=== PATIENT | female | born 1980 | race African-American/Black ===

== ENCOUNTER 2016-11-11 00:04 | Emergency (ER) | payer OTHER ==
[~2016-11-11] VITALS: Ht 162.6 cm; Wt 89.0 kg
[~2016-11-11 00:04] MED LIST: BACTRIM DS1 TAB PO; CIPRO500 MG OR; CIPROFLOXACN500 MG PO; DOXYCYCL HYC100 MG PO; ERYTHROCIN500 MG OR; FLEXERIL OR; FLEXERIL PO; FOLIC ACID400 MC1 OR; IBUPROFEN600 MG PO; IRON325 MG PO; LORTAB 10 OR; LORTAB 5 OR; LORTAB 7.57.5 MG PO; MEDDOSEPAK PO; MIRALAX3350 N1 PO; MOTRIN800 MG OR; NAPROSYN500 MG OR; NAPROSYN500 MG PO; NAPROXEN500 MG OR; NO HOME MEDS; NO MEDS; NORCO1 TA1 PO; NORCO1 TA2 PO; ONDANSETRON4 MG PO; PERCOCET 10/31 COMBO PO; PERCOCET 5/325M1 TAB PO; PERCOCET1 TA4 PO; PRENATA3 OR; PRENATA3 PO; PREVACID30 M2 PO; PROAIR HFA IN; PROCARDIA10 MG PO; ROBITUSSI2 OR; ROBITUSSIN200 MG/10 PO; Robitussin DM OR; TESSALON PER100 MG PO; TYLENOL325 MG PO; ULTRAM50 M1 OR; ULTRAM50 M1 PO; ULTRAM50 MG OR; VICODIN1 TA1 PO; VISTARIL25 MG PO; ZITHROMAX250 MG OR; ZITHROMAX250 MG PO; ZOFRAN ODT4 MG OR; ZOFRAN ODT4 MG PO; ZOFRAN4 MG/TAB PO; ZPAK OR; ZPAK PO
[2016-11-11] MEDS ORDERED: TORADOL PO (01:09)
[2016-11-11] MEDS ORDERED: CLINDAMYCIN300 M1 PO (01:09)
[2016-11-11 01:29] VITALS: BP 118/70
== END 2016-11-11 01:30 | disposition home or self-care (01) | DRG 159 ==
LOC: ED 00:04
DX: K08.89 Other specified disorders of teeth and supporting structures (principal)

== ENCOUNTER 2017-01-15 09:47 | Emergency (ER) | payer SELFPAY ==
[~2017-01-15] VITALS: Ht 162.6 cm; Wt 100.0 kg
[~2017-01-15 09:47] MED LIST changes: +CLINDAMYCIN300 M1 PO; +TORADOL PO
[2017-01-15 10:41] LABS: HEMATOCRIT 37.5 % (37.0-47.0); HEMOGLOBIN 11.9 g/dl (12.0-16.0); IMMATURE GRANULOCYTES 0.2 % (0.0-1.0); MEAN CELL VOLUME 70.9 fL CALC (80.0-100.0); MEAN CORPUSCULAR HGB 22.5 pG CALC (26.0-32.0); MEAN CORPUSCULAR HGB CONC 31.7 g/L CALC (32.0-36.0); NEUT# 4.4 thou/uL (2.00-7.15); RED BLOOD COUNT 5.29 mill/uL (4.20-5.60); RED CELL DISTRI WIDTH 14.9 % (11.5-15.5)
[2017-01-15 10:42] LABS: URINE BILIRUBIN - DIPSTICK NEGATIVE (NEGATIVE); URINE BLOOD DIPSTICK NEGATIVE (NEGATIVE); URINE CLARITY CLEAR; URINE COLOR YELLOW; URINE GLUCOSE - DIPSTICK NEGATIVE (NEGATIVE); URINE KETONE NEGATIVE (NEGATIVE); URINE LEUK ESTERASE TRACE (Negative); URINE NITRITE - DIPSTICK NEGATIVE (Negative); URINE PROTEIN - DIPSTICK NEGATIVE (NEG-TRACE); URINE UROBILINOGEN - DIPSTICK 0.2 E.U./dL (0.2)
[2017-01-15 11:04] LABS: ALBUMIN 4.2 g/dL (3.2-5.0); ALKALINE PHOSPHATASE 76 u/l (38-126); ANION GAP 14 (6-22 (CALC)); BILIRUBIN, TOTAL 0.3 mg/dL (0.0-1.4); BUN 12 mg/dL (7-17); BUN/CREATININE RATIO 15 (12-20 (CALC)); CALCIUM 9.4 mg/dL (8.4-10.2); CARBON DIOXIDE 27 mmol/l (22-30); CHLORIDE 106 mmol/l (95-108); CREATININE 0.8 mg/dL (0.5-1.0); GFR > 60 ML/MIN (>=60 (CALC)); GFR FOR AFR.AMER. > 60 ML/MIN (>=60 (CALC)); GLUCOSE 92 mg/dL (65-105); LIPASE 58 u/l (23-300); POTASSIUM 4.4 mmol/l (3.5-5.1); SGOT/AST 31 u/l (14-36); SGPT/ALT 42 u/l (9-52); SODIUM 142 mmol/l (137-146); TOTAL PROTEIN 6.8 g/dL (6.3-8.2)
[2017-01-15 12:06] VITALS: BP 111/61
[2017-01-15] MEDS ORDERED: IBUPROFEN600 MG PO (12:41)
[2017-01-15] MEDS ORDERED: FLEXERIL PO (12:41)
== END 2017-01-15 12:56 | disposition home or self-care (01) | DRG 951 ==
LOC: ED 09:47
PROVIDERS: Emergency Medicine
DX: F17.210 Nicotine dependence, cigarettes, uncomplicated (principal); F41.9 Anxiety disorder, unspecified; M54.5 Low back pain; J45.909 Unspecified asthma, uncomplicated; G89.29 Other chronic pain; R10.32 Left lower quadrant pain

== ENCOUNTER 2017-02-03 20:45 | Emergency (ER) | payer MEDICAID ==
[~2017-02-03] VITALS: Ht 162.6 cm; Wt 90.0 kg
[2017-02-03] MEDS ORDERED: MOTRIN800 MG PO (21:54)
[2017-02-03] MEDS ORDERED: FLEXERIL PO (21:54)
[2017-02-03 22:00] VITALS: BP 117/66
== END 2017-02-03 22:09 | disposition home or self-care (01) | DRG 563 ==
LOC: ED 20:45
DX: S83.92XA Sprain of unspecified site of left knee, initial encounter (principal); S09.90XA Unspecified injury of head, initial encounter; Y04.2XXA Assault by strike against or bumped into by another person, initial encounter; X50.1XXA Overexertion from prolonged static or awkward postures, initial encounter; Y93.F9 Activity, other caregiving; Y92.126 Garden or yard of nursing home as the place of occurrence of the external cause

== ENCOUNTER 2017-05-01 01:17 | Emergency (ER) | payer SELFPAY ==
[~2017-05-01] VITALS: Ht 162.6 cm; Wt 90.9 kg
[~2017-05-01 01:17] MED LIST changes: +MOTRIN800 MG PO
[2017-05-01] MEDS ORDERED: LORTAB 10-325 M1 TAB PO (01:44)
[2017-05-01 02:35] VITALS: BP 120/65
== END 2017-05-01 02:35 | disposition home or self-care (01) | DRG 563 ==
LOC: ED 01:17
DX: S83.92XA Sprain of unspecified site of left knee, initial encounter (principal); F41.9 Anxiety disorder, unspecified; J45.909 Unspecified asthma, uncomplicated; G89.29 Other chronic pain; M54.5 Low back pain; F17.210 Nicotine dependence, cigarettes, uncomplicated; X50.1XXA Overexertion from prolonged static or awkward postures, initial encounter

== ENCOUNTER 2017-07-05 21:58 | Emergency (ER) | payer OTHER ==
[~2017-07-05] VITALS: Ht 162.6 cm; Wt 88.6 kg
[~2017-07-05 21:58] MED LIST changes: +LORTAB 10-325 M1 TAB PO
[2017-07-05 23:45] LABS: INFLUENZA A NONE DETECTED (NONE DETECT); INFLUENZA B NONE DETECTED (NONE DETECT)
[2017-07-06] MEDS ORDERED: ROBITUSSIN200 MG/10 PO (00:05)
[2017-07-06] MEDS ORDERED: CIPROFLOXACN500 MG PO (00:06)
[2017-07-06 00:11] VITALS: BP 101/62
== END 2017-07-06 00:18 | disposition home or self-care (01) | DRG 153 ==
LOC: ED 21:58
PROVIDERS: Emergency Medicine
DX: J06.9 Acute upper respiratory infection, unspecified (principal); F17.210 Nicotine dependence, cigarettes, uncomplicated; J45.909 Unspecified asthma, uncomplicated; G89.29 Other chronic pain; M54.5 Low back pain

== ENCOUNTER 2017-11-06 02:45 | Emergency (ER) | payer BC ==
[~2017-11-06] VITALS: Ht 162.6 cm; Wt 86.4 kg
[~2017-11-06 02:45] MED LIST changes: +GENTAMICIN15 ML/BTL OU; +TAM75CAP PO
[2017-11-06 03:26] LABS: INFLUENZA A NONE DETECTED (NONE DETECT); INFLUENZA B NONE DETECTED (NONE DETECT)
[2017-11-06] MEDS ORDERED: PROVENTIL HFA IN (03:40)
[2017-11-06] MEDS ORDERED: CODEINE/GUAIFEN1 SOL PO (03:40)
[2017-11-06] MEDS ORDERED: ZITHROMAX250 MG PO (03:40)
[2017-11-06 03:52] VITALS: BP 92/64
== END 2017-11-06 03:52 | disposition home or self-care (01) | DRG 203 ==
LOC: ED 02:45
PROVIDERS: Emergency Medicine
DX: J40 Bronchitis, not specified as acute or chronic (principal); J02.9 Acute pharyngitis, unspecified

== ENCOUNTER 2018-09-14 13:32 | Emergency (ER) | payer OTHER ==
[~2018-09-14] VITALS: Ht 162.6 cm; Wt 70.0 kg
[~2018-09-14 13:32] MED LIST changes: +CODEINE/GUAIFEN1 SOL PO; +DOXYCYC MONO100 M2 PO; +IPRATROPIU0.5 MG/3 M IN; +PREDNISONE10 MG PO; +PROTONIX40 M2 PO; +PROVENTIL HFA IN
[2018-09-14] MEDS ORDERED: PANTOPRAZOLE SO40 MG PO (13:50)
[2018-09-14 14:05] LABS: HEMOGLOBIN 13.6 g/dl (12.0-16.0); IMMATURE GRANULOCYTES 0.6 % (0.0-5.0); MEAN CELL VOLUME 71.8 fL CALC (80.0-100.0); MEAN CORPUSCULAR HGB 22.7 pG CALC (26.0-32.0); MEAN CORPUSCULAR HGB CONC 31.6 g/L CALC (32.0-36.0); NEUT# 4.87 thou/uL (2.00-7.15); RED BLOOD COUNT 5.99 mill/uL (4.20-5.60); RED CELL DISTRI WIDTH 16.2 % (11.5-15.5)
[2018-09-14 14:14] LABS: ALBUMIN 4.4 g/dL (3.2-5.0); ALKALINE PHOSPHATASE 79 u/l (38-126); BILIRUBIN, TOTAL 0.2 mg/dL (0.0-1.4); BUN 8 mg/dL (7-17); BUN/CREATININE RATIO 10 (12-20 (CALC)); CARBON DIOXIDE 21 mmol/l (22-30); CHLORIDE 106 mmol/l (95-108); CREATININE 0.8 mg/dL (0.5-1.0); GFR > 60 ML/MIN (>=60 (CALC)); GFR FOR AFR.AMER. > 60 ML/MIN (>=60 (CALC)); SGOT/AST 21 u/l (14-36); SODIUM 139 mmol/l (137-146); TOTAL PROTEIN 7.4 g/dL (6.3-8.2)
[2018-09-14 14:28] LABS: ANION GAP 16 (6-22 (CALC)); POTASSIUM 3.5 mmol/l (3.5-5.1)
[2018-09-14] MEDS ORDERED: MEDDOSEPAK PO (16:34)
[2018-09-14 16:37] VITALS: BP 130/86
== END 2018-09-14 16:42 | disposition home or self-care (01) ==
LOC: ED 13:32
PROVIDERS: Emergency Medicine
DX: J45.909 Unspecified asthma, uncomplicated (principal); R00.0 Tachycardia, unspecified; F17.200 Nicotine dependence, unspecified, uncomplicated; R07.9 Chest pain, unspecified; R06.02 Shortness of breath
CPT/HCPCS: Q9967

== ENCOUNTER 2018-10-30 16:14 | Emergency (ER) | payer OTHER ==
[~2018-10-30] VITALS: Ht 162.6 cm; Wt 86.0 kg
[~2018-10-30 16:14] MED LIST changes: +PANTOPRAZOLE SO40 MG PO
[2018-10-30] MEDS ORDERED: ZPAK PO (19:14)
[2018-10-30] MEDS ORDERED: TESSALON PERLE100 MG PO (19:14)
[2018-10-30 19:25] VITALS: BP 117/80
== END 2018-10-30 19:25 | disposition home or self-care (01) ==
LOC: ED 16:14
DX: R05 Cough (principal)

== ENCOUNTER 2018-11-08 12:55 | Emergency (ER) | payer OTHER ==
[~2018-11-08] VITALS: Ht 162.6 cm; Wt 86.4 kg
[~2018-11-08 12:55] MED LIST changes: +TESSALON PERLE100 MG PO
[2018-11-08 14:14] LABS: HEMATOCRIT 39.8 % (37.0-47.0); HEMOGLOBIN 12.4 g/dl (12.0-16.0); IMMATURE GRANULOCYTES 0.3 % (0.0-5.0); MEAN CELL VOLUME 72.2 fL CALC (80.0-100.0); MEAN CORPUSCULAR HGB 22.5 pG CALC (26.0-32.0); MEAN CORPUSCULAR HGB CONC 31.2 g/L CALC (32.0-36.0); NEUT# 4.16 thou/uL (2.00-7.15); RED BLOOD COUNT 5.51 mill/uL (4.20-5.60); RED CELL DISTRI WIDTH 15.5 % (11.5-15.5)
[2018-11-08 14:24] LABS: ALBUMIN 4.3 g/dL (3.2-5.0); ALKALINE PHOSPHATASE 73 u/l (38-126); BILIRUBIN, TOTAL 0.6 mg/dL (0.0-1.4); BUN 14 mg/dL (7-17); BUN/CREATININE RATIO 17 (12-20 (CALC)); CARBON DIOXIDE 24 mmol/l (22-30); CHLORIDE 102 mmol/l (95-108); CREATININE 0.8 mg/dL (0.5-1.0); GFR > 60 ML/MIN (>=60 (CALC)); GFR FOR AFR.AMER. > 60 ML/MIN (>=60 (CALC)); SGOT/AST 29 u/l (14-36); SODIUM 137 mmol/l (137-146); TOTAL PROTEIN 7.2 g/dL (6.3-8.2)
[2018-11-08 14:37] LABS: ANION GAP 16 (6-22 (CALC)); POTASSIUM 4.5 mmol/l (3.5-5.1)
[2018-11-08 15:32] LABS: BARBITURATES NEGATIVE (NEGATIVE); COCAINE POSITIVE (NEGATIVE); METHADONE NEGATIVE (NEGATIVE); OXCYCODONE NEGATIVE (NEGATIVE); TETRAHYDROCANNABIONOL POSITIVE (NEGATIVE); TRICYLIC ANTIDEPRESSANTS NEGATIVE (NEGATIVE)
[2018-11-08] MEDS ORDERED: LEVAQUIN500 MG PO (17:19)
[2018-11-08 17:24] VITALS: BP 114/69
== END 2018-11-08 17:25 | disposition home or self-care (01) ==
LOC: ED 12:55
PROVIDERS: Emergency Medicine
DX: R06.00 Dyspnea, unspecified (principal); J06.9 Acute upper respiratory infection, unspecified; F14.10 Cocaine abuse, uncomplicated; F12.10 Cannabis abuse, uncomplicated; R07.9 Chest pain, unspecified; R05 Cough
CPT/HCPCS: Q9967

== ENCOUNTER 2018-11-29 13:21 | Emergency (ER) | payer OTHER ==
[~2018-11-29] VITALS: Ht 162.6 cm; Wt 86.0 kg
[~2018-11-29 13:21] MED LIST changes: +LEVAQUIN500 MG PO
[2018-11-29 14:42] LABS: HEMATOCRIT 39.7 % (37.0-47.0); HEMOGLOBIN 12.6 g/dl (12.0-16.0); IMMATURE GRANULOCYTES 0.3 % (0.0-5.0); MEAN CELL VOLUME 72.2 fL CALC (80.0-100.0); MEAN CORPUSCULAR HGB 22.9 pG CALC (26.0-32.0); MEAN CORPUSCULAR HGB CONC 31.7 g/L CALC (32.0-36.0); NEUT# 5.33 thou/uL (2.00-7.15); RED BLOOD COUNT 5.5 mill/uL (4.20-5.60)
[2018-11-29 14:49] LABS: URINE BILIRUBIN - DIPSTICK NEGATIVE (NEGATIVE); URINE BLOOD DIPSTICK NEGATIVE (NEGATIVE); URINE COLOR YELLOW; URINE GLUCOSE - DIPSTICK NEGATIVE (NEGATIVE); URINE KETONE NEGATIVE (NEGATIVE); URINE LEUK ESTERASE NEGATIVE (NEGATIVE); URINE NITRITE - DIPSTICK NEGATIVE (Negative); URINE PROTEIN - DIPSTICK NEGATIVE (NEG-TRACE); URINE SPECIFIC GRAVITY >=1.030; URINE UROBILINOGEN - DIPSTICK 0.2 E.U./dL (0.2)
[2018-11-29 14:51] LABS: ALBUMIN 4.6 g/dL (3.2-5.0); ALKALINE PHOSPHATASE 90 u/l (38-126); ANION GAP 15 (6-22 (CALC)); BILIRUBIN, TOTAL 0.4 mg/dL (0.0-1.4); BUN 14 mg/dL (7-17); BUN/CREATININE RATIO 16 (12-20 (CALC)); CARBON DIOXIDE 23 mmol/l (22-30); CHLORIDE 105 mmol/l (95-108); CREATININE 0.9 mg/dL (0.5-1.0); GFR > 60 ML/MIN (>=60 (CALC)); GFR FOR AFR.AMER. > 60 ML/MIN (>=60 (CALC)); POTASSIUM 4.3 mmol/l (3.5-5.1); SGOT/AST 20 u/l (14-36); SODIUM 138 mmol/l (137-146); TOTAL PROTEIN 7.1 g/dL (6.3-8.2)
[2018-11-29 14:53] LABS: BARBITURATES NEGATIVE (NEGATIVE); COCAINE POSITIVE (NEGATIVE); METHADONE NEGATIVE (NEGATIVE); OXCYCODONE NEGATIVE (NEGATIVE); TETRAHYDROCANNABIONOL POSITIVE (NEGATIVE); TRICYLIC ANTIDEPRESSANTS NEGATIVE (NEGATIVE)
[2018-11-29 15:55] VITALS: BP 125/76
== END 2018-11-29 16:02 | disposition home or self-care (01) ==
LOC: ED 13:21
PROVIDERS: Emergency Medicine
DX: M79.10 Myalgia, unspecified site (principal); F14.90 Cocaine use, unspecified, uncomplicated; F15.90 Other stimulant use, unspecified, uncomplicated; F12.90 Cannabis use, unspecified, uncomplicated; F11.90 Opioid use, unspecified, uncomplicated; R05 Cough

== ENCOUNTER 2018-12-08 13:52 | Emergency (ER) | payer OTHER ==
[~2018-12-08] VITALS: Ht 162.6 cm; Wt 84.1 kg
[2018-12-08] MEDS ORDERED: ONDANSETRON4 MG PO (16:07)
[2018-12-08] MEDS ORDERED: CYCLOBENZAPR5 MG PO (16:07)
[2018-12-08] MEDS ORDERED: MOTRIN400 MG PO (16:07)
[2018-12-08 16:14] VITALS: BP 132/67
== END 2018-12-08 16:15 | disposition home or self-care (01) ==
LOC: ED 13:52
DX: S46.911A Strain of unspecified muscle, fascia and tendon at shoulder and upper arm level, right arm, initial encounter (principal); M25.511 Pain in right shoulder; Y04.0XXA Assault by unarmed brawl or fight, initial encounter; Y92.009 Unspecified place in unspecified non-institutional (private) residence as the place of occurrence of the external cause

== ENCOUNTER 2018-12-12 13:45 | Emergency (ER) | payer OTHER ==
[~2018-12-12] VITALS: Ht 162.6 cm; Wt 60.0 kg
[~2018-12-12 13:45] MED LIST changes: +CYCLOBENZAPR5 MG PO; +MOTRIN400 MG PO
[2018-12-12] MEDS ORDERED: TORADOL PO (14:50)
[2018-12-12 15:00] VITALS: BP 121/78
== END 2018-12-12 15:00 | disposition home or self-care (01) ==
LOC: ED 13:45
DX: M25.511 Pain in right shoulder (principal); Y04.0XXD Assault by unarmed brawl or fight, subsequent encounter; Y92.009 Unspecified place in unspecified non-institutional (private) residence as the place of occurrence of the external cause

== ENCOUNTER 2019-03-23 15:30 | Emergency (ER) | payer BC, OTHER ==
[~2019-03-23] VITALS: Ht 162.6 cm; Wt 80.0 kg
[2019-03-23 16:21] LABS: URINE BILIRUBIN - DIPSTICK NEGATIVE (NEGATIVE); URINE BLOOD DIPSTICK NEGATIVE (NEGATIVE); URINE COLOR YELLOW; URINE GLUCOSE - DIPSTICK NEGATIVE (NEGATIVE); URINE KETONE NEGATIVE (NEGATIVE); URINE LEUK ESTERASE NEGATIVE (NEGATIVE); URINE NITRITE - DIPSTICK NEGATIVE (Negative); URINE PH 6.5 (4.5-8.0); URINE PROTEIN - DIPSTICK NEGATIVE (NEG-TRACE); URINE SPECIFIC GRAVITY 1.015; URINE UROBILINOGEN - DIPSTICK 0.2 E.U./dL (0.2)
[2019-03-23 16:25] LABS: HEMATOCRIT 35.3 % (37.0-47.0); HEMOGLOBIN 11.1 g/dl (12.0-16.0); IMMATURE GRANULOCYTES 0.3 % (0.0-5.0); MEAN CORPUSCULAR HGB 22.7 pG CALC (26.0-32.0); MEAN CORPUSCULAR HGB CONC 31.4 g/L CALC (32.0-36.0); NEUT# 4.84 thou/uL (2.00-7.15); RED BLOOD COUNT 4.9 mill/uL (4.20-5.60); RED CELL DISTRI WIDTH 15.3 % (11.5-15.5)
[2019-03-23 16:36] LABS: ALBUMIN 4.4 g/dL (3.2-5.0); ALKALINE PHOSPHATASE 78 u/l (38-126); BILIRUBIN, TOTAL 0.3 mg/dL (0.0-1.4); BUN 11 mg/dL (7-17); BUN/CREATININE RATIO 15 (12-20 (CALC)); CHLORIDE 104 mmol/l (95-108); CREATININE 0.7 mg/dL (0.5-1.0); GFR > 60 ML/MIN (>=60 (CALC)); GFR FOR AFR.AMER. > 60 ML/MIN (>=60 (CALC)); POTASSIUM 4.4 mmol/l (3.5-5.1); SGOT/AST 20 u/l (14-36); SODIUM 138 mmol/l (137-146); TOTAL PROTEIN 6.9 g/dL (6.3-8.2)
[2019-03-23 16:37] LABS: ANION GAP 10 (6-22 (CALC)); CARBON DIOXIDE 28 mmol/l (22-30)
[2019-03-23] MEDS ORDERED: DICYCLOMINE 10 MG/ML IM (17:20)
[2019-03-23] MEDS ORDERED: TORADOL PO (17:21)
[2019-03-23 17:34] VITALS: BP 106/71
[2019-03-23] MEDS ORDERED: DICYCLOMINE10 MG PO (17:44)
== END 2019-03-23 17:51 | disposition home or self-care (01) | DRG 392 ==
LOC: ED 15:30
PROVIDERS: Emergency Medicine
DX: R10.9 Unspecified abdominal pain (principal); F17.210 Nicotine dependence, cigarettes, uncomplicated; Z87.442 Personal history of urinary calculi

== ENCOUNTER 2019-05-04 19:05 | Emergency (ER) | payer BC, OTHER ==
[~2019-05-04] VITALS: Ht 162.6 cm; Wt 87.7 kg
[~2019-05-04 19:05] MED LIST changes: +DICYCLOMINE 10 MG/ML IM; +DICYCLOMINE10 MG PO
[2019-05-04] MEDS ORDERED: ZITHROMAX250 MG PO (20:52)
[2019-05-04 21:00] VITALS: BP 118/70
== END 2019-05-04 21:00 | disposition home or self-care (01) | DRG 153 ==
LOC: ED 19:05
DX: J06.9 Acute upper respiratory infection, unspecified (principal); J45.909 Unspecified asthma, uncomplicated; Z87.01 Personal history of pneumonia (recurrent)

== ENCOUNTER 2019-05-11 01:08 | Emergency (ER) | payer BC, OTHER ==
[~2019-05-11] VITALS: Ht 162.6 cm; Wt 87.7 kg
[2019-05-11 01:42] LABS: HEMOGLOBIN 11.1 g/dl (12.0-16.0); IMMATURE GRANULOCYTES 0.4 % (0.0-5.0); MEAN CORPUSCULAR HGB 22.2 pG CALC (26.0-32.0); MEAN CORPUSCULAR HGB CONC 30.8 g/L CALC (32.0-36.0); NEUT# 2.95 thou/uL (2.00-7.15); RED CELL DISTRI WIDTH 15.1 % (11.5-15.5)
[2019-05-11 03:38] VITALS: BP 110/72
== END 2019-05-11 03:53 | disposition home or self-care (01) | DRG 866 ==
LOC: ED 01:08
PROVIDERS: Family Medicine
DX: B34.9 Viral infection, unspecified (principal); F17.210 Nicotine dependence, cigarettes, uncomplicated

== ENCOUNTER 2019-06-12 10:44 | Observation (INO) | payer BC, OTHER ==
[~2019-06-12] VITALS: Ht 162.6 cm; Wt 81.8 kg
[2019-06-12] MEDS ORDERED: MONTELUKAST SOD10 MG PO (10:52)
[2019-06-12] MEDS ORDERED: DOXYCYC MONO100 M2 PO (10:52)
[2019-06-12] MEDS ORDERED: PROTONIX20 M1 PO (10:52)
[2019-06-12] MEDS ORDERED: ALBUTEROL SUL0.083 % IN (10:53)
[2019-06-12] MEDS ORDERED: SYMBICORT 80-4.5MCG IN (10:53)
[2019-06-12 11:24] LABS: HEMATOCRIT 36.4 % (37.0-47.0); HEMOGLOBIN 11.7 g/dl (12.0-16.0); IMMATURE GRANULOCYTES 0.4 % (0.0-5.0); MEAN CELL VOLUME 70.7 fL CALC (80.0-100.0); MEAN CORPUSCULAR HGB 22.7 pG CALC (26.0-32.0); MEAN CORPUSCULAR HGB CONC 32.1 g/L CALC (32.0-36.0); NEUT# 5.37 thou/uL (2.00-7.15); RED BLOOD COUNT 5.15 mill/uL (4.20-5.60)
[2019-06-12 11:32] LABS: ANION GAP 14 (6-22 (CALC)); BUN 11 mg/dL (7-17); BUN/CREATININE RATIO 15 (12-20 (CALC)); CHLORIDE 103 mmol/l (95-108); CREATININE 0.7 mg/dL (0.5-1.0); GFR > 60 ML/MIN (>=60 (CALC)); GFR FOR AFR.AMER. > 60 ML/MIN (>=60 (CALC)); POTASSIUM 4.1 mmol/l (3.5-5.1); SODIUM 135 mmol/l (137-146)
[2019-06-12 11:38] LABS: CARBON DIOXIDE 22 mmol/l (22-30)
[2019-06-12 14:25] VITALS: BP 111/70
[2019-06-12 16:22] VITALS: BP 117/64
[2019-06-12 19:10] VITALS: BP 117/66
[2019-06-13 04:42] VITALS: BP 100/67
[2019-06-13 05:00] LABS: HEMATOCRIT 36.2 % (37.0-47.0); HEMOGLOBIN 11.2 g/dl (12.0-16.0); MEAN CORPUSCULAR HGB 22.3 pG CALC (26.0-32.0); MEAN CORPUSCULAR HGB CONC 30.9 g/L CALC (32.0-36.0); RED BLOOD COUNT 5.03 mill/uL (4.20-5.60); RED CELL DISTRI WIDTH 15.3 % (11.5-15.5)
[2019-06-13 05:24] LABS: ANION GAP 13 (6-22 (CALC)); BUN 15 mg/dL (7-17); BUN/CREATININE RATIO 19 (12-20 (CALC)); CARBON DIOXIDE 22 mmol/l (22-30); CHLORIDE 106 mmol/l (95-108); CREATININE 0.8 mg/dL (0.5-1.0); GFR > 60 ML/MIN (>=60 (CALC)); GFR FOR AFR.AMER. > 60 ML/MIN (>=60 (CALC)); POTASSIUM 4.9 mmol/l (3.5-5.1); SODIUM 136 mmol/l (137-146)
[2019-06-13 07:40] VITALS: BP 114/57
[2019-06-13 15:20] VITALS: BP 96/59
[2019-06-13 18:48] VITALS: BP 93/53
[2019-06-14 03:43] VITALS: BP 110/66
[2019-06-14 07:44] VITALS: BP 101/52
[2019-06-14 15:20] VITALS: BP 126/89
[2019-06-14 18:52] VITALS: BP 104/66
[2019-06-15 03:37] VITALS: BP 102/58
[2019-06-15 04:48] LABS: HEMATOCRIT 35.1 % (37.0-47.0); HEMOGLOBIN 11.1 g/dl (12.0-16.0); IMMATURE GRANULOCYTES 1.2 % (0.0-5.0); MEAN CELL VOLUME 71.5 fL CALC (80.0-100.0); MEAN CORPUSCULAR HGB 22.6 pG CALC (26.0-32.0); MEAN CORPUSCULAR HGB CONC 31.6 g/L CALC (32.0-36.0); NEUT# 16.28 thou/uL (2.00-7.15); RED BLOOD COUNT 4.91 mill/uL (4.20-5.60); RED CELL DISTRI WIDTH 15.4 % (11.5-15.5)
[2019-06-15 05:09] LABS: ANION GAP 11 (6-22 (CALC)); BUN 17 mg/dL (7-17); BUN/CREATININE RATIO 23 (12-20 (CALC)); CARBON DIOXIDE 25 mmol/l (22-30); CHLORIDE 104 mmol/l (95-108); CREATININE 0.7 mg/dL (0.5-1.0); GFR > 60 ML/MIN (>=60 (CALC)); GFR FOR AFR.AMER. > 60 ML/MIN (>=60 (CALC)); SODIUM 135 mmol/l (137-146)
[2019-06-15 07:35] VITALS: BP 100/57
[2019-06-15 16:00] VITALS: BP 98/55
[2019-06-15 19:50] VITALS: BP 118/70
[2019-06-16 04:10] VITALS: BP 107/62
[2019-06-16] MEDS ORDERED: LEVAQUIN750 MG PO (11:39)
[2019-06-16] MEDS ORDERED: PREDNISONE10 MG PO (11:39)
== END 2019-06-16 12:24 | disposition home or self-care (01) | DRG 194 ==
LOC: ED 10:44 → ED-I 11:58 → ED 12:15 → MS2 12:16
PROVIDERS: Family Medicine; Nurse Practitioner Family; ADMIT Internal Medicine; ATTEND Internal Medicine
PROC: 3E0234Z Introduction of Serum, Toxoid and Vaccine into Muscle, Percutaneous Approach (ICD-10-PCS; principal; 2019-06-14)
DX: J18.9 Pneumonia, unspecified organism (principal); J45.901 Unspecified asthma with (acute) exacerbation; B37.0 Candidal stomatitis; D50.9 Iron deficiency anemia, unspecified; K21.9 Gastro-esophageal reflux disease without esophagitis; F41.9 Anxiety disorder, unspecified; F17.200 Nicotine dependence, unspecified, uncomplicated; Z87.01 Personal history of pneumonia (recurrent); Z23 Encounter for immunization
CPT/HCPCS: G0378

== ENCOUNTER 2019-09-02 | Emergency (ER) | payer BC ==
[~2019-09-02] MED LIST changes: +ALBUTEROL SUL0.083 % IN; +LEVAQUIN750 MG PO; +MONTELUKAST SOD10 MG PO; +PROTONIX20 M1 PO; +SYMBICORT 80-4.5MCG IN
[2019-09-02] MEDS ORDERED: PROAIR HFA108 MCG/AC PO (22:08)
[2019-09-02] MEDS ORDERED: VOLTAREN - GENE75 MG PO (23:17)
[2019-09-02] MEDS ORDERED: FLEXERIL5 MG PO (23:17)
== END 2019-09-02 23:50 | disposition home or self-care (01) | DRG 74 ==
DX: M54.12 Radiculopathy, cervical region (principal); F17.210 Nicotine dependence, cigarettes, uncomplicated

== ENCOUNTER 2019-09-14 08:24 | Observation (INO) | payer BC ==
[~2019-09-14] VITALS: Ht 162.6 cm; Wt 87.5 kg
[~2019-09-14 08:24] MED LIST changes: +FLEXERIL5 MG PO; +PROAIR HFA108 MCG/AC PO; +VOLTAREN - GENE75 MG PO
--- NOTE | 2019-09-14 08:24 | NUR ---
PT IMMEDIATELY TO ROOM VIA WC WITH TACHYPNEA AND CONSTANT COUGHING
[2019-09-14] MEDS ORDERED: PREDNISONE10 MG PO (08:47)
--- NOTE | 2019-09-14 09:15 | NUR ---
PATIENT REPORTS HISTORY OF ASTHMA, STARTED TO HAVE SOB AND WHEEZING LAST PM. CURRENTLY ON BREATHING TREATMENT. SECOND IV SITE STARTED TO LAC, IM EPI GIVEN PER MD ORDER. PATIENT VERBAL ALERT AND ORIENTED X3. PATIENT HAS WHEEZING TO BILATERAL LUNGS. IV MEDS INFUSING WELL. WILL CONTINUE TO MONITOR.
[2019-09-14 09:26] LABS: HEMATOCRIT 39.6 % (37.0-47.0); HEMOGLOBIN 12.3 g/dl (12.0-16.0); IMMATURE GRANULOCYTES 0.3 % (0.0-5.0); MEAN CELL VOLUME 71.9 fL CALC (80.0-100.0); MEAN CORPUSCULAR HGB 22.3 pG CALC (26.0-32.0); MEAN CORPUSCULAR HGB CONC 31.1 g/L CALC (32.0-36.0); NEUT# 4.45 thou/uL (2.00-7.15); RED BLOOD COUNT 5.51 mill/uL (4.20-5.60); RED CELL DISTRI WIDTH 14.5 % (11.5-15.5)
[2019-09-14 09:37] LABS: ALBUMIN 4.5 g/dL (3.2-5.0); ALKALINE PHOSPHATASE 88 u/l (38-126); ANION GAP 15 (6-22 (CALC)); BILIRUBIN, TOTAL 0.2 mg/dL (0.0-1.4); BUN 9 mg/dL (7-17); BUN/CREATININE RATIO 11 (12-20 (CALC)); CARBON DIOXIDE 23 mmol/l (22-30); CHLORIDE 104 mmol/l (95-108); CREATININE 0.8 mg/dL (0.5-1.0); GFR > 60 ML/MIN (>=60 (CALC)); GFR FOR AFR.AMER. > 60 ML/MIN (>=60 (CALC)); POTASSIUM 4.2 mmol/l (3.5-5.1); SGOT/AST 24 u/l (14-36); SODIUM 138 mmol/l (137-146); TOTAL PROTEIN 7.4 g/dL (6.3-8.2)
--- NOTE | 2019-09-14 09:45 | NUR ---
REPORT GIVEN TO MARGARET COX.
[2019-09-14 09:53] LABS: HCG SERUM/URINE (NEG/POS) NEGATIVE (NEGATIVE)
--- NOTE | 2019-09-14 10:20 | NUR ---
AMBULATED PT TO BATHROOM ,GAIT STEADY , NO RESP DISTRESS. URINE CLOUDY YELLOW WITH FOUL ODOR. EDP UPDATED
[2019-09-14 10:41] LABS: URINE BILIRUBIN - DIPSTICK NEGATIVE (NEGATIVE); URINE BLOOD DIPSTICK NEGATIVE (NEGATIVE); URINE COLOR YELLOW; URINE GLUCOSE - DIPSTICK NEGATIVE (NEGATIVE); URINE KETONE NEGATIVE (NEGATIVE); URINE LEUK ESTERASE NEGATIVE (NEGATIVE); URINE NITRITE - DIPSTICK NEGATIVE (Negative); URINE PH 6.5 (4.5-8.0); URINE PROTEIN - DIPSTICK NEGATIVE (NEG-TRACE); URINE UROBILINOGEN - DIPSTICK 0.2 E.U./dL (0.2)
--- NOTE | 2019-09-14 10:45 | NUR ---
IV ABT INFUSING/FLUIDS INFUSING. PT AWARE OF PENDING ADMIT. IV SITES HEALTHY. RESPIRATIONS EVEN AND UNLABORED. VSS. SATS 100% ON RA. SLIGHT EXPIRATORY WHEEZE IN RLL. PRODUCTIVE COUGH
--- NOTE | 2019-09-14 11:14 | NUR ---
PT/DAUGHTER ADVISED THAT ANGELA WILL ARRIVE AT [facility] 1300 HOURS TO PROVIDED PORTABLE O2 FOR PT AND THEN SET UP APPROPRIATE HOME O2. BOTH VOICED UNDERSTANDING.
--- NOTE | 2019-09-14 11:30 | NUR ---
ATTEMPT TO CALL REPORT NURSE UNAVAILABLE AT THIS TIME.
--- NOTE | 2019-09-14 12:08 | NUR ---
REPORT CALLED TO MARGARET CLEARY, ON MEDSURG. IV SITES HEALTHY. SATS 100% RA RESP EVEN UNLABORED VSS.
[2019-09-14 12:25] VITALS: BP 117/80
--- NOTE | 2019-09-14 12:25 | NUR ---
PT TO MEDSURG VIA WC IN STABLE CONDITION. IV SITE HEALTHY. RESP EVEN UNLABORED CAP REFILL BRISK.
[2019-09-14 15:15] VITALS: BP 115/58
[2019-09-14 19:28] VITALS: BP 128/78
--- NOTE | 2019-09-14 19:30 | NUR ---
RECEIVED REPORT FROM MARGARET BEE.
--- NOTE | 2019-09-14 20:00 | NUR ---
ASSESSMENT COMPLETED. UPDATED ON POC. DENIES NEEDS/PAIN. IV SITE REMOVED FROM LAC PER PT'S REQUEST THIS IS A SECOND IV SITE AND CATHETER TIP INTACT. IV SITE TO RAC IS PATENT. PO FLUIDS AND SNACK PROVIDED. NO DISTRESS NOTED; PT. IS ON RA. ENCOURAGED TO CALL FOR ANY NEEDS. CALL LIGHT IS IN REACH. WILL CONTINUE TO MONITOR.
--- NOTE | 2019-09-14 21:42 | NUR ---
PT. C/O RIVAS AND MEDICATED WITH ORDERED PRN TYLENOL, WILL REASSESS.
--- NOTE | 2019-09-14 23:59 | NUR ---
RESTING IN BED WITH NO DISTRESS NOTED;DENIES NEEDS/PAIN. PLACED MEASURING DEVICE IN TOILET FOR OUTPUT. ENCOURAGED TO CALL FOR ANY NEEDS. CALL LIGHT IS IN REACH.
--- NOTE | 2019-09-15 02:17 | NUR ---
RESTINGIN BED WITH EYES CLOSED; RESP. EVEN AND UNLABORED. CALL LIGHT IS IN REACH.
[2019-09-15 03:45] VITALS: BP 112/69
--- NOTE | 2019-09-15 03:48 | NUR ---
PT. DENIES NEEDS/PAIN. VSS. ENCOURAGED TO CALL FOR ANY NEEDS.
[2019-09-15 07:29] VITALS: BP 115/76
--- NOTE | 2019-09-15 08:22 | NUR ---
ASSESSMENT DONE. PT IS A&O X3. PT STATED PAIN AND SHE HAS A COUGH. MEDICATED PT WITH TYLENOL. PT LUNGS SOUND/WHEEZES. IVF INFUSING WELL. CALL LIGHT IN REACH.
--- NOTE | 2019-09-15 11:10 | NUR ---
PT IS RESTING IN BED WITH NO S/S OF DISTRESS NOTED. PT DENIES NEEDS AT THIS TIME. CALL LIGHT IN REACH.
[2019-09-15] MEDS ORDERED: SINGULAIR10 MG PO (15:03)
[2019-09-15] MEDS ORDERED: ALBUTEROL SUL0.083 % NEB (15:04)
[2019-09-15 15:15] VITALS: BP 105/56
--- NOTE | 2019-09-15 15:26 | NUR ---
PT STATED SHE HAS A HEADACHE . MEDICATED PT WITH TYLENOL . PT DENIES ANY OTHER NEEDS AT THIS TIME. ICE CHIPS PROVIDED PER PT REQUEST. CALL LIGHT IN REACH.
[2019-09-15 19:15] VITALS: BP 106/56
--- NOTE | 2019-09-15 19:41 | NUR ---
PT SITTING IN BED WITH FAMILY MEMBERS AT BEDSIDE. A&O X3. NO DISTRESS NOTED. BREATH SOUNDS CLEAR UPON AUSCULTATION. NO PAIN REPORTED AT THIS TIME. ASSESSMENT COMPLETED. DISCUSSED POC. CALL LIGHT IN REACH. CONTINUE TO MONITOR.
--- NOTE | 2019-09-15 22:28 | NUR ---
PT C/O OF THROBBING RIVAS 04/25. TYLENOL GIVEN. GRACIA REASSESS
--- NOTE | 2019-09-16 00:03 | NUR ---
PT SLEEPING IN BED. NO DISTRESS NOTED. RESP EVEN AND UNALABORED. CONTINUE TO MONITOR.
--- NOTE | 2019-09-16 03:04 | NUR ---
PT LAYING IN BED. STATES "KADE WHITMORE THANK YOU" . CONTINUE TO MONITOR.
[2019-09-16 03:50] VITALS: BP 104/60
[2019-09-16 08:15] VITALS: BP 90/56
--- NOTE | 2019-09-16 08:15 | NUR ---
ASSESSMENT IS COMPLETED: IV SITE IS FREE FROM REDNESS OR EDEMA. HR IS REG,PULSES ARE STRONG X4, ABD IS SOFT WITH ACTIVE BS. BREATH SOUNDS ARE CLEAR AND DIMINISHED. TELE MONTIOR IN PLACE.
--- NOTE | 2019-09-16 08:20 | NUR ---
PT C/O CHEST PAIN (PRESSURE). EKG AND LABS ORDERED
--- NOTE | 2019-09-16 12:15 | NUR ---
PT IS RELAXING IN BED FAMILY IN THE ROOM. IV SITE IS FREE FROM REDNESS OR EDEMA.
[2019-09-16 15:20] VITALS: BP 111/72
--- NOTE | 2019-09-16 16:15 | NUR ---
PT REMAINS VISITING WITH FAMILY ON THE PHONE NO DISTRESS NOTED. IV SITE IS FREE FROM REDNESS OR EDEMA.
[2019-09-16 18:56] VITALS: BP 125/60
--- NOTE | 2019-09-16 19:48 | NUR ---
PT SITTING IN BED WITH SIGNIFICANT OTHER AND FAMILY MEMBER AT BEDSIDE. A&O X3. NO DISTRESS NOTED. POSTERIOR EXPIRATORY WHEEZES HEARD UPON AUSCULTATION. NO OTHER NEEDS AT THIS TIME. DISCUSSED POC. ASSESSMENT COMPLTED. CALL LIGHT IN REACH. CONTINUE TO MONITOR.
--- NOTE | 2019-09-16 22:30 | NUR ---
PT SLEEPING IN BED. NO DISTRESS NOTED. RESP EVEN AND UNLABORED. CONTINUE TO MONITOR.
--- NOTE | 2019-09-17 02:08 | NUR ---
PT SLEEPING IN BED. NO DISTRESS NOTED. RESP EVEN AND UNLABORED. CONTINUE TO MONITOR
[2019-09-17 04:33] VITALS: BP 105/66
[2019-09-17 08:10] VITALS: BP 123/63
--- NOTE | 2019-09-17 08:10 | NUR ---
ASSESSMENT IS COMPLTED: IV SITE IS FREE FROM REDNESS OR EDEMA HR IS REG, PULSES ARE STRONG X4, ABD IS SOFT WITH ACTIVE BS. BREATH SOUNDS ARE CLEAR AND DIMINISHED. CONTINUE TO OBSERVE AND MONITOR.
--- NOTE | 2019-09-17 12:45 | NUR ---
PT HAS BEEN RESTING IN BED WITH NO DISTRESS NOTED. IV SITE IS FREE FROM REDNESS OR EDEMA.
[2019-09-17] MEDS ORDERED: MEDDOSEPAK PO (14:44)
[2019-09-17] MEDS ORDERED: CIPROFLOXACN500 MG PO (14:44)
--- NOTE | 2019-09-17 17:55 | NUR ---
IV SITE DISCONTINUED CATHETER INTACT. NO REDNESS / STARTED TO SWELL WHEN ABT COMPELTED. DISCHARGE INSTRUCTIONS GIVEN AND VERBALIZED UNDERSTANDING. Discharge instructions given. Patient verbalizes understanding of same. Discharged in stable condition via Wheelchair to Home with family. All belongings sent with pt.
== END 2019-09-17 17:50 | disposition home or self-care (01) | DRG 203 ==
LOC: ED 08:24 → ED-I 10:29 → ED 10:42 → MS2 10:43
PROVIDERS: Family Medicine; ADMIT Internal Medicine; ATTEND Internal Medicine
DX: J45.41 Moderate persistent asthma with (acute) exacerbation (principal); J20.9 Acute bronchitis, unspecified; D64.9 Anemia, unspecified; K21.9 Gastro-esophageal reflux disease without esophagitis; F17.200 Nicotine dependence, unspecified, uncomplicated; Z87.01 Personal history of pneumonia (recurrent); Z88.0 Allergy status to penicillin
CPT/HCPCS: G0378; J1650; J3475

== ENCOUNTER 2019-11-29 | Emergency (ER) | payer SELFPAY ==
[~2019-11-29] MED LIST changes: +ALBUTEROL SUL0.083 % NEB; +SINGULAIR10 MG PO
[2019-11-29] MEDS ORDERED: TRAMADOL HYDROC50 M1 PO ×2 (18:12)
[2019-11-29] MEDS ORDERED: CYCLOBENZAPR5 MG PO ×2 (18:16)
== END 2019-11-29 17:50 | disposition home or self-care (01) | DRG 556 ==
DX: M25.562 Pain in left knee (principal)
CPT/HCPCS: L1830

== ENCOUNTER 2020-05-24 12:37 | Emergency (ER) | payer OTHER ==
[~2020-05-24] VITALS: Ht 162.6 cm; Wt 95.0 kg
[~2020-05-24 12:37] MED LIST changes: +TRAMADOL HYDROC50 M1 PO
[2020-05-24 13:22] VITALS: BP 119/76
[2020-05-24] MEDS ORDERED: HYDROCO/APAP1 TA9 PO (13:40)
== END 2020-05-24 13:37 | disposition home or self-care (01) ==
LOC: ED 12:37
DX: T22.311A Burn of third degree of right forearm, initial encounter (principal); T23.371A Burn of third degree of right wrist, initial encounter; T22.331A Burn of third degree of right upper arm, initial encounter; X16.XXXA Contact with hot heating appliances, radiators and pipes, initial encounter; Y93.89 Activity, other specified

== ENCOUNTER 2020-07-04 21:06 | Emergency (ER) | payer OTHER ==
[~2020-07-04] VITALS: Ht 162.6 cm; Wt 91.0 kg
[~2020-07-04 21:06] MED LIST changes: +HYDROCO/APAP1 TA9 PO
--- NOTE | 2020-07-04 21:18 | NUR ---
BREATHING TREATMENT GIVEN.
[2020-07-04] MEDS ORDERED: ALBUTERO1 IN (21:39)
[2020-07-04] MEDS ORDERED: PROAIR HFA108 MCG/AC IN (21:43)
[2020-07-04] MEDS ORDERED: PREDNISONE10 MG PO (21:44)
[2020-07-04 22:03] LABS: HEMATOCRIT 39.4 % (37.0-47.0); HEMOGLOBIN 12.1 g/dl (12.0-16.0); IMMATURE GRANULOCYTES 0.5 % (0.0-5.0); MEAN CELL VOLUME 71.5 fL CALC (80.0-100.0); MEAN CORPUSCULAR HGB CONC 30.7 g/dL CAL (32.0-36.0); NEUT# 5.14 thou/uL (2.00-7.15); RED BLOOD COUNT 5.51 mill/uL (4.20-5.60); RED CELL DISTRI WIDTH 15.3 % (11.5-15.5)
[2020-07-04 22:12] VITALS: BP 118/74
[2020-07-04 22:19] LABS: ALBUMIN 4.4 g/dL (3.2-5.0); ALKALINE PHOSPHATASE 104 u/l (38-126); ANION GAP 12 (6-22 (CALC)); BILIRUBIN, TOTAL 0.2 mg/dL (0.0-1.4); BUN 13 mg/dL (7-17); BUN/CREATININE RATIO 16 (12-20 (CALC)); CARBON DIOXIDE 24 mmol/l (22-30); CHLORIDE 106 mmol/l (95-108); CREATININE 0.8 mg/dL (0.5-1.0); GFR > 60 ML/MIN (>=60 (CALC)); GFR FOR AFR.AMER. > 60 ML/MIN (>=60 (CALC)); SGOT/AST 34 u/l (14-36); SODIUM 138 mmol/l (137-146); TOTAL PROTEIN 7.4 g/dL (6.3-8.2)
[2020-07-04 22:31] LABS: MYOGLOBIN 21 ng/mL (0 - 62)
[2020-07-04] MEDS ORDERED: PREDNISONE50 MG PO (22:59)
== END 2020-07-04 23:10 | disposition home or self-care (01) ==
LOC: ED 21:06
PROVIDERS: Family Medicine
DX: J45.901 Unspecified asthma with (acute) exacerbation (principal); F17.210 Nicotine dependence, cigarettes, uncomplicated; Z20.828 Contact with and (suspected) exposure to other viral communicable diseases
CPT/HCPCS: J0171

== ENCOUNTER 2020-07-07 16:14 | Emergency (ER) | payer OTHER ==
[~2020-07-07] VITALS: Ht 162.6 cm; Wt 91.0 kg
[~2020-07-07 16:14] MED LIST changes: +ALBUTERO1 IN; +PREDNISONE50 MG PO; +PROAIR HFA108 MCG/AC IN
[2020-07-07] MEDS ORDERED: SYMBICORT 80-4.5MCG (16:46)
[2020-07-07 16:59] LABS: ALBUMIN 4.6 g/dL (3.2-5.0); ALKALINE PHOSPHATASE 82 u/l (38-126); AMYLASE 88 u/l (30-110); ANION GAP 12 (6-22 (CALC)); BILIRUBIN, TOTAL 0.4 mg/dL (0.0-1.4); BUN 13 mg/dL (7-17); BUN/CREATININE RATIO 16 (12-20 (CALC)); CARBON DIOXIDE 27 mmol/l (22-30); CHLORIDE 103 mmol/l (95-108); CREATININE 0.8 mg/dL (0.5-1.0); GFR > 60 ML/MIN (>=60 (CALC)); GFR FOR AFR.AMER. > 60 ML/MIN (>=60 (CALC)); LIPASE 77 u/l (23-300); POTASSIUM 4.7 mmol/l (3.5-5.1); SGOT/AST 29 u/l (14-36); SODIUM 136 mmol/l (137-146)
[2020-07-07 17:03] LABS: HEMATOCRIT 42.4 % (37.0-47.0); IMMATURE GRANULOCYTES 0.7 % (0.0-5.0); MEAN CELL VOLUME 72.2 fL CALC (80.0-100.0); MEAN CORPUSCULAR HGB 22.1 pG CALC (26.0-32.0); MEAN CORPUSCULAR HGB CONC 30.7 g/dL CAL (32.0-36.0); NEUT# 9.57 thou/uL (2.00-7.15); RED BLOOD COUNT 5.87 mill/uL (4.20-5.60); RED CELL DISTRI WIDTH 16.7 % (11.5-15.5)
[2020-07-07 17:38] LABS: URINE BILIRUBIN - DIPSTICK NEGATIVE (NEGATIVE); URINE BLOOD DIPSTICK NEGATIVE (NEGATIVE); URINE COLOR YELLOW; URINE GLUCOSE - DIPSTICK NEGATIVE (NEGATIVE); URINE KETONE NEGATIVE (NEGATIVE); URINE LEUK ESTERASE NEGATIVE (NEGATIVE); URINE NITRITE - DIPSTICK NEGATIVE (Negative); URINE PROTEIN - DIPSTICK NEGATIVE (NEG-TRACE); URINE SPECIFIC GRAVITY 1.025; URINE UROBILINOGEN - DIPSTICK 0.2 E.U./dL (0.2)
[2020-07-07 20:15] VITALS: BP 108/70
== END 2020-07-07 20:15 | disposition home or self-care (01) ==
LOC: ED 16:14
DX: R07.9 Chest pain, unspecified (principal); J45.909 Unspecified asthma, uncomplicated; F17.200 Nicotine dependence, unspecified, uncomplicated; Z88.6 Allergy status to analgesic agent
CPT/HCPCS: S0164

== ENCOUNTER 2020-07-14 13:09 | Observation (INO) | payer OTHER ==
[~2020-07-14] VITALS: Ht 162.6 cm; Wt 86.8 kg
[~2020-07-14 13:09] MED LIST changes: +SYMBICORT 80-4.5MCG
--- NOTE | 2020-07-14 13:09 | NUR ---
PT ASSISTED OUT OF PERSONAL VEHICLE TO WHEELCHAIR TO ROOM FOR BEDSIDE TRIAGE.
[2020-07-14 13:29] LABS: HEMATOCRIT 43.7 % (37.0-47.0); HEMOGLOBIN 13.4 g/dl (12.0-16.0); IMMATURE GRANULOCYTES 1.1 % (0.0-5.0); MEAN CELL VOLUME 71.8 fL CALC (80.0-100.0); MEAN CORPUSCULAR HGB CONC 30.7 g/dL CAL (32.0-36.0); NEUT# 9.09 thou/uL (2.00-7.15); RED BLOOD COUNT 6.09 mill/uL (4.20-5.60); RED CELL DISTRI WIDTH 15.9 % (11.5-15.5)
[2020-07-14] MEDS ORDERED: ATIVAN1 MG PO (13:31)
[2020-07-14 13:36] LABS: URINE BILIRUBIN - DIPSTICK NEGATIVE (NEGATIVE); URINE BLOOD DIPSTICK TRACE-LYSED (NEGATIVE); URINE COLOR YELLOW; URINE GLUCOSE - DIPSTICK NEGATIVE (NEGATIVE); URINE KETONE NEGATIVE (NEGATIVE); URINE LEUK ESTERASE NEGATIVE (NEGATIVE); URINE NITRITE - DIPSTICK NEGATIVE (Negative); URINE PROTEIN - DIPSTICK NEGATIVE (NEG-TRACE); URINE SPECIFIC GRAVITY 1.025; URINE UROBILINOGEN - DIPSTICK 0.2 E.U./dL (0.2)
--- NOTE | 2020-07-14 13:36 | NUR ---
PT REFUSING TO HAVE HER NOSE SWABBED FOR COVID AT THIS TIME. PT STATES "YOU'RE NOT STICKING THAT DAMN THING UP MY NOSE. I JUST HAD ONE 2 DAYS AGO." PROVIDER AWARE AND STATES WE WILL RUN THE TEST VIA BLOOD.
--- NOTE | 2020-07-14 13:41 | NUR ---
PATIENT REFUSED SWAB SHE HAD JUST RECENTLY HAD IT DONE AT OTHER FACILITY AND WAS NEGATIVE. MOTHER AT BEDSIDE.
[2020-07-14 13:47] LABS: ALBUMIN 4.5 g/dL (3.2-5.0); ALKALINE PHOSPHATASE 80 u/l (38-126); ANION GAP 12 (6-22 (CALC)); BILIRUBIN, TOTAL 0.3 mg/dL (0.0-1.4); BUN 13 mg/dL (7-17); BUN/CREATININE RATIO 15 (12-20 (CALC)); CARBON DIOXIDE 26 mmol/l (22-30); CHLORIDE 104 mmol/l (95-108); CREATININE 0.9 mg/dL (0.5-1.0); GFR > 60 ML/MIN (>=60 (CALC)); GFR FOR AFR.AMER. > 60 ML/MIN (>=60 (CALC)); LIPASE 74 u/l (23-300); POTASSIUM 4.7 mmol/l (3.5-5.1); SGOT/AST 22 u/l (14-36); SODIUM 137 mmol/l (137-146); TOTAL PROTEIN 7.6 g/dL (6.3-8.2)
--- NOTE | 2020-07-14 13:50 | NUR ---
Provider at bedside to review plan of care. Patient calm. Resp easy.
--- NOTE | 2020-07-14 14:22 | NUR ---
Patient resting quietly,call leon in reach.
--- NOTE | 2020-07-14 15:48 | NUR ---
Reassessment of patient completed. No distress noted.
[2020-07-14 16:20] VITALS: BP 94/54
--- NOTE | 2020-07-14 16:20 | NUR ---
REPORT RECIEVED FROM MARGARET DEAN. PT ARRIVED TO [facility] ROOM 261 VIA PORTABLE. PT AMBULATED FROM WHEELCHAIR TO BED WITH NO DIFFICULTY. INTRODUCED SELF TO PT AND DSICUSSED POC. PT IS A/O X3. ASSESSMENT AND VITALS OBTAINED. BP 94/54, HR 89, O2 100% ON ROOM AIR. RESPIRATIONS ARE EVEN AND UNLABORED ON ROOM AIR. HEART RHYTHM NORMAL WITH TELE IN PLACE RUNNING SR PER ER MONITORING. BOWEL SOUNDS ARE ACTIVE IN ALL QUADRANTS, LAST REPORTED BM 07/14/2020. RADIAL AND PEDAL PULSES ARE STRONG WITH NORMAL CAPILLARY REFILL. #20G IN LAC FLUSHED, SITE APPEARS HEALTHY AND PATENT WITH NO SIGNS OF DISTRESS NOTED. PT REQUEST FOR NEW IV TO BE STARTED IN HAND DUE TO LAC IRRITATING. NEW IV TO BE STARTED. PT COMPLAINS OF 7/10 PAIN. PT STATES " IT COMES AND GOES." PT REPORTS PAIN UPON PALPATING. SKIN IS WARM DRY AND INTACT WITH NO BREAKDOWN NOTED. TRACE EDEMA NOTED TO BLE. PT ASK WHEN DINNER IS SERVED. WEB SERVICES MANAGER INFORMED PT THAT DINNER WOULD BE UP SOON.PT ASK IF VISITOR ARE ALLOW. WEB SERVICES MANAGER INFORMED PT THAT NO VISITORS ARE ALLOWED. PT VERBALIZED UNDERSTANDING. PT DENIES ANY NEEDS AT THIS TIME. ALL SAFETY PRECAUTIONS AR EIN PLACE WITH CALL LIGHT IN REACH. WILL CONTINUE TO MONITOR
--- NOTE | 2020-07-14 16:35 | NUR ---
REASSESSMENT OF BP RESUTLING IN 98/70, HR 80. PT TALKING IN PHONE WITH . NO SIGNS OF DISTRESS NOTED AT THIS TIME.ALL SAFTEY PRECAUTIONS ARE IN PLACE. WILL CONTINUE TO MONITOR
[2020-07-14 16:55] VITALS: BP 98/70
--- NOTE | 2020-07-14 18:07 | NUR ---
NEW #22G STARTED IN RFA FLUSHED, SITE APPEARS HELTHY AND PATENT. #20G IN RAC REMOVED WITH CATHATER STILL INTACT. PT TOELRATED WELL.
--- NOTE | 2020-07-14 19:02 | NUR ---
REPORT FROM LAURA NARANJO. ASSUME PT CARE AT THIS TIME.
--- NOTE | 2020-07-14 19:40 | NUR ---
PT NOTED SITTING UP AT SIDE OF BED, MOVING BODY IN ROCKING MOTION. ALERT AND ORIENTED X3. PT C/O SHARP MIDSTERNAL CP AND EPIGASTRIC PAIN 10/10. PT DENIES PAIN RADIATING, SOB, OR NAUSEA AT THIS TIME. PT STATES PAIN SAME WHEN SEEN IN ED. DISCUSSED POC. PT VERBALIZED UNDERSTANDING. THERAPY TECHNICIAN IN PLACE. IV SITE APPEARS HEALTHY, FLUSHED WELL. WILL NOTIFY HAT BLOCKING OPERATOR PHYSICIAN OF PT SYMPTOMS NOT IMPROVING SINCE ADMITTED TO FLOOR. NO CURRENT PRN PAIN MEDICATION ORDERED. ENCOURAGED REPOSITIONING AT THIS TIME. WILL CONTINUE TO MONITOR.
--- NOTE | 2020-07-14 19:44 | NUR ---
ORDERS RECEIVED FROM RETAIL BEAUTY SPECIALIST PHYSICIAN. WILL MEDICATE ONE MEDICATIONS PROFILED BY PHARMACY AND CONTINUE TO MONITOR.
[2020-07-14 20:00] VITALS: BP 106/64
--- NOTE | 2020-07-14 20:14 | NUR ---
PT MEDICATED FOR CP 04/25 AT THIS TIME. WILL CONTINUE TO MONITOR.
--- NOTE | 2020-07-14 21:00 | NUR ---
PT RESTING IN BED WITH EYES CLOSED. RESPIRATIONS EVEN AND UNLABORED. PT DROWSY BUT WAKES EASILY. PT STATES CP HAS IMPROVED. NO APPARENT DISTRESS NOTED. AWNING FRAME MAKER REMAINS IN PLACE. CALL LIGHT WITHIN REACH. WILL CONTINUE TO MONITOR.
[2020-07-15] VITALS: BP 139/88; BP 95/63
--- NOTE | 2020-07-15 00:02 | NUR ---
PT RESTING IN BED WITH EYES CLOSED. NO APPARENT DISTRESS NOTED. RESPIRATIONS EVEN AND UNLABORED. STOVE INSTALLER REMAINS IN PLACE. IV SITE APPEARS HEALTHY. VSS. CALL LIGHT WITHIN REACH. WILL CONTINUE TO MONITOR.
[2020-07-15 04:00] VITALS: BP 95/69
--- NOTE | 2020-07-15 04:06 | NUR ---
PT MEDICATED FOR CP PAIN 10/ WITH PRN APAP. NO APPARENT DISTRESS NOTED. RESPIRATIONS EVEN AND UNLABORED. CALL LIGHT WITHIN REACH. WILL CONTINUE TO MONITOR.
[2020-07-15 06:33] LABS: ALBUMIN 3.7 g/dL (3.2-5.0); ALKALINE PHOSPHATASE 73 u/l (38-126); ANION GAP 8 (6-22 (CALC)); BILIRUBIN, TOTAL 0.2 mg/dL (0.0-1.4); BUN 14 mg/dL (7-17); BUN/CREATININE RATIO 18 (12-20 (CALC)); CARBON DIOXIDE 25 mmol/l (22-30); CHLORIDE 104 mmol/l (95-108); CREATININE 0.8 mg/dL (0.5-1.0); GFR > 60 ML/MIN (>=60 (CALC)); GFR FOR AFR.AMER. > 60 ML/MIN (>=60 (CALC)); HEMATOCRIT 41.2 % (37.0-47.0); HEMOGLOBIN 12.8 g/dl (12.0-16.0); IMMATURE GRANULOCYTES 1.7 % (0.0-5.0); MEAN CELL VOLUME 71.2 fL CALC (80.0-100.0); MEAN CORPUSCULAR HGB 22.1 pG CALC (26.0-32.0); MEAN CORPUSCULAR HGB CONC 31.1 g/dL CAL (32.0-36.0); NEUT# 5.09 thou/uL (2.00-7.15); POTASSIUM 4.6 mmol/l (3.5-5.1); RED BLOOD COUNT 5.79 mill/uL (4.20-5.60); RED CELL DISTRI WIDTH 15.3 % (11.5-15.5); SGOT/AST 18 u/l (14-36); SODIUM 132 mmol/l (137-146); TOTAL PROTEIN 6.2 g/dL (6.3-8.2)
--- NOTE | 2020-07-15 07:00 | NUR ---
REPORT RECEIVED FROM MARCELLA WOOD.
--- NOTE | 2020-07-15 07:30 | NUR ---
PT RESTING IN SEMI FOWLERS POSITION,A&O X3;VS OBTAINED AND ASSESSMENT COMPLETED;PT REPORTS MIDSTERNAL CP RATING 10/10 ON THE PAIN SCALE AND REQUESTS PAIN MEDICATION, PT EDUCATED ON PAIN MEDICATION ADMINISTRATION SCHEDULE AND VERBALIZES UNDERSTANDING;RESPIRATIONS EVEN AND UNLABORED ON RA,CLEAR LUNG SOUNDS;ABDOMEN SOFT ON PALPATION AND ACTIVE IN ALL 4 QUADRANTS;STRONG PEDAL PULSES;SKIN INTACT;TELE MONITORING IN PLACE;#22G TO RFA FLUSHED AND PATENT,SITE APPEARS HEALTHY;PT DENIES ANY ADDITIONAL NEEDS AND IS ENCOURAGED TO CALL FOR ASSISTANCE IF NEEDED;FALL PRECAUTIONS IN PLACE WITH BED IN THE LOWEST POSITION AND CALL LIGHT IN REACH;WILL CONTINUE TO MONITOR
[2020-07-15 07:33] VITALS: BP 112/73
--- NOTE | 2020-07-15 08:21 | NUR ---
AT BEDSIDE DISCUSSING POC.
[2020-07-15] MEDS ORDERED: MEDDOSEPAK PO (10:46)
--- NOTE | 2020-07-15 11:39 | NUR ---
ALL DISCHARGE INSTRUCTIONS PROVIDED AT THIS TIME;PT ENCOURAGED TO F/U WITH PCP WITHIN THE NEXT WEEK, ABSTAIN FROM DRUG ABUSE AND TAKE MEDROL ADRIENNE PRESCRIBED. RX FOR MEDROL ADRIENNE PROVIDED AND PT VERBALIZES UNDERSTANDING AND DENIES ANY ADDITIONAL QUESTIONS OR NEEDS;IV SITE REMOVED WITH CATHETER INTACT AND TELE MONITORING D/C;WHEELCHAIR TO BE PROVIDED FOR D/C HOME;FAMILY TO TRANSPORT PT HOME;WILL CONTINUE TO MONITOR
--- NOTE | 2020-07-15 11:55 | NUR ---
Discharge instructions given. Patient verbalizes understanding of same. Discharged in stable condition via Wheelchair to Home with family. All belongings sent with pt. PT TRANSPORTED TO [facility] IN STABLE CONDITION VIA WHEELCHAIR FOR D/C HOME ACCOMPANIED BY MARIE RDZ;ALL BELONGINGS LEFT WITH PT. FAMILY TO TRANSPORT PT HOME.
== END 2020-07-15 11:55 | disposition home or self-care (01) ==
LOC: ED 13:09 → ED-I 15:14 → ED 15:29 → MS2 15:30
PROVIDERS: ADMIT Internal Medicine; ATTEND Internal Medicine
DX: R07.1 Chest pain on breathing (principal); F14.10 Cocaine abuse, uncomplicated; F13.10 Sedative, hypnotic or anxiolytic abuse, uncomplicated; F12.10 Cannabis abuse, uncomplicated; J44.9 Chronic obstructive pulmonary disease, unspecified; F41.9 Anxiety disorder, unspecified; F17.200 Nicotine dependence, unspecified, uncomplicated; Z88.6 Allergy status to analgesic agent; Z20.828 Contact with and (suspected) exposure to other viral communicable diseases
CPT/HCPCS: G0378; J2060; Q9967

== ENCOUNTER 2020-08-27 13:43 | Emergency (ER) | payer OTHER ==
[~2020-08-27] VITALS: Ht 162.6 cm; Wt 89.5 kg
[~2020-08-27 13:43] MED LIST changes: +ATIVAN1 MG PO; -SYMBICORT 80-4.5MCG
[2020-08-27] MEDS ORDERED: ZPAK PO (17:09)
[2020-08-27 17:53] VITALS: BP 106/70
== END 2020-08-27 18:13 | disposition home or self-care (01) ==
LOC: ED 13:43
DX: J02.0 Streptococcal pharyngitis (principal); J45.909 Unspecified asthma, uncomplicated; Z20.822 Contact with and (suspected) exposure to COVID-19; R06.02 Shortness of breath; J45.40 Moderate persistent asthma, uncomplicated; I10 Essential (primary) hypertension

== ENCOUNTER 2020-09-16 18:09 | Emergency (ER) | payer OTHER ==
[~2020-09-16] VITALS: Ht 162.6 cm; Wt 81.8 kg
[2020-09-16] MEDS ORDERED: FLEXERIL5 M1 PO (18:35)
[2020-09-16] MEDS ORDERED: MEDDOSEPAK PO (18:35)
[2020-09-16] MEDS ORDERED: ADVAIR DISK2 IN (18:39)
[2020-09-16] MEDS ORDERED: LORAZEPAM0.5 MG PO (18:39)
[2020-09-16] MEDS ORDERED: MONTELUKAST SOD10 MG PO (18:39)
[2020-09-16 18:55] VITALS: BP 124/83
== END 2020-09-16 18:55 | disposition home or self-care (01) ==
LOC: ED 18:09
DX: G89.29 Other chronic pain (principal); M54.5 Low back pain; J45.909 Unspecified asthma, uncomplicated; T14.90XS Injury, unspecified, sequela; V89.2XXS Person injured in unspecified motor-vehicle accident, traffic, sequela; Z88.6 Allergy status to analgesic agent

== ENCOUNTER 2021-01-06 10:03 | Emergency (ER) | payer OTHER ==
[~2021-01-06] VITALS: Ht 162.6 cm; Wt 90.0 kg
[~2021-01-06 10:03] MED LIST changes: +ADVAIR DISK2 IN; +FLEXERIL5 M1 PO; +LORAZEPAM0.5 MG PO
[2021-01-06 11:02] LABS: HEMATOCRIT 37.1 % (37.0-47.0); HEMOGLOBIN 11.3 g/dl (12.0-16.0); IMMATURE GRANULOCYTES 0.2 % (0.0-5.0); MEAN CELL VOLUME 72.7 fL CALC (80.0-100.0); MEAN CORPUSCULAR HGB 22.2 pG CALC (26.0-32.0); MEAN CORPUSCULAR HGB CONC 30.5 g/dL CAL (32.0-36.0); NEUT# 2.9 thou/uL (2.00-7.15); RED BLOOD COUNT 5.1 mill/uL (4.20-5.60); RED CELL DISTRI WIDTH 14.5 % (11.5-15.5)
[2021-01-06 11:18] LABS: ALKALINE PHOSPHATASE 71 u/l (38-126); ANION GAP 9 (6-22 (CALC)); BUN 11 mg/dL (7-17); BUN/CREATININE RATIO 15 (12-20 (CALC)); CARBON DIOXIDE 29 mmol/l (22-30); CHLORIDE 103 mmol/l (95-108); CREATININE 0.7 mg/dL (0.5-1.0); GFR > 60 ML/MIN (>=60 (CALC)); GFR FOR AFR.AMER. > 60 ML/MIN (>=60 (CALC)); POTASSIUM 4.1 mmol/l (3.5-5.1); SGOT/AST 28 u/l (14-36); SODIUM 137 mmol/l (137-146); TOTAL PROTEIN 7.3 g/dL (6.3-8.2)
[2021-01-06 11:24] LABS: BILIRUBIN, TOTAL 0.1 mg/dL (0.0-1.4)
[2021-01-06] MEDS ORDERED: DOXYCYC MONO100 M2 PO (12:30)
[2021-01-06] MEDS ORDERED: ALL DAY10 MG PO (12:30)
[2021-01-06] MEDS ORDERED: PREDNISONE50 MG PO (12:30)
[2021-01-06] MEDS ORDERED: PULSE OXIMETER1 MI1 TOP (12:30)
[2021-01-06 13:21] VITALS: BP 116/79
== END 2021-01-06 13:21 | disposition home or self-care (01) ==
LOC: ED 10:03
PROVIDERS: Family Medicine
DX: J45.901 Unspecified asthma with (acute) exacerbation (principal); F17.210 Nicotine dependence, cigarettes, uncomplicated; Z20.822 Contact with and (suspected) exposure to COVID-19

== ENCOUNTER 2021-02-20 20:44 | Emergency (ER) | payer OTHER ==
[~2021-02-20] VITALS: Ht 162.6 cm; Wt 90.0 kg
[~2021-02-20 20:44] MED LIST changes: +ALL DAY10 MG PO; +PULSE OXIMETER1 MI1 TOP
[2021-02-20 21:42] LABS: HEMOGLOBIN 11.7 g/dl (12.0-16.0); IMMATURE GRANULOCYTES 0.2 % (0.0-5.0); MEAN CORPUSCULAR HGB 22.5 pG CALC (26.0-32.0); MEAN CORPUSCULAR HGB CONC 31.6 g/dL CAL (32.0-36.0); NEUT# 2.99 thou/uL (2.00-7.15); RED BLOOD COUNT 5.21 mill/uL (4.20-5.60); RED CELL DISTRI WIDTH 14.8 % (11.5-15.5)
[2021-02-20 21:57] LABS: ALBUMIN 3.9 g/dL (3.2-5.0); ALKALINE PHOSPHATASE 74 u/l (38-126); ANION GAP 9 (6-22 (CALC)); BUN 12 mg/dL (7-17); BUN/CREATININE RATIO 17 (12-20 (CALC)); CARBON DIOXIDE 28 mmol/l (22-30); CHLORIDE 103 mmol/l (95-108); CREATININE 0.7 mg/dL (0.5-1.0); GFR > 60 ML/MIN (>=60 (CALC)); GFR FOR AFR.AMER. > 60 ML/MIN (>=60 (CALC)); SGOT/AST 25 u/l (14-36); SODIUM 136 mmol/l (137-146)
[2021-02-20 21:59] LABS: BILIRUBIN, TOTAL 0.2 mg/dL (0.0-1.4)
[2021-02-21 01:32] LABS: URINE BILIRUBIN - DIPSTICK NEGATIVE (NEGATIVE); URINE BLOOD DIPSTICK NEGATIVE (NEGATIVE); URINE COLOR YELLOW; URINE GLUCOSE - DIPSTICK NEGATIVE (NEGATIVE); URINE KETONE NEGATIVE (NEGATIVE); URINE PH 6.5 (4.5-8.0); URINE PROTEIN - DIPSTICK NEGATIVE (NEG-TRACE); URINE UROBILINOGEN - DIPSTICK 0.2 E.U./dL (0.2)
[2021-02-21 01:33] LABS: URINE LEUK ESTERASE NEGATIVE (NEGATIVE); URINE NITRITE - DIPSTICK POSITIVE (Negative)
[2021-02-21 01:35] LABS: URINE BACTERIA MANY hpf; URINE EPITHELIAL CELLS MODERATE EPI/hpf (0-FEW)
[2021-02-21 06:14] VITALS: BP 98/56
== END 2021-02-21 06:20 | disposition home or self-care (01) ==
LOC: ED 20:44
PROVIDERS: Emergency Medicine
DX: R07.9 Chest pain, unspecified (principal); R82.71 Bacteriuria; J45.909 Unspecified asthma, uncomplicated; F17.200 Nicotine dependence, unspecified, uncomplicated; Z99.81 Dependence on supplemental oxygen

== ENCOUNTER 2021-04-11 16:51 | Emergency (ER) | payer OTHER ==
[~2021-04-11] VITALS: Ht 162.6 cm; Wt 88.0 kg
[2021-04-11] MEDS ORDERED: DECADRON6 MG PO (19:53)
[2021-04-11] MEDS ORDERED: ZITHROMAX500 MG PO (19:53)
[2021-04-11 20:00] VITALS: BP 116/62
--- NOTE | 2021-04-13 10:17 | NUR ---
REVIEWED PTS CHART AND MAB REFERRAL, PT IS NOT A CANDIDATE.
== END 2021-04-11 20:05 | disposition home or self-care (01) ==
LOC: ED 16:51
DX: U07.1 COVID-19 (principal); J45.909 Unspecified asthma, uncomplicated; F17.200 Nicotine dependence, unspecified, uncomplicated; Z99.81 Dependence on supplemental oxygen
CPT/HCPCS: J7626

== ENCOUNTER 2021-04-15 09:45 | Emergency (ER) | payer OTHER ==
[~2021-04-15 09:45] MED LIST changes: +DECADRON6 MG PO; +ZITHROMAX500 MG PO
== END 2021-04-15 10:45 | disposition left against medical advice (07) | DRG 951 ==
LOC: ED 09:45 → LWOBS 10:44
DX: Z53.21 Procedure and treatment not carried out due to patient leaving prior to being seen by health care provider (principal)

== ENCOUNTER 2021-04-18 17:53 | Emergency (ER) | payer OTHER ==
[~2021-04-18] VITALS: Ht 162.6 cm; Wt 84.0 kg
[2021-04-18] MEDS ORDERED: NEBULIZER KIT/TUBING IN (20:07)
[2021-04-18] MEDS ORDERED: DECADRON6 MG PO (20:07)
[2021-04-18 20:30] VITALS: BP 120/76
== END 2021-04-18 20:30 | disposition home or self-care (01) ==
LOC: ED 17:53
DX: U07.1 COVID-19 (principal); J45.909 Unspecified asthma, uncomplicated; Z99.81 Dependence on supplemental oxygen

== ENCOUNTER 2021-06-18 11:32 | Observation (INO) | payer OTHER ==
[~2021-06-18] VITALS: Ht 162.6 cm; Wt 95.0 kg
[~2021-06-18 11:32] MED LIST changes: +NEBULIZER KIT/TUBING IN
--- NOTE | 2021-06-18 11:35 | NUR ---
PATIENT TO ROOM 14 BEDSIDE TRIAGE COMPLETED
[2021-06-18 12:08] LABS: HEMATOCRIT 37.8 % (37.0-47.0); HEMOGLOBIN 11.6 g/dl (12.0-16.0); IMMATURE GRANULOCYTES 0.7 % (0.0-5.0); MEAN CELL VOLUME 73.3 fL CALC (80.0-100.0); MEAN CORPUSCULAR HGB 22.5 pG CALC (26.0-32.0); MEAN CORPUSCULAR HGB CONC 30.7 g/dL CAL (32.0-36.0); NEUT# 5.15 thou/uL (2.00-7.15); RED BLOOD COUNT 5.16 mill/uL (4.20-5.60); RED CELL DISTRI WIDTH 15.6 % (11.5-15.5)
[2021-06-18 12:13] LABS: ALKALINE PHOSPHATASE 67 u/l (38-126); ANION GAP 12 (6-22 (CALC)); BUN 16 mg/dL (7-17); BUN/CREATININE RATIO 20 (12-20 (CALC)); CARBON DIOXIDE 23 mmol/l (22-30); CHLORIDE 107 mmol/l (95-108); CREATININE 0.8 mg/dL (0.5-1.0); GFR > 60 ML/MIN (>=60 (CALC)); GFR FOR AFR.AMER. > 60 ML/MIN (>=60 (CALC)); POTASSIUM 4.5 mmol/l (3.5-5.1); SGOT/AST 23 u/l (14-36); SODIUM 137 mmol/l (137-146); TOTAL PROTEIN 6.8 g/dL (6.3-8.2)
[2021-06-18 12:14] LABS: BILIRUBIN, TOTAL 0.4 mg/dL (0.0-1.4)
--- NOTE | 2021-06-18 12:20 | NUR ---
PT ARRIVED BACK FROM CT AFTER NEURO AND CTA, WITH THIS RN, HOOKED UP TO CONTINUOUS CARDIAC MONITORING AND EDUCATED ON NEED FOR UA, PT DOES NOT HAVE TO GO RIGHT NOW
--- NOTE | 2021-06-18 13:09 | NUR ---
PT RESTING NO COMP-LAINTS AT THIS TIME
[2021-06-18 13:33] LABS: PROTHROMBIN TIME 10.1 SECONDS (9.0-12.5)
[2021-06-18 14:33] LABS: URINE BILIRUBIN - DIPSTICK NEGATIVE (NEGATIVE); URINE BLOOD DIPSTICK NEGATIVE (NEGATIVE); URINE COLOR YELLOW; URINE GLUCOSE - DIPSTICK NEGATIVE (NEGATIVE); URINE KETONE NEGATIVE (NEGATIVE); URINE LEUK ESTERASE NEGATIVE (NEGATIVE); URINE PROTEIN - DIPSTICK NEGATIVE (NEG-TRACE); URINE UROBILINOGEN - DIPSTICK 0.2 E.U./dL (0.2)
[2021-06-18 14:34] LABS: URINE NITRITE - DIPSTICK NEGATIVE (Negative)
--- NOTE | 2021-06-18 14:50 | NUR ---
GAVE REPORT TO BRIAN ROBLES, PT TRANSPORTED TO FLOOR VIA WHEELCHAIR, ALL BELONGINGS WITH PT
[2021-06-18 14:59] LABS: C-REACTIVE PROTEIN < 0.5 mg/dL (0-0.9); MAGNESIUM 1.8 mg/dL (1.6-2.3)
[2021-06-18 15:15] VITALS: BP 119/69
--- NOTE | 2021-06-18 15:15 | NUR ---
RECEIVED PATIENT AT THIS TIME FROM ED VIA WHEELCHAIR. PATIENT ALERT AND ORIENTED AT THIS TIME. MRI SPECIAL PROCEDURES TECHNOLOGIST DONE NEURO CHECKS PREFORMED AT THIS TIME. NEURO CHECKS WERE NEGATIVE AN NO DEFICITS NOTED. GRASP WERE EQUAL AND STRONG PATIENT DENIES ANY NUMBNESS OR TINGLING FEELING ANYWHERE ON BODY AT THIS TIME. SPEECH IS CLEAR PATIENT DENIES ANY DIZZINESS. LUNG TERRAZAS ASSESSED AND ARE CLEAR. THERE IS NO NOTED EDEMA AT THIS TIME. PUPILS ARE EQUAL AND REACT TO LIGHT. PATIENT DENIES ANY PAIN AT THIS TIME. TELE MONITOR ON AND READING S/R AT HR OF 83. PATIENT GIVEN ROOM AND SAFETY ORIENTATION AT THIS TIME. PATIENT DENIES ANY HEADACHE AT THIS TIME WELL. SIDERAILS ARE UP X 2 CALL LIGHT WITHIN REACH AND SCD'S ARE ON AND IN PLACE. WILL CONTINUE TO MONITOR.
--- NOTE | 2021-06-18 16:34 | NUR ---
PATIENT LAYING IN BED NEURO CHECKS DONE AT THIS TIME AND REMAIN UNCHANGED. PATIENT ALERT AND ORIENTED X 3 ANSWERS QUESTIONS APPROPIATELY. PATIENT REY ANY PAIN AT THIS TIME MOVES ALL EXTERMITIES WELL. SIDERAILS ARE UP CALL LIGHT WITHIN REACH. PATIENT STATED "I HAVE CZECH FOOD COMING TO ME TONIGHT". TELE MONITOR ON AND BEING MONITORED BY ED.
[2021-06-18 19:00] VITALS: BP 109/68
--- NOTE | 2021-06-18 20:01 | NUR ---
PHYSICAL ASSESMENT COMPLETE. PT CURRENTLY DENIES PAIN OR DISCOMFORT. SCHEDULED MEDICATIONS AND PRN MEDICATION ADMINISTERED, SEE E-MAR. PT DENIES ANY NEEDS AT THIS TIME. PLAN OF CARE REVIEWED, PT DENIES QUESTIONS, VERBALIZES UNDERSTANDING. ITEMS WITHIN REACH, BED LOCKED IN LOW POSITION W/ BEDRAILS UP X2. CALL STOVER WITHIN REACH, AGREES TO CALL PRN.
--- NOTE | 2021-06-18 20:29 | NUR ---
PHYSICAL ASSESMENT COMPLETE. PT CURRENTLY DENIES PAIN OR DISCOMFORT. SCHEDULED MEDICATIONS AND PRN MEDICATION ADMINISTERED, SEE E-MAR. PT DENIES ANY NEEDS AT THIS TIME. PT CONFUSED AND ONLY ALERT TO SELF. PT STITTER IS BEDSIDE. ITEMS WITHIN REACH, BED LOCKED IN LOW POSITION W/ BEDRAILS UP X2. CALL STOVER WITHIN REACH, AGREES TO CALL PRN.
[2021-06-19] VITALS: BP 120/73
--- NOTE | 2021-06-19 00:45 | NUR ---
PT LAYING IN BED WITH EYES CLOSED, APPEARS TO BE SLEEPING, APPEARS COMFORTABLE AND IN NO DISTRESS. RESPIRATIONS REGULAR AND UNLABORED. ITEMS REMAIN WITHIN REACH, CALL STOVER REMAINS WITHIN REACH. BED REMAINS LOCKED AND IN LOW POSITION WITH BEDRAILS UP X2. WILL CONTINUE TO MONITOR.
[2021-06-19 04:00] VITALS: BP 104/54
--- NOTE | 2021-06-19 04:00 | NUR ---
PT RESTING IN BED, NO SIGNS OF DISTRESS NOTED, RESP EVEN AND UNLABORED. PT VOICES NO NEEDS OR COMPLAINTS AT THIS TIME. CALL LIGHT IN REACH, CONTINUE TO MONITOR.
[2021-06-19 05:51] LABS: HEMATOCRIT 35.2 % (37.0-47.0); HEMOGLOBIN 11.3 g/dl (12.0-16.0); MEAN CELL VOLUME 71.5 fL CALC (80.0-100.0); MEAN CORPUSCULAR HGB CONC 32.1 g/dL CAL (32.0-36.0); RED BLOOD COUNT 4.92 mill/uL (4.20-5.60); RED CELL DISTRI WIDTH 15.3 % (11.5-15.5)
[2021-06-19 06:03] LABS: ANION GAP 12 (6-22 (CALC)); BUN 15 mg/dL (7-17); BUN/CREATININE RATIO 18 (12-20 (CALC)); CALCULATED LDLCHOLESTEROL 77 mg/dL (62-129 (CALC)); CARBON DIOXIDE 23 mmol/l (22-30); CHLORIDE 106 mmol/l (95-108); CHOLESTEROL HDL RATIO 3.4 (<4.4 (CALC)); CREATININE 0.8 mg/dL (0.5-1.0); GFR > 60 ML/MIN (>=60 (CALC)); GFR FOR AFR.AMER. > 60 ML/MIN (>=60 (CALC)); HDL CHOLESTEROL 42 mg/dL (>=40); MAGNESIUM 1.8 mg/dL (1.6-2.3); POTASSIUM 4.5 mmol/l (3.5-5.1); SODIUM 136 mmol/l (137-146); TOTAL CHOLESTEROL 140 mg/dl (0-199); TOTAL TRIGLYCERIDES 109 mg/dl (30-149); VLDL CHOLESTROL 22 mg/dl (1-41 (CALC))
[2021-06-19 07:15] VITALS: BP 110/62
--- NOTE | 2021-06-19 07:15 | NUR ---
PATIENT LAYING IN BED AT THIS TIME ALERT AND ORIENTED X 3. PATIENT DENIES ANY PAIN AND OR NEEDS CURRENTLY. PATIENT DID STATE SHE WOULD LIKE TO HAVE IV SITE REPOSITIONED DUE TO IT BEING IN AN UNCOMFORTABLE SPOT. THIS NURSE ADVISED PATIENT IT WILL BE MOVE LATER IN AM. HEEL SCOURER DONE AT THIS TIME. PATIENT DENIES TINGLING OR NUMBNESS AND MOVES ALL EXTREMITIES WITHOUT DIFFICULT. NEURO CHECKS REMAIN UNCHANGED AT THIS TIME. SIDERAILS ARE UP CALL LIGHT IS WITHIN REACH.
--- NOTE | 2021-06-19 09:22 | NUR ---
PATIENT TAKEN DOWN TO MRI AT THIS TIME ED CALLED ([facility]) AND INFORMED PATIENT WOULD BE OFF TELE.
[2021-06-19] MEDS ORDERED: ASPIRIN 81 LOW81 MG PO (10:05)
--- NOTE | 2021-06-19 10:52 | NUR ---
S: Patient reported feeling better on this date but still had 8/10 pain in L foot feeling like pins and needles. O: Patient performed: 2 x 10 each seated hip flexion 2 x 10 each seated knee extension 2 x 10 each seated dorsiflexion 3 x 5 standing back extension with both hands on low back Patient required rest break after second set due to being "winded". Patient reported having a decrease from 8/10 pain to 2/10 pain in L foot following this activity. Ambulation x 40 feet with CGA x 1 for safety Patient demonstrated decreased propulsion on LLE due to fear of return of pain. Patient started ambulation with 2/10 pain in L foot and finished with 0/10 pain in L foot. A: Patient requires frequent rest breaks as she becomes fatigued quickly due to decreased endurance and lung function from asthma. Patient had significant decrease in pain following standing repeated movement of low back extension in relation to discogenic pathology. P: Patient would benefit from continued interventions to improve gait pattern, balance and to decrease pain. Patient's Am Pac score on this date was 19 which would be a recommendation for outpatient PT. I agree with this recommendation as it would increase function with ADLs and decrease pain.
--- NOTE | 2021-06-19 10:58 | NUR ---
PATIENT D/C'D AT THIS TIME. PATIENT VERBALIZES D/C INSTRUCTIONS. PATIENT EDUCATED ON GOING OT OUTPATIENT MRI FOR FOLLOW UP. PATIENT VERABLIZES UNDERSTANDING OF ALL INFORMATION GIVEN AT THIS TIME. TELE MONITOR REMOVED AT THIS TIME AND ED CALLED AND NOTIFIED ([facility]). IV REMOVED AND TIP INTACT.
== END 2021-06-19 11:33 | disposition home or self-care (01) ==
LOC: ED 11:32 → ED-I 14:00 → ED 14:10 → MS2 14:11
PROVIDERS: Emergency Medicine; Nurse Practitioner; ADMIT Internal Medicine; ATTEND Internal Medicine
DX: G43.909 Migraine, unspecified, not intractable, without status migrainosus (principal); M94.0 Chondrocostal junction syndrome [Tietze]; F19.10 Other psychoactive substance abuse, uncomplicated; F12.10 Cannabis abuse, uncomplicated; J44.9 Chronic obstructive pulmonary disease, unspecified; F41.9 Anxiety disorder, unspecified; K21.9 Gastro-esophageal reflux disease without esophagitis; M54.2 Cervicalgia; M54.50 Low back pain, unspecified; G89.29 Other chronic pain; F40.240 Claustrophobia; F17.200 Nicotine dependence, unspecified, uncomplicated; Z20.822 Contact with and (suspected) exposure to COVID-19
CPT/HCPCS: G0378; J1650; Q9967

== ENCOUNTER 2021-10-10 07:29 | Emergency (ER) | payer OTHER ==
[~2021-10-10] VITALS: Ht 162.6 cm; Wt 101.4 kg
[~2021-10-10 07:29] MED LIST changes: +ASPIRIN 81 LOW81 MG PO
[2021-10-10] MEDS ORDERED: ULTRAM50 M1 PO (08:56)
[2021-10-10] MEDS ORDERED: ANUCORT-HC25 MG RE (08:56)
[2021-10-10] MEDS ORDERED: LIDOCAINE HCL VIS2 % TP (08:56)
[2021-10-10 08:58] VITALS: BP 116/63
== END 2021-10-10 09:13 | disposition home or self-care (01) ==
LOC: ED 07:29
DX: K64.9 Unspecified hemorrhoids (principal); J45.909 Unspecified asthma, uncomplicated; F17.200 Nicotine dependence, unspecified, uncomplicated; Z99.81 Dependence on supplemental oxygen

== ENCOUNTER 2021-12-13 13:22 | Observation (INO) | payer OTHER ==
[~2021-12-13] VITALS: Ht 162.6 cm; Wt 95.0 kg
[2021-12-13] VITALS (14 sets, daily range): BP systolic 102–144; BP diastolic 63–91
[~2021-12-13 13:22] MED LIST changes: +ANUCORT-HC25 MG RE; +LIDOCAINE HCL VIS2 % TP
--- NOTE | 2021-12-13 13:38 | NUR ---
PATIENT TO ROOM VIA EMS FOR SOB. EMS GAVE DUONEB AND DEXTAMETHASONE IV
[2021-12-13 14:20] LABS: HEMATOCRIT 40.6 % (37.0-47.0); HEMOGLOBIN 12.3 g/dl (12.0-16.0); IMMATURE GRANULOCYTES 0.3 % (0.0-5.0); MEAN CELL VOLUME 73.3 fL CALC (80.0-100.0); MEAN CORPUSCULAR HGB 22.2 pG CALC (26.0-32.0); MEAN CORPUSCULAR HGB CONC 30.3 g/dL CAL (32.0-36.0); NEUT# 2.56 thou/uL (2.00-7.15); RED BLOOD COUNT 5.54 mill/uL (4.20-5.60); RED CELL DISTRI WIDTH 16.3 % (11.5-15.5)
--- NOTE | 2021-12-13 14:20 | NUR ---
PATIENT CONTINUES ON BREATHING TREATMENT
[2021-12-13 14:23] LABS: ALKALINE PHOSPHATASE 98 u/l (38-126); ANION GAP 8 (6-22 (CALC)); BUN 8 mg/dL (7-17); BUN/CREATININE RATIO 10 (12-20 (CALC)); CARBON DIOXIDE 24 mmol/l (22-30); CHLORIDE 109 mmol/l (95-108); CREATININE 0.8 mg/dL (0.5-1.0); GFR > 60 ML/MIN (>=60 (CALC)); GFR FOR AFR.AMER. > 60 ML/MIN (>=60 (CALC)); POTASSIUM 3.8 mmol/l (3.5-5.1); SGOT/AST 22 u/l (14-36); SODIUM 136 mmol/l (137-146)
--- NOTE | 2021-12-13 15:00 | NUR ---
PATIENT REPORTS FEELING BETTER AT THIS TIME, LIGHTS DIMMED AND WARM BLANKET PROVIDED PER REQUEST. IV MEDS INFUSING WELL
--- NOTE | 2021-12-13 15:35 | NUR ---
PATIENT PROVIDED WITH MEAL PER REQUEST.
--- NOTE | 2021-12-13 15:39 | NUR ---
PATIENT WAITING ON ROOM ASSIGNMENT. WILL STAY IN ED UNTIL CHANGE OF SHIFT
--- NOTE | 2021-12-13 15:50 | NUR ---
DAUGHTER AT BEDSIDE TO LEAVE PATIENT BELONGINGS. [facility] NUMBER [phone]
--- NOTE | 2021-12-13 16:30 | NUR ---
PATIENT RESTING ON STRETCHER WITH EYES CLOSED, RESPIRATIONS EVEN AND UNLABORED. CALL LIGHT WITHIN REACH. WILL CONTINUE TO MONITOR.
--- NOTE | 2021-12-13 17:30 | NUR ---
LUNCH TRAY GIVEN TO PATIENT.
--- NOTE | 2021-12-13 18:29 | NUR ---
PATIENT CONTINUES TO WAIT FOR ROOM ASSIGNMENT
--- NOTE | 2021-12-13 18:58 | NUR ---
ATTEMPT MADE TO CALL REPORT, NURSE WILL CALL BACK
--- NOTE | 2021-12-13 19:01 | NUR ---
REPORT GIVEN TO BEE RN
--- NOTE | 2021-12-13 19:16 | NUR ---
REPORT CALLED TO MARCELLA LIZAMA.
--- NOTE | 2021-12-13 19:49 | NUR ---
TELEBOX 2 IN USE. PT AGREES WITH PLAN FOR ADMIT
--- NOTE | 2021-12-13 19:55 | NUR ---
Admission Note Report Given to: MARCELLA LIZAMA Transported by: Wheelchair X Stretcher Transported with: X Nurse Transporter X Patent IV X O2 X Lead Cytogenetic Technologist Location: X ICU MS2
--- NOTE | 2021-12-13 20:00 | NUR ---
PT ARRIVED TO MS2 VIA STRETCHER ACCOMPANIED BY ER NURSE, PT ALERT AND ORIENTED X3, AMBULATED WITH STEADY GAIT, ORIENTED PT TO ROOM AND CALL LIGHT, PT AMULATED TO BATHROOM NOTED SOB ON EXERTION, 02 2L NC, SATS 97%. IV RAC SL FLUSHED WELL. DISCUSSED POC, VERBALIZED UNDERSTANDING. ADMISSION ASSESSMENT COMPLETED, CALL LIGHT IN REACH,CONTINUE TO MONITOR.
[2021-12-14 00:22] VITALS: BP 110/64
--- NOTE | 2021-12-14 00:40 | NUR ---
PT C/O KYA HERMOSILLO MD NOTIFIED AND ORDER OBTAINED, PT MEDICATED PER MAR, CALL LIGHT IN REACH,CONTINUE TO MONITOR.
--- NOTE | 2021-12-14 04:00 | NUR ---
PT RESTING IN BED, NO SIGNS OF DISTRESS NOTED, RESP EVEN AND UNLABORED. CALL LIGHT IN REACH,CONTINUE TO MONITOR.
[2021-12-14 04:53] VITALS: BP 115/68
[2021-12-14 05:10] LABS: HEMATOCRIT 37.5 % (37.0-47.0); HEMOGLOBIN 11.9 g/dl (12.0-16.0); MEAN CELL VOLUME 70.6 fL CALC (80.0-100.0); MEAN CORPUSCULAR HGB 22.4 pG CALC (26.0-32.0); MEAN CORPUSCULAR HGB CONC 31.7 g/dL CAL (32.0-36.0); RED BLOOD COUNT 5.31 mill/uL (4.20-5.60); RED CELL DISTRI WIDTH 15.1 % (11.5-15.5)
[2021-12-14 05:30] LABS: ANION GAP 12 (6-22 (CALC)); BUN 10 mg/dL (7-17); BUN/CREATININE RATIO 15 (12-20 (CALC)); CARBON DIOXIDE 21 mmol/l (22-30); CHLORIDE 107 mmol/l (95-108); CREATININE 0.7 mg/dL (0.5-1.0); GFR > 60 ML/MIN (>=60 (CALC)); GFR FOR AFR.AMER. > 60 ML/MIN (>=60 (CALC)); MAGNESIUM 2.1 mg/dL (1.6-2.3); SODIUM 135 mmol/l (137-146)
[2021-12-14 05:44] LABS: POTASSIUM 4.9 mmol/l (3.5-5.1)
--- NOTE | 2021-12-14 07:06 | NUR ---
RECIEVED REPORT FROM ALDA NARANJO.
[2021-12-14 08:00] VITALS: BP 115/78
--- NOTE | 2021-12-14 08:00 | NUR ---
PT RESTING IN FOWLERS POSITION . A/OX3 ASSESSMENT AND VITAL SIGNS COMPLETED. HEART RHYTHM NORMAL TELE IN PLACE. LUNG SOUNDS UNLABORED WITH WHEEZING. BOWEL SOUNDS ACTIVE. IV PATENT/FLUSHED. PT C/O CHEST PAIN DUE TO COPD. DR WILL BE ADVISED UPON HIS ROUNDS. PT DENIES ADDITONAL NEEDS AT THE MOMENT. ALL SAFETY PRECAUTIONS IN PLACE WITH CALL LIGHT IN REACH.
[2021-12-14 08:15] VITALS: BP 115/78
[2021-12-14 10:46] VITALS: BP 120/66
[2021-12-14] MEDS ORDERED: ALBUTEROL1.25 MG/3 NEB (11:15)
[2021-12-14] MEDS ORDERED: PROAIR HFA108 MCG/AC PO (11:16)
[2021-12-14] MEDS ORDERED: ALL DAY ALLG10 MG PO (11:17)
[2021-12-14] MEDS ORDERED: FLEXERIL5 M1 PO (11:18)
[2021-12-14] MEDS ORDERED: GABAPENTIN600 MG PO (11:19)
[2021-12-14] MEDS ORDERED: FLONASE AL50 MCG/ACT NAB (11:21)
[2021-12-14] MEDS ORDERED: ANTACID (11:28)
[2021-12-14] MEDS ORDERED: MEDDOSEPAK PO (11:46)
[2021-12-14] MEDS ORDERED: TESSALON PERLE100 MG PO (11:47)
--- NOTE | 2021-12-14 12:06 | NUR ---
PT RESTING IN SEMI FOWLERS POSITION . PT TO BE DISCHARGED SOON . PT DENIES ADDITIONAL NEEDS AT THE MOMENT . ALL SAFETY PRECAUTIONS IN PLACE WITH CALLLIGHT IN REACH.
--- NOTE | 2021-12-14 13:25 | NUR ---
PT EDUCATED ON DC INSTRUCTIONS PT VERBALLY STATED UNDERSTANDING. TELE REMOVED ER INFORMED. IV REMOVED WITH CATH INTACT.
--- NOTE | 2021-12-14 13:30 | NUR ---
Discharge instructions given. Patient verbalizes understanding of same. Discharged in stable condition via Wheelchair to Home with family. All belongings sent with pt.
--- NOTE | 2021-12-17 09:21 | NUR ---
Pneumonia post discharge follow up call completed 12/18/21. Pt. states sshe is doing well. She has had no fever, chills, or SOB since discharge. Pt. states she is still coughing a lot, ribs are sore from strain. Pt. is taking meds prescribed at discharge but states the cough suppressat does not seem to be working well. Suggested to patient that se contact her PCP to see if she could get a different cough med. Pt. has follow up appt scheduled in 2 wks. No questions or concerns at this time.
== END 2021-12-14 13:30 | disposition home or self-care (01) ==
LOC: ED 13:22 → ED-I 14:30 → ED 14:54 → ED-I 14:55 → MS2 14:56
PROVIDERS: Family Medicine; ADMIT Hospitalist; ATTEND Hospitalist
DX: J45.901 Unspecified asthma with (acute) exacerbation (principal); J96.11 Chronic respiratory failure with hypoxia; J44.9 Chronic obstructive pulmonary disease, unspecified; F41.9 Anxiety disorder, unspecified; K21.9 Gastro-esophageal reflux disease without esophagitis; G62.9 Polyneuropathy, unspecified; F17.200 Nicotine dependence, unspecified, uncomplicated; Z99.81 Dependence on supplemental oxygen; Z20.822 Contact with and (suspected) exposure to COVID-19
CPT/HCPCS: G0378; J3475

== ENCOUNTER 2021-12-21 14:56 | Observation (INO) | payer OTHER ==
[2021-12-21] VITALS (20 sets, daily range): BP systolic 79–125; BP diastolic 37–77
[~2021-12-21] VITALS: Ht 162.6 cm; Wt 88.0 kg
[~2021-12-21 14:56] MED LIST changes: +ALL DAY ALLG10 MG PO; +ANTACID; +FLONASE AL50 MCG/ACT NAB; +GABAPENTIN600 MG PO
[2021-12-21 15:39] LABS: HEMATOCRIT 40.5 % (37.0-47.0); HEMOGLOBIN 12.5 g/dl (12.0-16.0); IMMATURE GRANULOCYTES 0.4 % (0.0-5.0); MEAN CELL VOLUME 70.6 fL CALC (80.0-100.0); MEAN CORPUSCULAR HGB 21.8 pG CALC (26.0-32.0); MEAN CORPUSCULAR HGB CONC 30.9 g/dL CAL (32.0-36.0); NEUT# 6.66 thou/uL (2.00-7.15); RED BLOOD COUNT 5.74 mill/uL (4.20-5.60); RED CELL DISTRI WIDTH 15.3 % (11.5-15.5)
[2021-12-21 15:50] LABS: ALBUMIN 3.8 g/dL (3.2-5.0); ALKALINE PHOSPHATASE 77 u/l (38-126); BUN 10 mg/dL (7-17); BUN/CREATININE RATIO 12 (12-20 (CALC)); CARBON DIOXIDE 25 mmol/l (22-30); CHLORIDE 105 mmol/l (95-108); CREATININE 0.8 mg/dL (0.5-1.0); GFR > 60 ML/MIN (>=60 (CALC)); GFR FOR AFR.AMER. > 60 ML/MIN (>=60 (CALC)); SGOT/AST 22 u/l (14-36); SODIUM 135 mmol/l (137-146); TOTAL PROTEIN 6.3 g/dL (6.3-8.2)
[2021-12-21 15:51] LABS: ANION GAP 9 (6-22 (CALC)); BILIRUBIN, TOTAL 0.3 mg/dL (0.0-1.4); POTASSIUM 3.9 mmol/l (3.5-5.1)
[2021-12-21 16:06] LABS: URINE BILIRUBIN - DIPSTICK NEGATIVE (NEGATIVE); URINE BLOOD DIPSTICK NEGATIVE (NEGATIVE); URINE COLOR YELLOW; URINE GLUCOSE - DIPSTICK NEGATIVE (NEGATIVE); URINE KETONE NEGATIVE (NEGATIVE); URINE LEUK ESTERASE NEGATIVE (NEGATIVE); URINE NITRITE - DIPSTICK NEGATIVE (Negative); URINE PH 6.5 (4.5-8.0); URINE PROTEIN - DIPSTICK 100 mg/dL (NEG-TRACE); URINE SPECIFIC GRAVITY >=1.030; URINE UROBILINOGEN - DIPSTICK 0.2 E.U./dL (0.2)
[2021-12-21 16:07] LABS: URINE RBC 0-2 RBC/hpf (0-5); URINE SQUAMOUS EPITHELIAL CELL FEW EPI/hpf (0-FEW)
[2021-12-22] VITALS (7 sets, daily range): BP systolic 115–128; BP diastolic 65–75
[2021-12-22 05:35] LABS: IMMATURE GRANULOCYTES 0.8 % (0.0-5.0); MEAN CELL VOLUME 70.5 fL CALC (80.0-100.0); MEAN CORPUSCULAR HGB 21.9 pG CALC (26.0-32.0); NEUT# 8.3 thou/uL (2.00-7.15); RED BLOOD COUNT 7.04 mill/uL (4.20-5.60); RED CELL DISTRI WIDTH 17.4 % (11.5-15.5)
[2021-12-22 05:38] LABS: HEMATOCRIT 49.6 % (37.0-47.0); HEMOGLOBIN 15.4 g/dl (12.0-16.0)
[2021-12-22 05:42] LABS: ANION GAP 11 (6-22 (CALC)); BUN 12 mg/dL (7-17); BUN/CREATININE RATIO 16 (12-20 (CALC)); CARBON DIOXIDE 20 mmol/l (22-30); CHLORIDE 107 mmol/l (95-108); CREATININE 0.8 mg/dL (0.5-1.0); GFR > 60 ML/MIN (>=60 (CALC)); GFR FOR AFR.AMER. > 60 ML/MIN (>=60 (CALC)); MAGNESIUM 2.1 mg/dL (1.6-2.3); SODIUM 133 mmol/l (137-146)
[2021-12-22 05:56] LABS: POTASSIUM 4.7 mmol/l (3.5-5.1)
[2021-12-22] MEDS ORDERED: LORAZEPAM0.5 MG PO (13:21)
[2021-12-23 03:55] VITALS: BP 114/72
[2021-12-23 06:18] LABS: MEAN CELL VOLUME 70.4 fL CALC (80.0-100.0); MEAN CORPUSCULAR HGB 22.5 pG CALC (26.0-32.0); MEAN CORPUSCULAR HGB CONC 31.9 g/dL CAL (32.0-36.0); RED BLOOD COUNT 5.47 mill/uL (4.20-5.60); RED CELL DISTRI WIDTH 15.7 % (11.5-15.5)
[2021-12-23 06:24] LABS: HEMATOCRIT 38.5 % (37.0-47.0); HEMOGLOBIN 12.3 g/dl (12.0-16.0)
[2021-12-23 06:36] LABS: ANION GAP 16 (6-22 (CALC)); BUN 15 mg/dL (7-17); BUN/CREATININE RATIO 20 (12-20 (CALC)); CARBON DIOXIDE 20 mmol/l (22-30); CHLORIDE 105 mmol/l (95-108); CREATININE 0.8 mg/dL (0.5-1.0); GFR > 60 ML/MIN (>=60 (CALC)); GFR FOR AFR.AMER. > 60 ML/MIN (>=60 (CALC)); MAGNESIUM 2.2 mg/dL (1.6-2.3); POTASSIUM 5.1 mmol/l (3.5-5.1); SODIUM 136 mmol/l (137-146)
[2021-12-23 07:19] VITALS: BP 123/57
[2021-12-23 10:30] VITALS: BP 123/72
[2021-12-23 10:40] VITALS: BP 123/72
[2021-12-23] MEDS ORDERED: PREDNISONE10 MG PO (12:44)
== END 2021-12-23 13:20 | disposition home or self-care (01) ==
LOC: ED 14:56 → ED-I 17:45 → ED 18:15 → MS2 18:16
PROVIDERS: Family Medicine; Hospitalist; ADMIT Internal Medicine; ATTEND Internal Medicine
DX: J45.901 Unspecified asthma with (acute) exacerbation (principal); J44.9 Chronic obstructive pulmonary disease, unspecified; J96.11 Chronic respiratory failure with hypoxia; F41.9 Anxiety disorder, unspecified; K21.9 Gastro-esophageal reflux disease without esophagitis; T78.40XA Allergy, unspecified, initial encounter; F17.200 Nicotine dependence, unspecified, uncomplicated; X58.XXXA Exposure to other specified factors, initial encounter; Z99.81 Dependence on supplemental oxygen; Z20.822 Contact with and (suspected) exposure to COVID-19
CPT/HCPCS: G0378; J1650; J3475

== ENCOUNTER 2022-01-20 10:50 | Observation (INO) | payer OTHER ==
[2022-01-20] VITALS (9 sets, daily range): BP systolic 100–127; BP diastolic 71–89
[~2022-01-20] VITALS: Ht 162.6 cm; Wt 89.0 kg
[2022-01-20 11:19] LABS: HEMATOCRIT 40.9 % (37.0-47.0); HEMOGLOBIN 12.8 g/dl (12.0-16.0); IMMATURE GRANULOCYTES 0.3 % (0.0-5.0); MEAN CELL VOLUME 71.4 fL CALC (80.0-100.0); MEAN CORPUSCULAR HGB 22.3 pG CALC (26.0-32.0); MEAN CORPUSCULAR HGB CONC 31.3 g/dL CAL (32.0-36.0); NEUT# 4.84 thou/uL (2.00-7.15); RED BLOOD COUNT 5.73 mill/uL (4.20-5.60)
[2022-01-20 11:39] LABS: ALKALINE PHOSPHATASE 87 u/l (38-126); BUN 5 mg/dL (7-17); BUN/CREATININE RATIO 7 (12-20 (CALC)); CHLORIDE 101 mmol/l (95-108); CREATININE 0.7 mg/dL (0.5-1.0); GFR FOR AFR.AMER. > 60 ML/MIN (>=60 (CALC)); GFR OTHER RACES > 60 ML/MIN (>=60 (CALC)); LIPASE 767 u/l (23-300); POTASSIUM 4.3 mmol/l (3.5-5.1); SGOT/AST 25 u/l (14-36); SODIUM 136 mmol/l (137-146); TOTAL PROTEIN 7.1 g/dL (6.3-8.2)
[2022-01-20 11:48] LABS: ANION GAP 12 (6-22 (CALC)); BILIRUBIN, TOTAL 0.5 mg/dL (0.0-1.4); CARBON DIOXIDE 27 mmol/l (22-30)
[2022-01-21 00:10] VITALS: BP 118/79
[2022-01-21 04:06] VITALS: BP 96/50
[2022-01-21 05:34] LABS: HEMATOCRIT 36.2 % (37.0-47.0); HEMOGLOBIN 11.4 g/dl (12.0-16.0); MEAN CELL VOLUME 72.4 fL CALC (80.0-100.0); MEAN CORPUSCULAR HGB 22.8 pG CALC (26.0-32.0); MEAN CORPUSCULAR HGB CONC 31.5 g/dL CAL (32.0-36.0); RED CELL DISTRI WIDTH 15.9 % (11.5-15.5)
[2022-01-21 06:05] LABS: ANION GAP 10 (6-22 (CALC)); BUN 6 mg/dL (7-17); BUN/CREATININE RATIO 8 (12-20 (CALC)); CARBON DIOXIDE 22 mmol/l (22-30); CHLORIDE 110 mmol/l (95-108); CREATININE 0.8 mg/dL (0.5-1.0); GFR FOR AFR.AMER. > 60 ML/MIN (>=60 (CALC)); GFR OTHER RACES > 60 ML/MIN (>=60 (CALC)); MAGNESIUM 1.9 mg/dL (1.6-2.3); POTASSIUM 4.4 mmol/l (3.5-5.1); SODIUM 138 mmol/l (137-146)
[2022-01-21 06:38] VITALS: BP 100/58
== END 2022-01-21 14:13 | disposition home or self-care (01) ==
LOC: ED 10:50 → ED-I 15:20 → ED 15:41 → MS2 15:42
PROVIDERS: Family Medicine; ADMIT Hospitalist; ATTEND Hospitalist
DX: R11.2 Nausea with vomiting, unspecified (principal); R10.30 Lower abdominal pain, unspecified; N83.201 Unspecified ovarian cyst, right side; I10 Essential (primary) hypertension; J44.9 Chronic obstructive pulmonary disease, unspecified; F41.9 Anxiety disorder, unspecified; K21.9 Gastro-esophageal reflux disease without esophagitis; F17.200 Nicotine dependence, unspecified, uncomplicated; Z99.81 Dependence on supplemental oxygen; Z20.822 Contact with and (suspected) exposure to COVID-19
CPT/HCPCS: G0378; J1650; Q9967

== ENCOUNTER 2022-03-18 20:00 | Emergency (ER) | payer OTHER ==
[~2022-03-18] VITALS: Ht 162.6 cm; Wt 83.1 kg
[2022-03-18 23:34] LABS: URINE BILIRUBIN - DIPSTICK NEGATIVE (NEGATIVE); URINE BLOOD DIPSTICK TRACE-INTACT (NEGATIVE); URINE COLOR YELLOW; URINE GLUCOSE - DIPSTICK NEGATIVE (NEGATIVE); URINE PROTEIN - DIPSTICK 30 mg/dL (NEG-TRACE); URINE SPECIFIC GRAVITY 1.015
[2022-03-18 23:35] LABS: URINE LEUK ESTERASE SMALL (NEGATIVE); URINE NITRITE - DIPSTICK POSITIVE (Negative)
[2022-03-18 23:36] LABS: URINE KETONE NEGATIVE (NEGATIVE)
[2022-03-18 23:46] LABS: URINE BACTERIA MANY hpf; URINE EPITHELIAL CELLS MODERATE EPI/hpf (0-FEW); URINE WBC >100 WBC/hpf (0-5)
[2022-03-19] MEDS ORDERED: CYCLOBENZAPRINE10 MG PO (00:40)
[2022-03-19] MEDS ORDERED: ULTRAM50 M1 PO (00:41)
[2022-03-19] MEDS ORDERED: CIPROFLOXACN500 MG PO (01:00)
[2022-03-19 01:08] VITALS: BP 101/60
== END 2022-03-19 01:08 | disposition home or self-care (01) | DRG 552 ==
LOC: ED 20:00
PROVIDERS: Emergency Medicine
DX: S33.5XXA Sprain of ligaments of lumbar spine, initial encounter (principal); N39.0 Urinary tract infection, site not specified; J44.9 Chronic obstructive pulmonary disease, unspecified; B96.20 Unspecified Escherichia coli [E. coli] as the cause of diseases classified elsewhere; Z99.81 Dependence on supplemental oxygen; V49.9XXA Car occupant (driver) (passenger) injured in unspecified traffic accident, initial encounter

== ENCOUNTER 2022-04-13 02:39 | Emergency (ER) | payer OTHER ==
[~2022-04-13] VITALS: Ht 162.6 cm; Wt 86.0 kg
[~2022-04-13 02:39] MED LIST changes: +CYCLOBENZAPRINE10 MG PO
[2022-04-13 02:58] LABS: HEMATOCRIT 37.3 % (37.0-47.0); HEMOGLOBIN 12.1 g/dl (12.0-16.0); IMMATURE GRANULOCYTES 0.1 % (0.0-5.0); MEAN CELL VOLUME 68.8 fL CALC (80.0-100.0); MEAN CORPUSCULAR HGB 22.3 pG CALC (26.0-32.0); MEAN CORPUSCULAR HGB CONC 32.4 g/dL CAL (32.0-36.0); NEUT# 3.97 thou/uL (2.00-7.15); RED BLOOD COUNT 5.42 mill/uL (4.20-5.60); RED CELL DISTRI WIDTH 14.8 % (11.5-15.5)
[2022-04-13 03:05] LABS: ALBUMIN 4.1 g/dL (3.2-5.0); ALKALINE PHOSPHATASE 91 u/l (38-126); BILIRUBIN, TOTAL 0.3 mg/dL (0.0-1.4); BUN 11 mg/dL (7-17); BUN/CREATININE RATIO 12 (12-20 (CALC)); CARBON DIOXIDE 23 mmol/l (22-30); CHLORIDE 107 mmol/l (95-108); CREATININE 0.9 mg/dL (0.5-1.0); GFR FOR AFR.AMER. > 60 ML/MIN (>=60 (CALC)); GFR OTHER RACES > 60 ML/MIN (>=60 (CALC)); SGOT/AST 24 u/l (14-36); SODIUM 137 mmol/l (137-146); TOTAL PROTEIN 7.2 g/dL (6.3-8.2)
[2022-04-13 03:07] LABS: ANION GAP 11 (6-22 (CALC)); POTASSIUM 3.9 mmol/l (3.5-5.1)
[2022-04-13] MEDS ORDERED: VISTARIL25 MG PO (04:24)
[2022-04-13 04:27] VITALS: BP 103/75
== END 2022-04-13 04:41 | disposition home or self-care (01) ==
LOC: ED 02:39
PROVIDERS: Family Medicine
DX: J45.901 Unspecified asthma with (acute) exacerbation (principal); J44.9 Chronic obstructive pulmonary disease, unspecified; F41.9 Anxiety disorder, unspecified; Z99.81 Dependence on supplemental oxygen

== ENCOUNTER 2022-07-20 17:03 | Emergency (ER) | payer OTHER ==
[~2022-07-20] VITALS: Ht 162.6 cm; Wt 77.0 kg
[2022-07-20] MEDS ORDERED: LEVAQUIN750 M1 PO (18:17)
[2022-07-20] MEDS ORDERED: ATIVAN0.5 MG PO (18:17)
[2022-07-20] MEDS ORDERED: PREDNISONE50 MG PO (18:17)
[2022-07-20] MEDS ORDERED: NEBULIZER KIT/TUBING PO (18:17)
[2022-07-20] MEDS ORDERED: PROVENTIL0.083 % IN (18:18)
[2022-07-20 18:51] VITALS: BP 98/66
[2022-07-21] MEDS ORDERED: PROVENTIL HFA108 MCG PO ×2 (16:01→16:03)
[2022-07-21] MEDS ORDERED: NEBULIZER KIT/TUBING PO (16:01)
== END 2022-07-20 18:38 | disposition home or self-care (01) ==
LOC: ED 17:03
DX: J45.901 Unspecified asthma with (acute) exacerbation (principal); J18.9 Pneumonia, unspecified organism; J44.0 Chronic obstructive pulmonary disease with (acute) lower respiratory infection; Z99.81 Dependence on supplemental oxygen; Z20.822 Contact with and (suspected) exposure to COVID-19

== ENCOUNTER 2022-07-21 14:20 | Emergency (ER) | payer OTHER ==
[~2022-07-21] VITALS: Ht 162.6 cm; Wt 77.0 kg
[~2022-07-21 14:20] MED LIST changes: +ATIVAN0.5 MG PO; +LEVAQUIN750 M1 PO; +NEBULIZER KIT/TUBING PO; +PROVENTIL0.083 % IN
[2022-07-21 14:30] VITALS: BP 123/79
[2022-07-21 15:00] VITALS: BP 119/74
[2022-07-21 15:00] LABS: HEMATOCRIT 36.1 % (37.0-47.0); HEMOGLOBIN 11.7 g/dl (12.0-16.0); IMMATURE GRANULOCYTES 0.3 % (0.0-5.0); MEAN CELL VOLUME 70.2 fL CALC (80.0-100.0); MEAN CORPUSCULAR HGB 22.8 pG CALC (26.0-32.0); MEAN CORPUSCULAR HGB CONC 32.4 g/dL CAL (32.0-36.0); NEUT# 13.88 thou/uL (2.00-7.15); RED BLOOD COUNT 5.14 mill/uL (4.20-5.60); RED CELL DISTRI WIDTH 15.1 % (11.5-15.5)
[2022-07-21 15:12] LABS: ALBUMIN 4.3 g/dL (3.2-5.0); ALKALINE PHOSPHATASE 91 u/l (38-126); ANION GAP 14 (6-22 (CALC)); BUN 12 mg/dL (7-17); BUN/CREATININE RATIO 16 (12-20 (CALC)); CARBON DIOXIDE 22 mmol/l (22-30); CHLORIDE 109 mmol/l (95-108); CREATININE 0.8 mg/dL (0.5-1.0); GFR FOR AFR.AMER. > 60 ML/MIN (>=60 (CALC)); GFR OTHER RACES > 60 ML/MIN (>=60 (CALC)); SGOT/AST 24 u/l (14-36); SODIUM 140 mmol/l (137-146)
[2022-07-21 15:13] LABS: BILIRUBIN, TOTAL 0.1 mg/dL (0.0-1.4)
[2022-07-21 15:30] VITALS: BP 110/69
[2022-07-21] MEDS ORDERED: NEBULIZER KIT/TUBING PO (16:01)
[2022-07-21] MEDS ORDERED: PROVENTIL HFA108 MCG PO ×2 (16:01→16:03)
[2022-07-21 16:21] VITALS: BP 110/69
== END 2022-07-21 16:34 | disposition home or self-care (01) ==
LOC: ED 14:20
PROVIDERS: Family Medicine
DX: J18.9 Pneumonia, unspecified organism (principal); J45.901 Unspecified asthma with (acute) exacerbation; J44.0 Chronic obstructive pulmonary disease with (acute) lower respiratory infection; Z99.81 Dependence on supplemental oxygen; Z20.822 Contact with and (suspected) exposure to COVID-19

== ENCOUNTER 2022-08-11 13:07 | Observation (INO) | payer OTHER ==
[2022-08-11] VITALS (12 sets, daily range): BP systolic 97–199; BP diastolic 48–178
[~2022-08-11] VITALS: Ht 162.6 cm; Wt 52.1 kg
[~2022-08-11 13:07] MED LIST changes: +PROVENTIL HFA108 MCG PO
[2022-08-11 14:29] LABS: BASO% 0.2 % (0-3); EOS% 0.9 % (0-8); HEMOGLOBIN 13.2 g/dl (12.0-16.0); IMMATURE GRANULOCYTES 0.3 % (0.0-5.0); LYMPH% 36.3 % (15-41); MEAN CELL VOLUME 69.3 fL CALC (80.0-100.0); MEAN CORPUSCULAR HGB 23.4 pG CALC (26.0-32.0); MEAN CORPUSCULAR HGB CONC 33.8 g/dL CAL (32.0-36.0); MONO% 6.2 % (2-13); NEUT# 4.81 thou/uL (2.00-7.15); NEUT% 56.1 % (42-76); RED BLOOD COUNT 5.63 mill/uL (4.20-5.60); RED CELL DISTRI WIDTH 15.7 % (11.5-15.5)
[2022-08-11 14:41] LABS: ALBUMIN 4.2 g/dL (3.2-5.0); ALKALINE PHOSPHATASE 91 u/l (38-126); ANION GAP 13 (6-22 (CALC)); BUN 8 mg/dL (7-17); BUN/CREATININE RATIO 9 (12-20 (CALC)); CARBON DIOXIDE 26 mmol/l (22-30); CHLORIDE 107 mmol/l (95-108); CREATININE 0.9 mg/dL (0.5-1.0); GFR FOR AFR.AMER. > 60 ML/MIN (>=60 (CALC)); GFR OTHER RACES > 60 ML/MIN (>=60 (CALC)); POTASSIUM 3.7 mmol/l (3.5-5.1); SGOT/AST 25 u/l (14-36); SODIUM 142 mmol/l (137-146); TOTAL PROTEIN 6.9 g/dL (6.3-8.2)
[2022-08-11 14:45] LABS: BILIRUBIN, TOTAL 0.5 mg/dL (0.0-1.4)
[2022-08-12 03:27] VITALS: BP 121/83
[2022-08-12 06:29] VITALS: BP 109/70
[2022-08-12 07:44] VITALS: BP 109/70
[2022-08-12 13:26] VITALS: BP 145/93
[2022-08-12 19:10] VITALS: BP 124/84
[2022-08-13 00:08] VITALS: BP 112/66
[2022-08-13 04:37] VITALS: BP 107/62
[2022-08-13 05:17] LABS: HEMOGLOBIN 11.9 g/dl (12.0-16.0); IMMATURE GRANULOCYTES 0.3 % (0.0-5.0); LYMPH% 3.7 % (15-41); MEAN CELL VOLUME 70.7 fL CALC (80.0-100.0); MEAN CORPUSCULAR HGB 23.4 pG CALC (26.0-32.0); MEAN CORPUSCULAR HGB CONC 33.1 g/dL CAL (32.0-36.0); MONO% 3.3 % (2-13); NEUT# 19.19 thou/uL (2.00-7.15); NEUT% 92.7 % (42-76); RED BLOOD COUNT 5.09 mill/uL (4.20-5.60); RED CELL DISTRI WIDTH 15.6 % (11.5-15.5)
[2022-08-13 05:22] LABS: ALBUMIN 3.9 g/dL (3.2-5.0); ALKALINE PHOSPHATASE 79 u/l (38-126); ANION GAP 14 (6-22 (CALC)); BUN 12 mg/dL (7-17); BUN/CREATININE RATIO 16 (12-20 (CALC)); CARBON DIOXIDE 24 mmol/l (22-30); CHLORIDE 104 mmol/l (95-108); CREATININE 0.8 mg/dL (0.5-1.0); GFR FOR AFR.AMER. > 60 ML/MIN (>=60 (CALC)); GFR OTHER RACES > 60 ML/MIN (>=60 (CALC)); POTASSIUM 4.3 mmol/l (3.5-5.1); SGOT/AST 25 u/l (14-36); SODIUM 138 mmol/l (137-146); TOTAL PROTEIN 6.1 g/dL (6.3-8.2)
[2022-08-13 11:21] VITALS: BP 99/60
[2022-08-13] MEDS ORDERED: PREDNISONE10 MG PO (12:09)
== END 2022-08-13 13:05 | disposition home or self-care (01) ==
LOC: ED 13:07 → ED-I 16:51 → ED 16:59 → MS2 17:00
PROVIDERS: Nurse Practitioner; Nurse Practitioner Family; ADMIT Internal Medicine; ATTEND Internal Medicine
DX: J45.901 Unspecified asthma with (acute) exacerbation (principal); J44.9 Chronic obstructive pulmonary disease, unspecified; R11.2 Nausea with vomiting, unspecified; R10.11 Right upper quadrant pain; F41.9 Anxiety disorder, unspecified; K21.9 Gastro-esophageal reflux disease without esophagitis; F17.200 Nicotine dependence, unspecified, uncomplicated; Z99.81 Dependence on supplemental oxygen
CPT/HCPCS: G0378; J1650

== ENCOUNTER 2022-09-14 11:42 | Emergency (ER) | payer OTHER ==
[~2022-09-14] VITALS: Ht 162.6 cm; Wt 72.5 kg
[2022-09-14 14:06] LABS: BASO% 0.2 % (0-3); EOS% 0.4 % (0-8); HEMATOCRIT 40.8 % (37.0-47.0); IMMATURE GRANULOCYTES 0.4 % (0.0-5.0); LYMPH% 24.2 % (15-41); MEAN CELL VOLUME 71.2 fL CALC (80.0-100.0); MEAN CORPUSCULAR HGB 22.7 pG CALC (26.0-32.0); MEAN CORPUSCULAR HGB CONC 31.9 g/dL CAL (32.0-36.0); MONO% 8.4 % (2-13); NEUT# 6.33 thou/uL (2.00-7.15); NEUT% 66.4 % (42-76); RED BLOOD COUNT 5.73 mill/uL (4.20-5.60)
[2022-09-14 14:16] LABS: URINE BILIRUBIN - DIPSTICK NEGATIVE (NEGATIVE); URINE BLOOD DIPSTICK NEGATIVE (NEGATIVE); URINE COLOR YELLOW; URINE GLUCOSE - DIPSTICK NEGATIVE (NEGATIVE); URINE KETONE NEGATIVE (NEGATIVE); URINE LEUK ESTERASE NEGATIVE (NEGATIVE); URINE PROTEIN - DIPSTICK NEGATIVE (NEG-TRACE)
[2022-09-14 14:17] LABS: ALBUMIN 4.6 g/dL (3.2-5.0); ALKALINE PHOSPHATASE 101 u/l (38-126); ANION GAP 8 (6-22 (CALC)); BUN 8 mg/dL (7-17); BUN/CREATININE RATIO 10 (12-20 (CALC)); CARBON DIOXIDE 28 mmol/l (22-30); CHLORIDE 104 mmol/l (95-108); CREATININE 0.8 mg/dL (0.5-1.0); GFR FOR AFR.AMER. > 60 ML/MIN (>=60 (CALC)); GFR OTHER RACES > 60 ML/MIN (>=60 (CALC)); POTASSIUM 3.8 mmol/l (3.5-5.1); SGOT/AST 27 u/l (14-36); SODIUM 136 mmol/l (137-146)
[2022-09-14 14:20] LABS: URINE NITRITE - DIPSTICK NEGATIVE (Negative)
[2022-09-14 14:23] LABS: BILIRUBIN, TOTAL 0.3 mg/dL (0.02-1.3); TOTAL PROTEIN 7.6 g/dL (6.3-8.2)
[2022-09-14] MEDS ORDERED: ZOFRAN4 MG/TAB PO (16:21)
[2022-09-14] MEDS ORDERED: PREDNISONE20 MG PO (16:21)
[2022-09-14] MEDS ORDERED: ALBUTEROL SUL1.25 MG IN (16:21)
[2022-09-14] MEDS ORDERED: PROAIR HFA IN (16:21)
[2022-09-14 16:55] VITALS: BP 115/75
== END 2022-09-14 16:56 | disposition home or self-care (01) ==
LOC: ED 11:42
PROVIDERS: Nurse Practitioner
DX: J45.901 Unspecified asthma with (acute) exacerbation (principal); R11.10 Vomiting, unspecified; J44.9 Chronic obstructive pulmonary disease, unspecified; Z99.81 Dependence on supplemental oxygen; Z20.822 Contact with and (suspected) exposure to COVID-19

== ENCOUNTER 2022-10-19 17:46 | Emergency (ER) | payer OTHER ==
[~2022-10-19] VITALS: Ht 162.6 cm; Wt 71.0 kg
[~2022-10-19 17:46] MED LIST changes: +ALBUTEROL SUL1.25 MG IN; +PREDNISONE20 MG PO
[2022-10-19 18:36] VITALS: BP 112/71
[2022-10-19 19:03] LABS: BASO% 0.4 % (0-3); EOS% 1.8 % (0-8); HEMATOCRIT 35.5 % (37.0-47.0); IMMATURE GRANULOCYTES 0.2 % (0.0-5.0); LYMPH% 41.6 % (15-41); MEAN CELL VOLUME 72.7 fL CALC (80.0-100.0); MEAN CORPUSCULAR HGB 22.3 pG CALC (26.0-32.0); MEAN CORPUSCULAR HGB CONC 30.7 g/dL CAL (32.0-36.0); MONO% 12.8 % (2-13); NEUT# 3.64 thou/uL (2.00-7.15); NEUT% 43.2 % (42-76); RED BLOOD COUNT 4.88 mill/uL (4.20-5.60); RED CELL DISTRI WIDTH 15.3 % (11.5-15.5)
[2022-10-19 19:07] LABS: HEMOGLOBIN 10.9 g/dl (12.0-16.0)
[2022-10-19 19:13] LABS: ALBUMIN 4.2 g/dL (3.2-5.0); ALKALINE PHOSPHATASE 73 u/l (38-126); ANION GAP 8 (6-22 (CALC)); BUN 12 mg/dL (7-17); BUN/CREATININE RATIO 11 (12-20 (CALC)); CARBON DIOXIDE 27 mmol/l (22-30); CHLORIDE 107 mmol/l (95-108); CREATININE 1.1 mg/dL (0.5-1.0); GFR FOR AFR.AMER. > 60 ML/MIN (>=60 (CALC)); GFR OTHER RACES 55 ML/MIN (>=60 (CALC)); POTASSIUM 3.8 mmol/l (3.5-5.1); SGOT/AST 25 u/l (14-36); SODIUM 138 mmol/l (137-146)
[2022-10-19 19:30] VITALS: BP 110/78
[2022-10-19] MEDS ORDERED: PREDNISONE50 MG PO (19:47)
[2022-10-19 20:00] VITALS: BP 129/85
[2022-10-19 20:20] VITALS: BP 129/85
== END 2022-10-19 20:33 | disposition home or self-care (01) ==
LOC: ED 17:46
PROVIDERS: Family Medicine
DX: J45.901 Unspecified asthma with (acute) exacerbation (principal); J44.9 Chronic obstructive pulmonary disease, unspecified; Z87.891 Personal history of nicotine dependence; Z20.822 Contact with and (suspected) exposure to COVID-19

== ENCOUNTER 2022-12-12 05:43 | Observation (INO) | payer OTHER ==
[2022-12-12] VITALS (24 sets, daily range): BP systolic 86–116; BP diastolic 55–89
[~2022-12-12] VITALS: Ht 162.6 cm; Wt 69.0 kg
--- NOTE | 2022-12-12 05:51 | NUR ---
PT AMBULATED TO RM 14 AND APPEARED TO BE IN PAIN. PT PUT ON MONITOR, SITTING UP IN BED WITH CALL LIGHT WITH IN REACH.
[2022-12-12 06:24] LABS: BASO% 0.3 % (0-3); EOS% 0.5 % (0-8); HEMATOCRIT 39.7 % (37.0-47.0); HEMOGLOBIN 12.5 g/dl (12.0-16.0); IMMATURE GRANULOCYTES 0.3 % (0.0-5.0); LYMPH% 32.1 % (15-41); MEAN CELL VOLUME 72.3 fL CALC (80.0-100.0); MEAN CORPUSCULAR HGB 22.8 pG CALC (26.0-32.0); MEAN CORPUSCULAR HGB CONC 31.5 g/dL CAL (32.0-36.0); MONO% 6.6 % (2-13); NEUT# 6.44 thou/uL (2.00-7.15); NEUT% 60.2 % (42-76); RED BLOOD COUNT 5.49 mill/uL (4.20-5.60); RED CELL DISTRI WIDTH 14.3 % (11.5-15.5)
[2022-12-12 06:41] LABS: ALBUMIN 4.3 g/dL (3.2-5.0); ALKALINE PHOSPHATASE 81 u/l (38-126); ANION GAP 12 (6-22 (CALC)); BUN 14 mg/dL (7-17); BUN/CREATININE RATIO 15 (12-20 (CALC)); CARBON DIOXIDE 22 mmol/l (22-30); CHLORIDE 108 mmol/l (95-108); CREATININE 0.9 mg/dL (0.5-1.0); GFR FOR AFR.AMER. > 60 ML/MIN (>=60 (CALC)); GFR OTHER RACES > 60 ML/MIN (>=60 (CALC)); POTASSIUM 4.1 mmol/l (3.5-5.1); SGOT/AST 23 u/l (14-36); SODIUM 138 mmol/l (137-146); TOTAL PROTEIN 6.9 g/dL (6.3-8.2)
[2022-12-12] MEDS ORDERED: LEVOFLOXACIN500MG PO (07:02)
[2022-12-12] MEDS ORDERED: HYDROXYCHLOR200 M1 PO (07:02)
[2022-12-12] MEDS ORDERED: PROTONIX40 M2 PO (07:03)
[2022-12-12] MEDS ORDERED: ADVAIR DISK1 INH (07:06)
--- NOTE | 2022-12-12 09:25 | NUR ---
pt resting comfortably
--- NOTE | 2022-12-12 10:08 | NUR ---
report called to [facility], all questions anwsered at this time
--- NOTE | 2022-12-12 13:50 | NUR ---
PATIENT RECIEVED TO FLOOR, COMPLAINING OF PAIN AT RIGHT WRIST IV SIGHT, IV REMOVED, STILL HAVE ACCESS TO LAC WITH NS AND VANCO INFUSINING. CALLED FOR TRAY MEDICATIONS REVIEWED, PATIENTS OWN MEDS WILL BE PICKED UP BY MOTHER AT NURSES STATION, NO COMPLAINTS OF PAIN BESIDES IV SITE.
[2022-12-12 19:37] LABS: URINE BILIRUBIN - DIPSTICK NEGATIVE (NEGATIVE); URINE BLOOD DIPSTICK NEGATIVE (NEGATIVE); URINE COLOR YELLOW; URINE GLUCOSE - DIPSTICK NEGATIVE (NEGATIVE); URINE KETONE NEGATIVE (NEGATIVE); URINE LEUK ESTERASE NEGATIVE (NEGATIVE); URINE NITRITE - DIPSTICK NEGATIVE (Negative); URINE PROTEIN - DIPSTICK NEGATIVE (NEG-TRACE); URINE SPECIFIC GRAVITY >=1.030; URINE UROBILINOGEN - DIPSTICK 0.2 E.U./dL (0.2)
--- NOTE | 2022-12-12 20:45 | NUR ---
PT RESTING IN BED WATCHING TV, NO SIGNS OF DISTRESS NOTED, RESP EVEN AND UNLABORED. PT ALERT AND ORIENTED X3, PT STATES SHE USES 02 AT HOME, 02 2L NC APPLIED. PT LUNG SOUNDS TIGHT AND WHEEZES, RT CALLED FOR NEB TX. PT REQUESTING MD CHAPINCITO NOTIFIED AND ORDER OBTAINED. ASSESSMENT COMPLETED, CALL LIGHT IN REACH,CONTINUE TO MONITOR.
--- NOTE | 2022-12-13 00:10 | NUR ---
PT RESTING IN BED, S/O AT BEDSIDE, PT MEDICATED PER MAR, VOICES NO NEEDS OR COMPLAINTS AT THIS TIME. CALL LIGHT IN REACH,CONTINUE TO MONITOR.
[2022-12-13 04:00] VITALS: BP 116/77
--- NOTE | 2022-12-13 04:00 | NUR ---
PT RESTING IN BED, NO SIGNS OF DISTRESS NOTED, RESP EVEN AND UNLABORED. VOICES NO NEED OR COMPLAINTS AT THIS TIME. CALL LIGHT IN REACH,CONTINUE TO MONITOR.
[2022-12-13 04:04] VITALS: BP 116/77
[2022-12-13 06:43] VITALS: BP 103/52
--- NOTE | 2022-12-13 07:00 | NUR ---
SHIFT CHANGE REPORT, PT SLEEPING IN LEFT SIDE-LYING POSITION WITH HEAD COVERED, NO SIGN DISCOMFORT AT THIS TIME, CALL STOVER IN REACH AND BED LOCKED IN LOWEST POSITION.
--- NOTE | 2022-12-13 09:00 | NUR ---
PT AWAKE ALERT AND ORIENTED, C/O BURNING, ACHING, SHARP PAIN TO BLE, LEGS SENSITIVE AND TENDER TO PALPATE WIT PROTRUDING VEINS, O2 @ 2L VIA NC IN PLACE, TELE MONITOR IN PLACE, IVF INFUSING @ 80 ML/HR TO SUTE IN RW, PAIN CONCERNS ADDRESSED, CALL STOVER IN REACH AND BED LOCKED IN LOWEST POSITION.
--- NOTE | 2022-12-13 12:00 | NUR ---
RESTING IN BED C/O GENERALISED PAIN MD NOTIFIED AND WROTE ORDERS. PAIN RELIEVED AFTER MED GIVEN
[2022-12-13 15:29] VITALS: BP 124/80
--- NOTE | 2022-12-13 16:54 | NUR ---
REUESTING SHOWER A THIS TIME AND ASSISTED WITH SET-UP BY CHILDREN'S ENTERTAINER WILL CONTINUE TO MONITOR.
[2022-12-13 18:47] VITALS: BP 110/61
--- NOTE | 2022-12-13 20:30 | NUR ---
PT RESTING IN BED WITH EYES CLOSED, EASILY AROUSED TO VERBAL STIMULI. PT ALERT AND ORIENTED X3, NO SIGNS OF DISTRESS NOTED, RESP EVEN AND UNLABORED. PT IS ON 2L NC, DISCUSSED POC, NO EDEMA. ASSESSMENT COMPLETED, PT DENIES ANY NEEDS OR COMPLAINTS AT THIS TIME. CALL LIGHT IN REACH,CONTINUE TO MONITOR.
[2022-12-14] VITALS (7 sets, daily range): BP systolic 103–126; BP diastolic 61–76
--- NOTE | 2022-12-14 | NUR ---
PT AMBULATING IN ROOM, NO SIGNS OF DISTRESS NOTED, RESP EVEN AND UNLABORED. PT REQUESTING NEB TX, RT CALLED TO BEDSIDE. S/O AT BEDSIDE, CALL LIGHT IN REACH, CONTINUE TO MONITOR.
--- NOTE | 2022-12-14 03:54 | NUR ---
PT RESTING IN BED WITH EYES CLOSED, NO SIGNS OF DISTRESS NOTED, RESP EVEN AND UNLABORED. CALL LIGHT IN REACH,CONTINUE TO MONITOR.
[2022-12-14 05:45] LABS: HEMOGLOBIN 11.2 g/dl (12.0-16.0); IMMATURE GRANULOCYTES 0.3 % (0.0-5.0); LYMPH% 2.8 % (15-41); MEAN CELL VOLUME 73.3 fL CALC (80.0-100.0); MEAN CORPUSCULAR HGB 22.8 pG CALC (26.0-32.0); MEAN CORPUSCULAR HGB CONC 31.1 g/dL CAL (32.0-36.0); MONO% 2.2 % (2-13); NEUT# 23.37 thou/uL (2.00-7.15); NEUT% 94.7 % (42-76); RED BLOOD COUNT 4.91 mill/uL (4.20-5.60); RED CELL DISTRI WIDTH 15.1 % (11.5-15.5)
[2022-12-14 06:15] LABS: ALKALINE PHOSPHATASE 73 u/l (38-126); ANION GAP 11 (6-22 (CALC)); BUN 12 mg/dL (7-17); BUN/CREATININE RATIO 15 (12-20 (CALC)); CARBON DIOXIDE 21 mmol/l (22-30); CHLORIDE 110 mmol/l (95-108); CREATININE 0.8 mg/dL (0.5-1.0); GFR FOR AFR.AMER. > 60 ML/MIN (>=60 (CALC)); GFR OTHER RACES > 60 ML/MIN (>=60 (CALC)); POTASSIUM 3.8 mmol/l (3.5-5.1); SGOT/AST 22 u/l (14-36); SODIUM 138 mmol/l (137-146); TOTAL PROTEIN 5.7 g/dL (6.3-8.2)
[2022-12-14 06:16] LABS: ALBUMIN 3.4 g/dL (3.2-5.0)
--- NOTE | 2022-12-14 08:00 | NUR ---
PT SITTING UP IN BED EATING BREAKFAST. ALERT AND ORIENTED X 4, PT C/O PAIN IN LOWER EXREMITIES AND LOWER BACK, MEDICATION GIVEN FOR PAIN ORDERED. O2@ 2 LITERS ON VIA NC. EXPIRATORY WHEEZING NOTED THROUGHOUT, PT USED INHALER AT THIS ALYSON. PT IV SITE TO RFA CLEAN AND INTACT WITH NS @ 80 ML/HR INFUSING. PT C/O WHITE PAINFUL PATCH ON THE ROOF OF MOUTH, WILL INFORM PROVIDER. PT HAS CALL LIGHT WITHIN REACH AND SAFETY MEASURES IN PLACE.
--- NOTE | 2022-12-14 12:00 | NUR ---
PT SITTING UP IN BED AWAKE AND ALERT, EATING LUNCH. PT C/O BILAT LEG PAIN AND LOWER BACK PAIN, AT 4/10 ON PAIN SCALE. TELE ON WITH ALL LEADS ATTACHED. PT USING BEDSIDE COMMODE FOR TOILETING NEEDS. PT HAS CALL LIGHT WITHIN REACH AND ALL SAFETY MEASURES IN PLACE.
--- NOTE | 2022-12-14 16:00 | NUR ---
PT LAYING IN BED AWAKE WITH FAMILY IN RM. PT ALERT AND OREINTED. TELE LEADS ATTACHED. PT HAS NO CHANGE IN STATUS AT THIS TIME. CALL LIGHT WITHIN REACH AND SAFETY MEASURES IN PLACE.
--- NOTE | 2022-12-14 19:25 | NUR ---
PATIENT RESTING IN BED WITH HOB ELEVATED. ASSESSMENT COMPLETE. NO SHORTNESS OF BREATH NOTED. OXYGEN VIA NC IN PLACE. NO PAIN VOICED AT THIS TIME. BED REMAINS IN LOW POSITION. CALL STOVER AND BELONGINGS IN REACH.
--- NOTE | 2022-12-14 19:37 | NUR ---
PT REQUESTS TO GO DOWN STAIRS TO SEE HER MOTHER WHO IS COMING TO [employer] PT'S DAUGHTERS THAT WERE VISITING. PT TAKEN DOWN VIA WHEEL CHAIR AND RETURNED TO ROOM 267 AFTER VISIT.
--- NOTE | 2022-12-15 01:15 | NUR ---
PATIENT RECEIVED PRN XANAX PER REQUESTED DUE TO INCREASED ANXIETY. PATIENT TOLERATED WELL. BED REMAINS IN LOW POSITION. CALL STOVER AND BELONGINGS REMAIN IN REACH.
[2022-12-15 04:06] VITALS: BP 109/65
--- NOTE | 2022-12-15 04:30 | NUR ---
PATIENT REMAINS RESTING IN BED. NO DISTRESS NOTE. NO COMPLAINTS OF PAIN. BED REMAINS IN LOW POSITION. CALL STOVER AND BELONGINGS IN REACH.
[2022-12-15 05:26] LABS: HEMATOCRIT 35.4 % (37.0-47.0); HEMOGLOBIN 11.2 g/dl (12.0-16.0); IMMATURE GRANULOCYTES 0.9 % (0.0-5.0); MEAN CELL VOLUME 72.2 fL CALC (80.0-100.0); MEAN CORPUSCULAR HGB 22.9 pG CALC (26.0-32.0); MEAN CORPUSCULAR HGB CONC 31.6 g/dL CAL (32.0-36.0); MONO% 3.1 % (2-13); NEUT# 19.82 thou/uL (2.00-7.15); RED BLOOD COUNT 4.9 mill/uL (4.20-5.60); RED CELL DISTRI WIDTH 14.9 % (11.5-15.5)
[2022-12-15 05:47] LABS: ALBUMIN 3.4 g/dL (3.2-5.0); ALKALINE PHOSPHATASE 64 u/l (38-126); BUN 13 mg/dL (7-17); BUN/CREATININE RATIO 18 (12-20 (CALC)); CHLORIDE 105 mmol/l (95-108); CREATININE 0.7 mg/dL (0.5-1.0); GFR FOR AFR.AMER. > 60 ML/MIN (>=60 (CALC)); GFR OTHER RACES > 60 ML/MIN (>=60 (CALC)); MAGNESIUM 2.1 mg/dL (1.6-2.3); POTASSIUM 3.7 mmol/l (3.5-5.1); SGOT/AST 36 u/l (14-36); SODIUM 137 mmol/l (137-146); TOTAL PROTEIN 5.6 g/dL (6.3-8.2)
[2022-12-15 05:50] LABS: ANION GAP 8 (6-22 (CALC)); CARBON DIOXIDE 28 mmol/l (22-30)
[2022-12-15 07:04] VITALS: BP 112/63
--- NOTE | 2022-12-15 08:00 | NUR ---
PT SITTING UP IN BED EATING BREAKFAST, ALERT AND OREINTED X 4 , PT HAS NO C/O PAIN AT THIS TIME. PT HAS DIMINISDHED LUNG SOUNDS THROUGHOUT. TELE ON WITH ALL LEADS ATTACHED. IV TO RFA CLEAN AND INTACT WITH NS @ 10ML/HR INFUSING. PT AMBULATES WELL TO BEDSIDE COMMODE FOR TOILETING NEEDS. K PAD REMAINS ON LOWER BACK, SOMEWHAT EFFECTIVE PER PT. PT HAS CALL LIGHT WITHIN REACH AND ALL SAFETY MEASURES IN PLACE AT THIS TIME.
[2022-12-15] MEDS ORDERED: PREDNISONE10 MG PO (10:19)
[2022-12-15 11:16] VITALS: BP 117/69
--- NOTE | 2022-12-15 12:00 | NUR ---
PT IN BED ALERT AND OREITNED. PT HAS NO C/O PAIN AT THIS ITME. NO CHANGE IN STATUS. CALL LIGHT WIHTIN REACH AND ALL SAFETY MEASURES IN PLACE. WILL CONTINUE TO MONITOR PT.
--- NOTE | 2022-12-15 13:28 | NUR ---
Discharge instructions given. Patient verbalizes understanding of same. Discharged in stable condition via Wheelchair to Home with volunteer. All belongings sent with pt.
--- NOTE | 2022-12-17 09:59 | NUR ---
Pneumonia post discharge follow up call completed today, 12/17/22. Pt states she is not doing well. She is experiencing pain and swelling. Patient was in the [facility] ED at time of call. Will follow up later.
== END 2022-12-15 13:25 | disposition home or self-care (01) ==
LOC: ED 05:43 → ED-I 08:10 → ED 08:34 → MS2 08:35
PROVIDERS: Emergency Medicine; Nurse Practitioner Family; ADMIT Internal Medicine; ATTEND Internal Medicine
DX: J18.9 Pneumonia, unspecified organism (principal); J44.0 Chronic obstructive pulmonary disease with (acute) lower respiratory infection; J44.1 Chronic obstructive pulmonary disease with (acute) exacerbation; M32.13 Lung involvement in systemic lupus erythematosus; F41.9 Anxiety disorder, unspecified; K21.9 Gastro-esophageal reflux disease without esophagitis; F17.200 Nicotine dependence, unspecified, uncomplicated; Z99.81 Dependence on supplemental oxygen; Z20.822 Contact with and (suspected) exposure to COVID-19
CPT/HCPCS: G0378; J1650

== ENCOUNTER 2022-12-17 09:58 | Emergency (ER) | payer OTHER ==
[2022-12-17] VITALS (7 sets, daily range): BP systolic 118–134; BP diastolic 81–95
[~2022-12-17] VITALS: Ht 162.6 cm; Wt 73.0 kg
[~2022-12-17 09:58] MED LIST changes: +ADVAIR DISK1 INH; +HYDROXYCHLOR200 M1 PO; +LEVOFLOXACIN500MG PO
[2022-12-17 10:40] LABS: BASO% 0.1 % (0-3); EOS% 0.7 % (0-8); HEMATOCRIT 34.2 % (37.0-47.0); HEMOGLOBIN 10.8 g/dl (12.0-16.0); IMMATURE GRANULOCYTES 0.7 % (0.0-5.0); LYMPH% 35.7 % (15-41); MEAN CELL VOLUME 70.8 fL CALC (80.0-100.0); MEAN CORPUSCULAR HGB 22.4 pG CALC (26.0-32.0); MEAN CORPUSCULAR HGB CONC 31.6 g/dL CAL (32.0-36.0); MONO% 6.9 % (2-13); NEUT# 7.69 thou/uL (2.00-7.15); NEUT% 55.9 % (42-76); RED BLOOD COUNT 4.83 mill/uL (4.20-5.60); RED CELL DISTRI WIDTH 14.5 % (11.5-15.5)
[2022-12-17 10:54] LABS: ALBUMIN 3.5 g/dL (3.2-5.0); ALKALINE PHOSPHATASE 51 u/l (38-126); ANION GAP 8 (6-22 (CALC)); BUN 17 mg/dL (7-17); BUN/CREATININE RATIO 24 (12-20 (CALC)); CARBON DIOXIDE 31 mmol/l (22-30); CHLORIDE 103 mmol/l (95-108); CREATININE 0.7 mg/dL (0.5-1.0); ETHYL ALCOHOL 0 mg/dl (0-30); GFR FOR AFR.AMER. > 60 ML/MIN (>=60 (CALC)); GFR OTHER RACES > 60 ML/MIN (>=60 (CALC)); POTASSIUM 3.9 mmol/l (3.5-5.1); SGOT/AST 44 u/l (14-36); SODIUM 138 mmol/l (137-146)
[2022-12-17 10:57] LABS: BILIRUBIN, TOTAL 0.2 mg/dL (0.02-1.3)
[2022-12-17 12:28] LABS: URINE BILIRUBIN - DIPSTICK NEGATIVE (NEGATIVE); URINE BLOOD DIPSTICK NEGATIVE (NEGATIVE); URINE COLOR YELLOW; URINE GLUCOSE - DIPSTICK NEGATIVE (NEGATIVE); URINE KETONE NEGATIVE (NEGATIVE); URINE LEUK ESTERASE NEGATIVE (NEGATIVE); URINE PH 6.5 (4.5-8.0); URINE PROTEIN - DIPSTICK NEGATIVE (NEG-TRACE); URINE SPECIFIC GRAVITY 1.025; URINE UROBILINOGEN - DIPSTICK 0.2 E.U./dL (0.2)
[2022-12-17 12:34] LABS: URINE NITRITE - DIPSTICK NEGATIVE (Negative)
== END 2022-12-17 13:00 | disposition left against medical advice (07) ==
LOC: ED 09:58
PROVIDERS: Family Medicine
DX: R52 Pain, unspecified (principal); J44.9 Chronic obstructive pulmonary disease, unspecified; F41.9 Anxiety disorder, unspecified; K21.9 Gastro-esophageal reflux disease without esophagitis; Z53.29 Procedure and treatment not carried out because of patient's decision for other reasons

== ENCOUNTER 2023-01-24 12:47 | Emergency (ER) | payer OTHER ==
[~2023-01-24] VITALS: Ht 162.6 cm; Wt 74.0 kg
[2023-01-24] VITALS (8 sets, daily range): BP systolic 96–128; BP diastolic 61–76
[2023-01-24] MEDS ORDERED: ALL DAY ALLG10 MG PO (13:58)
[2023-01-24] MEDS ORDERED: DECADRON4 MG PO (13:58)
== END 2023-01-24 15:26 | disposition home or self-care (01) ==
LOC: ED 12:47
DX: T78.40XA Allergy, unspecified, initial encounter (principal); J44.9 Chronic obstructive pulmonary disease, unspecified; F41.9 Anxiety disorder, unspecified; K21.9 Gastro-esophageal reflux disease without esophagitis; X58.XXXA Exposure to other specified factors, initial encounter; Z99.81 Dependence on supplemental oxygen

== ENCOUNTER 2023-03-17 12:54 | Emergency (ER) | payer OTHER ==
[~2023-03-17] VITALS: Ht 162.6 cm; Wt 67.8 kg
[~2023-03-17 12:54] MED LIST changes: +DECADRON4 MG PO
[2023-03-17 13:15] VITALS: BP 104/72
[2023-03-17 13:51] VITALS: BP 115/81
[2023-03-17 13:55] LABS: BASO% 0.2 % (0-3); EOS% 0.9 % (0-8); HEMATOCRIT 41.6 % (37.0-47.0); HEMOGLOBIN 12.9 g/dl (12.0-16.0); IMMATURE GRANULOCYTES 0.1 % (0.0-5.0); LYMPH% 29.8 % (15-41); MEAN CORPUSCULAR HGB 22.6 pG CALC (26.0-32.0); MONO% 11.5 % (2-13); NEUT# 4.84 thou/uL (2.00-7.15); NEUT% 57.5 % (42-76); RED BLOOD COUNT 5.7 mill/uL (4.20-5.60); RED CELL DISTRI WIDTH 15.5 % (11.5-15.5)
[2023-03-17 14:00] VITALS: BP 114/70
[2023-03-17 14:02] LABS: ANION GAP 12 (6-22 (CALC)); BILIRUBIN, TOTAL 0.2 mg/dL (0.02-1.3); BUN 10 mg/dL (7-17); BUN/CREATININE RATIO 11 (12-20 (CALC)); CARBON DIOXIDE 28 mmol/l (22-30); CHLORIDE 105 mmol/l (95-108); CREATININE 0.9 mg/dL (0.5-1.0); GFR FOR AFR.AMER. > 60 ML/MIN (>=60 (CALC)); GFR OTHER RACES > 60 ML/MIN (>=60 (CALC)); POTASSIUM 3.7 mmol/l (3.5-5.1); SGOT/AST 28 u/l (14-36); SODIUM 141 mmol/l (137-146)
[2023-03-17 14:12] LABS: ALBUMIN 4.4 g/dL (3.2-5.0); ALKALINE PHOSPHATASE 89 u/l (38-126); TOTAL PROTEIN 7.4 g/dL (6.3-8.2)
[2023-03-17 17:13] VITALS: BP 108/77
[2023-03-17] MEDS ORDERED: PREDNISONE50 MG PO (17:20)
[2023-03-17] MEDS ORDERED: DOXY-CAPS100 MG PO (17:20)
[2023-03-17 17:30] VITALS: BP 113/75
[2023-03-17 17:44] VITALS: BP 113/75
== END 2023-03-17 17:44 | disposition home or self-care (01) ==
LOC: ED 12:54
PROVIDERS: Family Medicine
DX: J45.909 Unspecified asthma, uncomplicated (principal); R07.9 Chest pain, unspecified; J44.9 Chronic obstructive pulmonary disease, unspecified; F41.9 Anxiety disorder, unspecified; K21.9 Gastro-esophageal reflux disease without esophagitis; Z99.81 Dependence on supplemental oxygen; Z20.822 Contact with and (suspected) exposure to COVID-19

== ENCOUNTER 2023-04-08 14:52 | Emergency (ER) | payer OTHER ==
[~2023-04-08] VITALS: Ht 162.6 cm; Wt 71.8 kg
[~2023-04-08 14:52] MED LIST changes: +DOXY-CAPS100 MG PO
[2023-04-08] MEDS ORDERED: TRAMADOL HYDROC50 M1 PO (16:12)
[2023-04-08 16:50] VITALS: BP 102/65
== END 2023-04-08 17:02 | disposition home or self-care (01) ==
LOC: ED 14:52
DX: S93.402A Sprain of unspecified ligament of left ankle, initial encounter (principal); J44.9 Chronic obstructive pulmonary disease, unspecified; F41.9 Anxiety disorder, unspecified; K21.9 Gastro-esophageal reflux disease without esophagitis; X50.0XXA Overexertion from strenuous movement or load, initial encounter; Y92.59 Other trade areas as the place of occurrence of the external cause; Z99.81 Dependence on supplemental oxygen

== ENCOUNTER 2023-04-27 10:16 | Emergency (ER) | payer OTHER ==
[~2023-04-27] VITALS: Ht 162.6 cm; Wt 72.5 kg
[2023-04-27 12:18] VITALS: BP 106/73
== END 2023-04-27 12:34 | disposition home or self-care (01) ==
LOC: ED 10:16
DX: S93.402A Sprain of unspecified ligament of left ankle, initial encounter (principal); J44.9 Chronic obstructive pulmonary disease, unspecified; F41.9 Anxiety disorder, unspecified; K21.9 Gastro-esophageal reflux disease without esophagitis; W19.XXXA Unspecified fall, initial encounter; Y92.009 Unspecified place in unspecified non-institutional (private) residence as the place of occurrence of the external cause; Z99.81 Dependence on supplemental oxygen

== ENCOUNTER 2023-08-17 10:50 | Emergency (ER) | payer OTHER ==
[~2023-08-17] VITALS: Ht 162.6 cm; Wt 74.0 kg
[2023-08-17] VITALS (21 sets, daily range): BP systolic 100–119; BP diastolic 64–82
[2023-08-17 11:24] LABS: BASO% 0.2 % (0-3); EOS% 1.6 % (0-8); HEMATOCRIT 36.5 % (37.0-47.0); HEMOGLOBIN 11.7 g/dl (12.0-16.0); IMMATURE GRANULOCYTES 0.3 % (0.0-5.0); LYMPH% 36.3 % (15-41); MEAN CELL VOLUME 71.9 fL CALC (80.0-100.0); MEAN CORPUSCULAR HGB CONC 32.1 g/dL CAL (32.0-36.0); MONO% 11.4 % (2-13); NEUT# 3.13 thou/uL (2.00-7.15); NEUT% 50.2 % (42-76); RED BLOOD COUNT 5.08 mill/uL (4.20-5.60); RED CELL DISTRI WIDTH 14.4 % (11.5-15.5)
[2023-08-17 11:56] LABS: ALBUMIN 3.9 g/dL (3.2-5.0); ALKALINE PHOSPHATASE 79 u/l (38-126); ANION GAP 12 (6-22 (CALC)); BUN 11 mg/dL (7-17); BUN/CREATININE RATIO 16 (12-20 (CALC)); CARBON DIOXIDE 22 mmol/l (22-30); CHLORIDE 107 mmol/l (95-108); CREATININE 0.7 mg/dL (0.5-1.0); GFR FOR AFR.AMER. > 60 ML/MIN (>=60 (CALC)); GFR OTHER RACES > 60 ML/MIN (>=60 (CALC)); POTASSIUM 4.2 mmol/l (3.5-5.1); SGOT/AST 32 u/l (14-36); SODIUM 138 mmol/l (137-146); TOTAL PROTEIN 6.5 g/dL (6.3-8.2)
[2023-08-17 11:58] LABS: BILIRUBIN, TOTAL 0.2 mg/dL (0.02-1.3)
[2023-08-17] MEDS ORDERED: ESCITALOPRAM OX10 MG PO (13:05)
[2023-08-17] MEDS ORDERED: FOLIC ACID1 M1 (13:05)
[2023-08-17] MEDS ORDERED: MIRTAZAPINE45 M2 PO (13:07)
[2023-08-17] MEDS ORDERED: ALPRAZOLAM1 MG PO (13:09)
[2023-08-17] MEDS ORDERED: PREDNISONE50 MG PO (15:12)
== END 2023-08-17 16:04 | disposition home or self-care (01) | DRG 313 ==
LOC: ED 10:50
PROVIDERS: Family Medicine
DX: R07.89 Other chest pain (principal); J44.9 Chronic obstructive pulmonary disease, unspecified; I25.10 Atherosclerotic heart disease of native coronary artery without angina pectoris; I25.2 Old myocardial infarction; Z99.81 Dependence on supplemental oxygen

== ENCOUNTER 2023-08-25 08:32 | Observation (INO) | payer OTHER ==
[~2023-08-25] VITALS: Ht 162.6 cm; Wt 74.0 kg
[2023-08-25] VITALS (20 sets, daily range): BP systolic 101–120; BP diastolic 61–89
[~2023-08-25 08:32] MED LIST changes: +ALPRAZOLAM1 MG PO; +ESCITALOPRAM OX10 MG PO; +FOLIC ACID1 M1; +MIRTAZAPINE45 M2 PO
--- NOTE | 2023-08-25 08:50 | NUR ---
PT TRIAGE TO RM 6 VIA W/C, C/O ON GOING LT SIDE CP SINCE 08/17/23 AND FLARED UP LUPUS; PAIN 05/25; EKG OBTAINED; PT CHANGED INTO A GOWN, ORIENT TO ROOM AND CALL STOVER; PT AWARE OF CRITICAL PT AT HAND.
[2023-08-25 09:49] LABS: BASO% 0.4 % (0-3); EOS% 1.6 % (0-8); HEMATOCRIT 36.7 % (37.0-47.0); IMMATURE GRANULOCYTES 0.3 % (0.0-5.0); LYMPH% 45.6 % (15-41); MEAN CELL VOLUME 71.3 fL CALC (80.0-100.0); MEAN CORPUSCULAR HGB 23.3 pG CALC (26.0-32.0); MEAN CORPUSCULAR HGB CONC 32.7 g/dL CAL (32.0-36.0); MONO% 11.8 % (2-13); NEUT# 3.19 thou/uL (2.00-7.15); NEUT% 40.3 % (42-76); RED BLOOD COUNT 5.15 mill/uL (4.20-5.60); RED CELL DISTRI WIDTH 14.4 % (11.5-15.5)
[2023-08-25 10:04] LABS: HCG SERUM/URINE (NEG/POS) NEGATIVE (NEGATIVE)
[2023-08-25 10:05] LABS: ALBUMIN 4.2 g/dL (3.2-5.0); ALKALINE PHOSPHATASE 84 u/l (38-126); ANION GAP 11 (6-22 (CALC)); BILIRUBIN, TOTAL 0.2 mg/dL (0.02-1.3); BUN 12 mg/dL (7-17); BUN/CREATININE RATIO 16 (12-20 (CALC)); CARBON DIOXIDE 25 mmol/l (22-30); CHLORIDE 105 mmol/l (95-108); CREATININE 0.8 mg/dL (0.5-1.0); GFR FOR AFR.AMER. > 60 ML/MIN (>=60 (CALC)); GFR OTHER RACES > 60 ML/MIN (>=60 (CALC)); SGOT/AST 22 u/l (14-36); SODIUM 137 mmol/l (137-146); TOTAL PROTEIN 6.7 g/dL (6.3-8.2)
[2023-08-25 10:08] LABS: PROTHROMBIN TIME 9.9 SECONDS (9.0-12.5)
[2023-08-25 10:10] LABS: CHOLESTEROL HDL RATIO 2.4 (<4.4 (CALC))
--- NOTE | 2023-08-25 10:35 | NUR ---
PT MEDICATED PER EMAR TOLERATED WELL, IV STARTED, VITALS STABLE, NO DISTRESS NOTED; PT AWARE OF CT; CALL STOVER IN REACH.
--- NOTE | 2023-08-25 11:35 | NUR ---
PT OFF TO CT VIA COAT OPERATOR INSULATOR IN STABLE CONDITION
--- NOTE | 2023-08-25 12:03 | NUR ---
PT RETURNED FROM CT, PT RESTING IN BED, CALL LIGTH WITHIN REACH, PT DENIES ANY NEEDS AT THIS TIME
--- NOTE | 2023-08-25 12:40 | NUR ---
Reassessment of patient completed. No distress noted. PT RESTING IN BED, CALL LIGHT WITHIN REACH, PT DENIES ANY NEEDS AT THIS TIME
--- NOTE | 2023-08-25 13:28 | NUR ---
PT UP TO BATHROOM, PT BACK IN BED, CALL LIGHT WITHIN REACH
[2023-08-25 13:52] LABS: URINE BILIRUBIN - DIPSTICK Negative (NEGATIVE); URINE BLOOD DIPSTICK Negative (NEGATIVE); URINE GLUCOSE - DIPSTICK Negative (NEGATIVE); URINE KETONE Negative (NEGATIVE); URINE LEUK ESTERASE Negative (NEGATIVE); URINE NITRITE - DIPSTICK Negative (Negative); URINE PROTEIN - DIPSTICK Negative (NEG-TRACE); URINE SPECIFIC GRAVITY 1.015; URINE UROBILINOGEN - DIPSTICK 0.2 E.U./dL (0.2)
[2023-08-25 13:53] LABS: URINE COLOR Yellow
[2023-08-25] MEDS ORDERED: METHOTREXATE2.5 MG PO (13:59)
--- NOTE | 2023-08-25 14:38 | NUR ---
REASSESSMENT OF PT NO DISTRESS NOTED, PT AWARE OF BEING ADMITTED; REQUESTING MORE JUICE WHICH WAS GIVEN.
--- NOTE | 2023-08-25 14:40 | NUR ---
CALLED [facility] GAVE TRANSFER OF CARE REPORT TO RN. CORDERO PT TO BE TRANFERED TO [facility] ROOM 291 ON [address]
--- NOTE | 2023-08-25 15:30 | NUR ---
PT TRANSPORTED TO [facility] ROOM 291 VIA WHEELCHAIR, PT SITTING IN BED EATTING LUNCH, PT TOLERATED TRANSPORT WELL, PT TOOK ALL HER BELONGINGS WITH HER DURING TRANSPORT
--- NOTE | 2023-08-25 15:31 | NUR ---
PT ARRIVED VIA WC WITH VAMP LINER. ORIENTATED PT TO ROOM AND CALL BEL SYSTEM. ADMISSION ASSESSMENT COMPLETED. PT WHEEZING NOTED WITH EXHALATION. PT A&OX3. PT STATES SENSATION TO THE LEFT SIDE OF BODY IS DIFFERENT. IV PATENT/FLUSHED. PT STATES PINKY GOLD RING IS MISSING. ER NOTIFIED. INVENTORY SHEET COMPLETED. DRINKS AND SANDWICH PROVIDED TO PT. PT ABLE TO OBEY COMMANDS. FALL/SAFTEY PRECAUTION IN PLACE. CALL LIGHT WITHIN REACH
--- NOTE | 2023-08-25 16:09 | NUR ---
PT PINKY GOLD RING FOUND. ER NURSE RADHA PERSONALLY GAVE RING TO PT.
[2023-08-25] MEDS ORDERED: CLARITIN10 M1 PO (16:49)
[2023-08-25] MEDS ORDERED: PRENATA3 PO (16:50)
[2023-08-25] MEDS ORDERED: SINGULAIR10 MG PO ×2 (16:50→16:58)
[2023-08-25] MEDS ORDERED: PREDNISONE20 MG PO (16:55)
[2023-08-25] MEDS ORDERED: PREDNISONE10 MG PO (16:55)
[2023-08-25] MEDS ORDERED: ADVAIR DISK1 INH (16:57)
--- NOTE | 2023-08-25 20:00 | NUR ---
RECEIVED REPORT NURSE KELSEY MORALES RESTING IN BED, WATCHING TV, IV ON LFA G 22 NS @ 80CC/HR ON TELEMETRY ST 107, KELSEY C/O CONSTIPATION MOM GIVEN, PATIENT ONGOING MAGNESIUM INFUSION, KELSEY NIH 1, CALL LIGHT IN REACH BREATHING UNLABORED.
--- NOTE | 2023-08-25 20:32 | NUR ---
CALL FROM ED [facility] REGARDING PATIENT TACHYCARDIC SUSTAINIGN 120'S. PATIENT UP AND WALKING FROM BATHROOM, NOTIFIED PRIMARY RN Jalen CASANOVA
--- NOTE | 2023-08-26 | NUR ---
KELSEY RESTING IN BED REMAINS ON TELEMTERY SR 97, NOT IN DISTRESS, BREATHING UNLABORED, CALL LIGHT IN REACH.
[2023-08-26 00:33] VITALS: BP 102/65
[2023-08-26 04:48] VITALS: BP 105/65
[2023-08-26 07:02] VITALS: BP 103/64
[2023-08-26 07:16] LABS: BASO% 0.1 % (0-3); HEMATOCRIT 35.9 % (37.0-47.0); HEMOGLOBIN 11.6 g/dl (12.0-16.0); IMMATURE GRANULOCYTES 0.3 % (0.0-5.0); LYMPH% 8.3 % (15-41); MEAN CELL VOLUME 71.7 fL CALC (80.0-100.0); MEAN CORPUSCULAR HGB 23.2 pG CALC (26.0-32.0); MEAN CORPUSCULAR HGB CONC 32.3 g/dL CAL (32.0-36.0); MONO% 6.2 % (2-13); NEUT# 10.83 thou/uL (2.00-7.15); NEUT% 85.1 % (42-76); RED BLOOD COUNT 5.01 mill/uL (4.20-5.60); RED CELL DISTRI WIDTH 14.5 % (11.5-15.5)
--- NOTE | 2023-08-26 07:33 | NUR ---
PT AOX3, NIH=1 FOR SENSATION TO LEFT HAND, LEFT FOREARM, LEFT FOOT. DECRIES LEFT FOOT AT "FEELING LIKE ITS ASLEEP" PT ALSO COMPLAINS OF PAIN TO KEFT SIDE OF HEAD AND LEFT EYE DISCRIBED "ACHING" GIVEN A SCORE OF 8 ON A 0-10 PAON SCALE.
[2023-08-26 07:46] LABS: ALBUMIN 3.7 g/dL (3.2-5.0); ALKALINE PHOSPHATASE 81 u/l (38-126); ANION GAP 13 (6-22 (CALC)); BILIRUBIN, TOTAL 0.2 mg/dL (0.02-1.3); BUN 9 mg/dL (7-17); BUN/CREATININE RATIO 15 (12-20 (CALC)); CARBON DIOXIDE 22 mmol/l (22-30); CHLORIDE 105 mmol/l (95-108); CREATININE 0.6 mg/dL (0.5-1.0); GFR FOR AFR.AMER. > 60 ML/MIN (>=60 (CALC)); GFR OTHER RACES > 60 ML/MIN (>=60 (CALC)); MAGNESIUM 2.4 mg/dL (1.6-2.3); POTASSIUM 4.4 mmol/l (3.5-5.1); SGOT/AST 31 u/l (14-36); SODIUM 136 mmol/l (137-146); TOTAL PROTEIN 5.8 g/dL (6.3-8.2)
[2023-08-26 11:13] VITALS: BP 101/61
[2023-08-26 15:20] VITALS: BP 111/71
--- NOTE | 2023-08-26 19:39 | NUR ---
NOTIFIED DR MOISE PT WANTED TO LEAVE AMA.
--- NOTE | 2023-08-26 19:48 | NUR ---
Patient decides to leave AMA. Multiple attempts made to ecourage patient to remain here for continued treatment. Explained to patient all risks of leaving against medical advice including . Pt verbalized understanding of all risks. Pt also encouraged to return to [facility] at any time, especially if symptoms continue or become worse. Pt verbalized understanding. Discharge instructions given. Patient verbalizes understanding of same. Discharged in stable condition via Ambulatory to Home with friend. All belongings sent with pt.
== END 2023-08-26 19:48 | disposition left against medical advice (07) ==
LOC: ED 08:32 → ED-I 13:10 → ED 13:34 → ICU 13:35 → MS2 13:36
PROVIDERS: Family Medicine; ADMIT Student in an Organized Health Care Education/Training Program; ATTEND Student in an Organized Health Care Education/Training Program
DX: R07.9 Chest pain, unspecified (principal); R20.0 Anesthesia of skin; M32.9 Systemic lupus erythematosus, unspecified; J44.1 Chronic obstructive pulmonary disease with (acute) exacerbation; R91.1 Solitary pulmonary nodule; F41.9 Anxiety disorder, unspecified; K21.9 Gastro-esophageal reflux disease without esophagitis; I25.2 Old myocardial infarction; Z99.81 Dependence on supplemental oxygen; Z20.822 Contact with and (suspected) exposure to COVID-19
CPT/HCPCS: G0378; J1650; J3475; Q9967

== ENCOUNTER 2023-09-01 19:00 | Observation (INO) | payer OTHER ==
[~2023-09-01] VITALS: Ht 162.6 cm; Wt 68.0 kg
[~2023-09-01 19:00] MED LIST changes: +CLARITIN10 M1 PO; +METHOTREXATE2.5 MG PO
[2023-09-01 19:11] VITALS: BP 132/91
[2023-09-01 19:30] VITALS: BP 120/80
[2023-09-01 20:30] VITALS: BP 104/71
[2023-09-01 20:39] LABS: BASO% 0.1 % (0-3); EOS% 0.1 % (0-8); HEMATOCRIT 35.6 % (37.0-47.0); HEMOGLOBIN 11.3 g/dl (12.0-16.0); IMMATURE GRANULOCYTES 0.3 % (0.0-5.0); LYMPH% 6.6 % (15-41); MEAN CELL VOLUME 71.8 fL CALC (80.0-100.0); MEAN CORPUSCULAR HGB 22.8 pG CALC (26.0-32.0); MEAN CORPUSCULAR HGB CONC 31.7 g/dL CAL (32.0-36.0); MONO% 7.9 % (2-13); NEUT# 8.73 thou/uL (2.00-7.15); RED BLOOD COUNT 4.96 mill/uL (4.20-5.60); RED CELL DISTRI WIDTH 14.7 % (11.5-15.5)
[2023-09-01 20:57] LABS: ALBUMIN 4.4 g/dL (3.2-5.0); ALKALINE PHOSPHATASE 88 u/l (38-126); BUN 12 mg/dL (7-17); BUN/CREATININE RATIO 15 (12-20 (CALC)); CARBON DIOXIDE 22 mmol/l (22-30); CHLORIDE 105 mmol/l (95-108); CREATININE 0.8 mg/dL (0.5-1.0); GFR FOR AFR.AMER. > 60 ML/MIN (>=60 (CALC)); GFR OTHER RACES > 60 ML/MIN (>=60 (CALC)); SGOT/AST 28 u/l (14-36); SODIUM 134 mmol/l (137-146)
[2023-09-01 20:58] LABS: ANION GAP 10 (6-22 (CALC)); BILIRUBIN, TOTAL 0.3 mg/dL (0.02-1.3); POTASSIUM 3.4 mmol/l (3.5-5.1); TOTAL PROTEIN 7.1 g/dL (6.3-8.2)
[2023-09-01 21:00] VITALS: BP 106/69
[2023-09-01 21:30] VITALS: BP 111/67
[2023-09-02] VITALS (7 sets, daily range): BP systolic 102–119; BP diastolic 64–77
[2023-09-03 00:06] VITALS: BP 102/52
[2023-09-03 04:42] VITALS: BP 112/69
[2023-09-03 04:51] LABS: BASO% 0.1 % (0-3); HEMATOCRIT 35.9 % (37.0-47.0); HEMOGLOBIN 11.7 g/dl (12.0-16.0); IMMATURE GRANULOCYTES 0.3 % (0.0-5.0); LYMPH% 8.9 % (15-41); MEAN CELL VOLUME 71.1 fL CALC (80.0-100.0); MEAN CORPUSCULAR HGB 23.2 pG CALC (26.0-32.0); MEAN CORPUSCULAR HGB CONC 32.6 g/dL CAL (32.0-36.0); MONO% 10.6 % (2-13); NEUT# 5.5 thou/uL (2.00-7.15); NEUT% 80.1 % (42-76); RED BLOOD COUNT 5.05 mill/uL (4.20-5.60); RED CELL DISTRI WIDTH 14.3 % (11.5-15.5)
[2023-09-03 05:05] LABS: ALBUMIN 3.9 g/dL (3.2-5.0); ALKALINE PHOSPHATASE 72 u/l (38-126); BILIRUBIN, TOTAL 0.2 mg/dL (0.02-1.3); BUN 11 mg/dL (7-17); BUN/CREATININE RATIO 16 (12-20 (CALC)); CHLORIDE 104 mmol/l (95-108); CREATININE 0.7 mg/dL (0.5-1.0); GFR FOR AFR.AMER. > 60 ML/MIN (>=60 (CALC)); GFR OTHER RACES > 60 ML/MIN (>=60 (CALC)); MAGNESIUM 2.2 mg/dL (1.6-2.3); SGOT/AST 26 u/l (14-36); SODIUM 137 mmol/l (137-146); TOTAL PROTEIN 6.1 g/dL (6.3-8.2)
[2023-09-03 05:08] LABS: ANION GAP 8 (6-22 (CALC)); CARBON DIOXIDE 29 mmol/l (22-30); POTASSIUM 4.3 mmol/l (3.5-5.1)
[2023-09-03 07:21] VITALS: BP 111/71
[2023-09-03 10:25] VITALS: BP 116/88
[2023-09-03 15:23] VITALS: BP 139/84
[2023-09-03 19:06] VITALS: BP 140/90
[2023-09-04] VITALS (8 sets, daily range): BP systolic 98–131; BP diastolic 53–85
[2023-09-04 06:47] LABS: HEMATOCRIT 34.6 % (37.0-47.0); HEMOGLOBIN 11.1 g/dl (12.0-16.0); IMMATURE GRANULOCYTES 0.3 % (0.0-5.0); LYMPH% 15.7 % (15-41); MEAN CELL VOLUME 71.3 fL CALC (80.0-100.0); MEAN CORPUSCULAR HGB 22.9 pG CALC (26.0-32.0); MEAN CORPUSCULAR HGB CONC 32.1 g/dL CAL (32.0-36.0); MONO% 16.3 % (2-13); NEUT# 4.36 thou/uL (2.00-7.15); NEUT% 67.7 % (42-76); RED BLOOD COUNT 4.85 mill/uL (4.20-5.60); RED CELL DISTRI WIDTH 14.6 % (11.5-15.5)
[2023-09-04 07:07] LABS: ALBUMIN 3.4 g/dL (3.2-5.0); ALKALINE PHOSPHATASE 69 u/l (38-126); ANION GAP 8 (6-22 (CALC)); BUN 13 mg/dL (7-17); BUN/CREATININE RATIO 17 (12-20 (CALC)); CARBON DIOXIDE 25 mmol/l (22-30); CHLORIDE 109 mmol/l (95-108); CREATININE 0.8 mg/dL (0.5-1.0); GFR FOR AFR.AMER. > 60 ML/MIN (>=60 (CALC)); GFR OTHER RACES > 60 ML/MIN (>=60 (CALC)); POTASSIUM 4.4 mmol/l (3.5-5.1); SGOT/AST 21 u/l (14-36); SODIUM 137 mmol/l (137-146); TOTAL PROTEIN 5.6 g/dL (6.3-8.2)
[2023-09-04 07:08] LABS: BILIRUBIN, TOTAL 0.1 mg/dL (0.02-1.3)
[2023-09-05] VITALS (11 sets, daily range): BP systolic 103–133; BP diastolic 47–78
[2023-09-05 07:26] LABS: HEMATOCRIT 34.2 % (37.0-47.0); IMMATURE GRANULOCYTES 0.4 % (0.0-5.0); MEAN CELL VOLUME 71.7 fL CALC (80.0-100.0); MEAN CORPUSCULAR HGB 23.1 pG CALC (26.0-32.0); MEAN CORPUSCULAR HGB CONC 32.2 g/dL CAL (32.0-36.0); MONO% 14.5 % (2-13); NEUT# 3.05 thou/uL (2.00-7.15); NEUT% 59.1 % (42-76); RED BLOOD COUNT 4.77 mill/uL (4.20-5.60); RED CELL DISTRI WIDTH 14.7 % (11.5-15.5)
[2023-09-05 07:32] LABS: ALBUMIN 3.2 g/dL (3.2-5.0); ALKALINE PHOSPHATASE 61 u/l (38-126); ANION GAP 9 (6-22 (CALC)); BUN 15 mg/dL (7-17); BUN/CREATININE RATIO 19 (12-20 (CALC)); CARBON DIOXIDE 24 mmol/l (22-30); CHLORIDE 106 mmol/l (95-108); CREATININE 0.8 mg/dL (0.5-1.0); GFR FOR AFR.AMER. > 60 ML/MIN (>=60 (CALC)); GFR OTHER RACES > 60 ML/MIN (>=60 (CALC)); POTASSIUM 4.3 mmol/l (3.5-5.1); SGOT/AST 28 u/l (14-36); SODIUM 135 mmol/l (137-146); TOTAL PROTEIN 5.4 g/dL (6.3-8.2)
[2023-09-05 07:45] LABS: BILIRUBIN, TOTAL 0.3 mg/dL (0.02-1.3)
[2023-09-05 23:10] LABS: MAGNESIUM 2.1 mg/dL (1.6-2.3)
[2023-09-06 04:42] VITALS: BP 92/52
[2023-09-06 07:00] LABS: HEMATOCRIT 36.8 % (37.0-47.0); HEMOGLOBIN 11.9 g/dl (12.0-16.0); IMMATURE GRANULOCYTES 0.1 % (0.0-5.0); MEAN CORPUSCULAR HGB CONC 32.3 g/dL CAL (32.0-36.0); MONO% 10.3 % (2-13); NEUT# 4.03 thou/uL (2.00-7.15); NEUT% 59.6 % (42-76); RED BLOOD COUNT 5.18 mill/uL (4.20-5.60); RED CELL DISTRI WIDTH 14.5 % (11.5-15.5)
[2023-09-06 07:08] LABS: ALKALINE PHOSPHATASE 58 u/l (38-126); BILIRUBIN, TOTAL 0.3 mg/dL (0.02-1.3); CHLORIDE 107 mmol/l (95-108); SODIUM 137 mmol/l (137-146)
[2023-09-06 07:09] LABS: ALBUMIN 3.4 g/dL (3.2-5.0); BUN 14 mg/dL (7-17); BUN/CREATININE RATIO 18 (12-20 (CALC)); CREATININE 0.7 mg/dL (0.5-1.0); GFR FOR AFR.AMER. > 60 ML/MIN (>=60 (CALC)); GFR OTHER RACES > 60 ML/MIN (>=60 (CALC)); SGOT/AST 26 u/l (14-36); TOTAL PROTEIN 5.7 g/dL (6.3-8.2)
[2023-09-06 07:10] LABS: ANION GAP 7 (6-22 (CALC)); CARBON DIOXIDE 28 mmol/l (22-30); MAGNESIUM 2.1 mg/dL (1.6-2.3); POTASSIUM 5.1 mmol/l (3.5-5.1)
[2023-09-06 07:23] VITALS: BP 101/63
[2023-09-06 10:54] VITALS: BP 118/86
[2023-09-06] MEDS ORDERED: PREDNISONE10 MG PO (13:01)
== END 2023-09-06 13:57 | disposition home or self-care (01) ==
LOC: ED 19:00 → ED-I 22:25 → ED 23:28 → MS2 23:29
PROVIDERS: Emergency Medicine; Nurse Practitioner Family; ADMIT Student in an Organized Health Care Education/Training Program; ATTEND Student in an Organized Health Care Education/Training Program
DX: J45.41 Moderate persistent asthma with (acute) exacerbation (principal); J10.1 Influenza due to other identified influenza virus with other respiratory manifestations; R11.2 Nausea with vomiting, unspecified; J44.9 Chronic obstructive pulmonary disease, unspecified; I25.10 Atherosclerotic heart disease of native coronary artery without angina pectoris; K21.9 Gastro-esophageal reflux disease without esophagitis; F41.9 Anxiety disorder, unspecified; I25.2 Old myocardial infarction; Z87.891 Personal history of nicotine dependence; Z20.822 Contact with and (suspected) exposure to COVID-19
CPT/HCPCS: A9541; G0378; J1650; J3475; Q9967

== ENCOUNTER 2024-02-01 14:40 | Observation (INO) | payer OTHER ==
[~2024-02-01] VITALS: Ht 162.6 cm; Wt 82.0 kg
[2024-02-01] VITALS (24 sets, daily range): BP systolic 92–116; BP diastolic 55–74
[~2024-02-01 14:40] MED LIST changes: +ASPIRIN81 MG PO; +CLARITIN10 M2 PO; +DULOXETINE HCL30 MG PO; +IMITREX50 MG PO; +METHOTREXATE S2.5 M1 PO; +MIRTAZAPINE30 M2 PO; +NEURONTIN300 MG PO; +PERCOCET 5/321 COMBO PO; +PHENERGAN25 MG RE; +PROMETHAZINE HY25 M1 PO; +ROCEPHIN 1 GM1 GM IM; +WIXELA INHUB 501 AER IN; +XANAX1 MG PO
--- NOTE | 2024-02-01 14:45 | NUR ---
PT BROUGHT BACK TO ER ROOM 6 VIA WHEELCHAIR
[2024-02-01 15:11] LABS: BASO% 0.4 % (0-3); EOS% 1.4 % (0-8); HEMATOCRIT 37.1 % (37.0-47.0); HEMOGLOBIN 11.7 g/dl (12.0-16.0); IMMATURE GRANULOCYTES 0.2 % (0.0-5.0); LYMPH% 46.6 % (15-41); MEAN CELL VOLUME 72.6 fL CALC (80.0-100.0); MEAN CORPUSCULAR HGB 22.9 pG CALC (26.0-32.0); MEAN CORPUSCULAR HGB CONC 31.5 g/dL CAL (32.0-36.0); NEUT# 2.49 thou/uL (2.00-7.15); NEUT% 44.4 % (42-76); RED BLOOD COUNT 5.11 mill/uL (4.20-5.60); RED CELL DISTRI WIDTH 15.2 % (11.5-15.5)
[2024-02-01 15:24] LABS: INTERNATIONAL NORMALIZED RATIO 1.1 RATIO (0.7-1.3)
[2024-02-01 15:26] LABS: PROTHROMBIN TIME 10.4 SECONDS (9.0-12.5)
[2024-02-01 15:27] LABS: ALKALINE PHOSPHATASE 70 u/l (38-126); ANION GAP 7 (6-22 (CALC)); BUN 11 mg/dL (7-17); BUN/CREATININE RATIO 13 (12-20 (CALC)); CALCULATED LDLCHOLESTEROL 68 mg/dL (62-129 (CALC)); CARBON DIOXIDE 25 mmol/l (22-30); CHLORIDE 111 mmol/l (95-108); CHOLESTEROL HDL RATIO 2.5 (<4.4 (CALC)); CREATININE 0.8 mg/dL (0.5-1.0); ESTIMATED GFR 94 ML/MIN (>=90 (CALC)); HDL CHOLESTEROL 57 mg/dL (39.0-59.0); POTASSIUM 4.1 mmol/l (3.5-5.1); SGOT/AST 29 u/l (14-36); SODIUM 138 mmol/l (137-146); TOTAL CHOLESTEROL 141 mg/dl (0-199); TOTAL PROTEIN 6.9 g/dL (6.3-8.2); TOTAL TRIGLYCERIDES 78 mg/dl (0-149); VLDL CHOLESTROL 16 mg/dl (1-41 (CALC))
[2024-02-01 15:28] LABS: BILIRUBIN, TOTAL 0.4 mg/dL (0.02-1.3)
[2024-02-01] MEDS ORDERED: SODIUM CHLORIDE 0.9% 1,000 ML IV PRN (19:15)
[2024-02-01] MEDS ORDERED: DEXTROSE 250 ML IV PRN (19:15)
[2024-02-01] MEDS ORDERED: ACETAMINOPHEN 325 MG/TAB PO PRN (19:15)
[2024-02-01] MEDS ORDERED: MAGNESIUM HYDROXIDE 30 ML UDC PO PRN (19:15)
[2024-02-01] MEDS ORDERED: IPRATROPIUM-Albuterol 0.5MG-2.5MG/3 ML NEB PRN (19:20)
[2024-02-01] MEDS ORDERED: GABAPENTIN 300 MG/CAP PO SCH (21:00)
[2024-02-01] MEDS ORDERED: MONTELUKAST SODIUM 10 MG/TAB PO SCH (21:00)
[2024-02-01] MEDS ORDERED: ENOXAPARIN SODIUM 40 MG/0.4 ML SYR SC SCH (21:00)
[2024-02-01] MEDS ORDERED: ATORVASTATIN CALCIUM 40 MG/TAB PO SCH (21:00)
--- NOTE | 2024-02-01 23:01 | NUR ---
PATIENT UP TO FLOOR VIA WHEELCHAIR
[2024-02-01] MEDS ORDERED: ALPRAZolam 1 MG/TAB PO PRN (23:20)
[2024-02-01] MEDS ORDERED: MIRTAZAPINE 15 MG/TAB PO SCH (23:20)
--- NOTE | 2024-02-02 | NUR ---
PATIENT ADMITTED FROM ER VIA WHEELCHAIR WITH ER STAFF IN ATTENDANCE. -PATIENT ALERT AND ORIENTEDX3. PATIENT INDEPENDANT TO THE BR TO VOID. PATIENT WITH STEADY GAIT AND RETURNED TO THE BED. NIH AT THIS TIME IS 0. PATIENT WITH GOOD SENSATION TO FACE AND LEFT ARM AT THIS TIME. NO DIFFICULTY WITH SPEECH OR SWALLOWING. NO NUMBNESS OR TINGLING. HAND GRASP ARE BASICALLY THE SAME BUT THE PATIENT STATES THAT SHE THINKS THAT THE LEFT IS SLIGHTLY LESS. MOVEMENT OF ALL EXTREMITIES WNL. TELE MONITOR IN PLACE-SR-80'S. SALINE LOCK TO RAC INTACT AND HEALTHY WITH GOOD BLOOD RETURN WHEN FLUSHED. IVF HUNG ORDERED. NS PATENT AND INFUSING AT 80CC/HR. DENIES ANY DIFFICULTY WITH URINATION. STATES LAST BM WAS 01/31. LUNGS ARE CLEAR. ABD SOFT WITH ACTIVE BS. NO PERIPHERAL EDEMA NOTED. PATIENT STATES THAT SHE WEARS O2 AT HOME AT NIGHT AT 2LPM. PROVIDED O2 VIA NASAL CANNULA PER REQUEST. MEDICATED WITH XANAX 1MG PO FOR ANXIETY AND SLEEP. PATIENT EATING MEAL FROM FAMILY WITHOUT ANY DIFFICULTY. ORIENTED TO ROOM AND SURROUNDINGS. INSTRUCTED ON USE OF NURSE CALL LIGHT SYSTEM. SAFTY PRECAUTIONS REINFORCED. CALL LIGHT IN REACH.WILL CONT TO MONITOR.
--- NOTE | 2024-02-02 04:00 | NUR ---
PATIENT RESTING IN BED WITH O2 VIA NASAL CANNULA IN PLACE AT 2LPM. EYES ARE CLOSED AND RESPS ARE EVEN AND UNLABORED. TELE MONITOR IN PLACE AND READING SR-80'S. IVF NS PATENT AND INFUSING AT 80CC/HR VIA RAC SITE. CALL LIGHT IN REACH. WILL CONT TO MONITOR.
[2024-02-02 04:02] VITALS: BP 96/56
[2024-02-02 05:41] LABS: CHOLESTEROL HDL RATIO 2.4 (<4.4 (CALC)); MAGNESIUM 1.8 mg/dL (1.6-2.3)
--- NOTE | 2024-02-02 07:00 | NUR ---
SHIFT CHANGE REPORT, PT SLEEPING COMFORTABLE, BREATHING EVEN AND NON LABORED, NO SIGN DISCOMFORT, IVF INFUSING, TELE MONITOR IN PLACE, CALL STOVER IN REACH AND BED LOCKED IN LOWEST POSITION.
[2024-02-02 07:33] LABS: BASO% 0.3 % (0-3); EOS% 1.8 % (0-8); HEMATOCRIT 35.3 % (37.0-47.0); IMMATURE GRANULOCYTES 0.3 % (0.0-5.0); LYMPH% 55.1 % (15-41); MEAN CELL VOLUME 72.3 fL CALC (80.0-100.0); MEAN CORPUSCULAR HGB 22.5 pG CALC (26.0-32.0); MEAN CORPUSCULAR HGB CONC 31.2 g/dL CAL (32.0-36.0); MONO% 9.4 % (2-13); NEUT# 2.05 thou/uL (2.00-7.15); NEUT% 33.1 % (42-76); RED BLOOD COUNT 4.88 mill/uL (4.20-5.60); RED CELL DISTRI WIDTH 15.1 % (11.5-15.5)
[2024-02-02 07:35] LABS: ALBUMIN 3.4 g/dL (3.2-5.0); BILIRUBIN, TOTAL 0.2 mg/dL (0.02-1.3); CREATININE 0.8 mg/dL (0.5-1.0); POTASSIUM 4.3 mmol/l (3.5-5.1); TOTAL PROTEIN 5.8 g/dL (6.3-8.2)
[2024-02-02 08:16] VITALS: BP 99/62
[2024-02-02] MEDS ORDERED: ASPIRIN 81 MG/TAB PO SCH (09:00)
[2024-02-02] MEDS ORDERED: DULOXETINE HCl 30 MG/CAP PO SCH (09:00)
[2024-02-02 09:13] VITALS: BP 99/62
--- NOTE | 2024-02-02 09:45 | NUR ---
TELE NEOROLOGIST CONSULTED AND DISCUSSED CARE BUT PT WAS FALLING ASLEEP DURING THE CONSULT AND HAD TO BE AWAKENED FREQUENTLY.
--- NOTE | 2024-02-02 09:59 | NUR ---
AWAKE AND ALERT AT THIS TIME, JUST SAT UP FOR BREAKFAST MEAL, NO C/O DOSCOMFORT AT THIS TIME.
--- NOTE | 2024-02-02 11:19 | NUR ---
EXTREMELY LETHARGIC BUT ORIENTED, MEDICATED FOR MRI PROCEDURE.
--- NOTE | 2024-02-02 11:42 | NUR ---
TRANSPORTED OFF UNIT VIA TO MRI PROCEDURE.
--- NOTE | 2024-02-02 13:00 | NUR ---
RETURNED TO UNIT TRANSPORTED VIA AND SETTLED IN BED, PT IS ORIENTED BUT APPEARS LETHARGIC, RESPONDS APPROPRIATELY TO ALL QUESTIONS.
--- NOTE | 2024-02-02 15:07 | NUR ---
Pt ID verified. Clinician attempted to evaluate patient. Pt in bed with sheet over her head, refusing to participate. Safety measures in place: call leon, tray table within reach, bed in low.
[2024-02-02 16:25] VITALS: BP 110/70
[2024-02-02 16:29] VITALS: BP 110/70
--- NOTE | 2024-02-02 18:10 | NUR ---
PT WIDE AWAKE AND ALERT AT THIS TIME EATING MEAL, STATES SHE WAS TIRED AND OUT AND WAS NOT AWARE SHE WAS BEING DISCHARGED. DISTRIBUTION CLERK REPORTED THAT SHE SPOKE WITH PT WHO MERELY ANSEWRED BUT DID RESPOND TO THE INFORMATION GIVEN BY ACKNOWLEDGING WITH "UM,UM", SHE ALSO SAID PT DID WAKE UP TO CONSUME MEALS. D/C INSTRUCTIONS REVIEWED WITH PT AT THIS TIME, SAID SHE WILL CALL FOR A RIDE HOME.
--- NOTE | 2024-02-02 19:00 | NUR ---
Discharge instructions given. Patient verbalizes understanding of same. Discharged in good condition via Wheelchair to Home with family. All belongings sent with pt.
[2024-02-03] MEDS ORDERED: PNEUMOCOCCAL 20-VALENT CONJUGA 0.5 ML/DOSE INJ IM SCH (09:00)
== END 2024-02-02 18:20 | disposition home or self-care (01) ==
LOC: ED 14:40 → ED-I 18:20 → MS2 19:06 → ED 19:06 → MS2 19:06
PROVIDERS: Nurse Practitioner; ADMIT Student in an Organized Health Care Education/Training Program; ATTEND Student in an Organized Health Care Education/Training Program
DX: G43.909 Migraine, unspecified, not intractable, without status migrainosus (principal); I25.10 Atherosclerotic heart disease of native coronary artery without angina pectoris; J44.9 Chronic obstructive pulmonary disease, unspecified; M32.9 Systemic lupus erythematosus, unspecified; K21.9 Gastro-esophageal reflux disease without esophagitis; F41.9 Anxiety disorder, unspecified; I25.2 Old myocardial infarction; Z87.891 Personal history of nicotine dependence; Z88.6 Allergy status to analgesic agent; Z88.1 Allergy status to other antibiotic agents; Z88.5 Allergy status to narcotic agent; Z88.0 Allergy status to penicillin
CPT/HCPCS: A9579; G0378; J1650; Q9967

== ENCOUNTER 2024-03-14 00:57 | Emergency (ER) | payer OTHER ==
[~2024-03-14] VITALS: Ht 162.6 cm; Wt 70.0 kg
[2024-03-14 01:43] VITALS: BP 104/74
[2024-03-14 01:46] VITALS: BP 103/72
[2024-03-14] MEDS ORDERED: DiphenhydrAMINE HCL 25 MG CPLT PO ONE (01:50)
[2024-03-14] MEDS ORDERED: ALBUTEROL SULFATE 2.5 MG VIAL IN ONE (01:50)
[2024-03-14] MEDS ORDERED: methylPREDNISolone SODIUM SUCC 125 MG/2 ML SDV IM ONE (01:50)
[2024-03-14] MEDS ORDERED: methylPREDNISolone SODIUM SUCC 125 MG/2 ML SDV IV ONE (01:55)
[2024-03-14 02:00] VITALS: BP 119/70
[2024-03-14 02:15] VITALS: BP 119/73
[2024-03-14 02:30] VITALS: BP 126/75
[2024-03-14 02:36] VITALS: BP 126/75
[2024-03-15] MEDS ORDERED: VIBRAMYCIN100 M2 PO (02:23)
[2024-03-15] MEDS ORDERED: HYDROXYZ HCL25 MG PO (16:57)
[2024-03-15] MEDS ORDERED: HYDROXYCHLOR200 MG PO (16:58)
== END 2024-03-14 02:36 | disposition home or self-care (01) ==
LOC: ED 00:57
DX: J45.901 Unspecified asthma with (acute) exacerbation (principal); T63.421A Toxic effect of venom of ants, accidental (unintentional), initial encounter; L29.9 Pruritus, unspecified; I25.10 Atherosclerotic heart disease of native coronary artery without angina pectoris; I25.2 Old myocardial infarction; J44.9 Chronic obstructive pulmonary disease, unspecified; F41.9 Anxiety disorder, unspecified; K21.9 Gastro-esophageal reflux disease without esophagitis; Y92.008 Other place in unspecified non-institutional (private) residence as the place of occurrence of the external cause

== ENCOUNTER 2024-03-14 23:42 | Emergency (ER) | payer OTHER ==
[~2024-03-14] VITALS: Ht 162.6 cm; Wt 90.7 kg
[2024-03-14 23:51] VITALS: BP 113/62
[2024-03-15] VITALS (12 sets, daily range): BP systolic 96–119; BP diastolic 53–77
[2024-03-15 01:27] LABS: EOS% 0.1 % (0-8); HEMATOCRIT 33.1 % (37.0-47.0); HEMOGLOBIN 10.7 g/dl (12.0-16.0); IMMATURE GRANULOCYTES 0.2 % (0.0-5.0); LYMPH% 17.9 % (15-41); MEAN CELL VOLUME 70.7 fL CALC (80.0-100.0); MEAN CORPUSCULAR HGB 22.9 pG CALC (26.0-32.0); MEAN CORPUSCULAR HGB CONC 32.3 g/dL CAL (32.0-36.0); MONO% 11.1 % (2-13); NEUT# 9.33 thou/uL (2.00-7.15); NEUT% 70.7 % (42-76); RED BLOOD COUNT 4.68 mill/uL (4.20-5.60); RED CELL DISTRI WIDTH 14.9 % (11.5-15.5)
[2024-03-15 01:34] LABS: TOTAL PROTEIN 6.7 g/dL (6.3-8.2)
[2024-03-15 01:36] LABS: ALBUMIN 4.1 g/dL (3.2-5.0); BILIRUBIN, TOTAL 0.3 mg/dL (0.02-1.3)
[2024-03-15 01:37] LABS: D-DIMER 0.74 mg/L (0.19-0.60)
[2024-03-15 01:40] LABS: INTERNATIONAL NORMALIZED RATIO 1.1 RATIO (0.7-1.3)
[2024-03-15 01:44] LABS: PROTHROMBIN TIME 10.6 SECONDS (9.0-12.5)
[2024-03-15] MEDS ORDERED: DOXYCYCLINE HYCLATE 100 MG/CAP PO ONE (02:20)
[2024-03-15] MEDS ORDERED: VIBRAMYCIN100 M2 PO (02:23)
[2024-03-15] MEDS ORDERED: HYDROXYZ HCL25 MG PO (16:57)
[2024-03-15] MEDS ORDERED: HYDROXYCHLOR200 MG PO (16:58)
== END 2024-03-15 02:50 | disposition home or self-care (01) ==
LOC: ED 23:42
PROVIDERS: Emergency Medicine
DX: J18.9 Pneumonia, unspecified organism (principal); J44.0 Chronic obstructive pulmonary disease with (acute) lower respiratory infection; F41.9 Anxiety disorder, unspecified; I25.10 Atherosclerotic heart disease of native coronary artery without angina pectoris; K21.9 Gastro-esophageal reflux disease without esophagitis; I25.2 Old myocardial infarction

== ENCOUNTER 2024-03-15 14:36 | Observation (INO) | payer OTHER ==
[~2024-03-15] VITALS: Ht 162.6 cm; Wt 92.9 kg
[2024-03-15] VITALS (8 sets, daily range): BP systolic 103–121; BP diastolic 60–78
[~2024-03-15 14:36] MED LIST changes: +VIBRAMYCIN100 M2 PO
--- NOTE | 2024-03-15 14:36 | NUR ---
PATIENT ARRIVED TO ER VIA POV. PATIENT AMBULATED TO ROOM WITH ER STAFF. PATIENT AWAKE, ALERT AND STABLE. NO DISTRESS NOTED. PHYSICIAN NOTIFIED.
[2024-03-15] MEDS ORDERED: Levofloxacin 750 mg Premix 150 ML IV ONE (15:05)
[2024-03-15 15:12] LABS: BASO% 0.2 % (0-3); EOS% 0.5 % (0-8); HEMATOCRIT 34.6 % (37.0-47.0); IMMATURE GRANULOCYTES 0.1 % (0.0-5.0); LYMPH% 39.5 % (15-41); MEAN CELL VOLUME 71.3 fL CALC (80.0-100.0); MEAN CORPUSCULAR HGB 22.7 pG CALC (26.0-32.0); MEAN CORPUSCULAR HGB CONC 31.8 g/dL CAL (32.0-36.0); MONO% 7.4 % (2-13); NEUT# 5.14 thou/uL (2.00-7.15); NEUT% 52.3 % (42-76); RED BLOOD COUNT 4.85 mill/uL (4.20-5.60); RED CELL DISTRI WIDTH 15.3 % (11.5-15.5)
[2024-03-15] MEDS ORDERED: methylPREDNISolone SODIUM SUCC 125 MG/2 ML SDV IV ONE (15:15)
[2024-03-15] MEDS ORDERED: IPRATROPIUM-Albuterol 0.5MG-2.5MG/3 ML NEB ONE ×2 (15:15)
--- NOTE | 2024-03-15 15:15 | NUR ---
PATIENT AWAKE, ALERT AND STABLE. NO DISTRESS NOTED. VITALS WNL. PATIENT HAS NO QUESTIONS OR CONCERNS. WILL CONTINUE TO MONITOR.
[2024-03-15 15:29] LABS: ALBUMIN 4.2 g/dL (3.2-5.0); BILIRUBIN, TOTAL 0.4 mg/dL (0.02-1.3); CREATININE 0.9 mg/dL (0.5-1.0); POTASSIUM 4.2 mmol/l (3.5-5.1); TOTAL PROTEIN 7.2 g/dL (6.3-8.2)
--- NOTE | 2024-03-15 16:03 | NUR ---
PATIENT AWAKE, ALERT AND STABLE. NO DISRTESS NOTED. PATIENT DENIES ANY PAIN. VITALS WNL. PATIENT HAS NO QUESTIONS OR CONCERNS. WILL CONTINUE TO MONITOR.
[2024-03-15] MEDS ORDERED: HYDROXYZ HCL25 MG PO (16:57)
[2024-03-15] MEDS ORDERED: HYDROXYCHLOR200 MG PO (16:58)
--- NOTE | 2024-03-15 17:08 | NUR ---
NURSE TO NURSE REPORT GIVEN. PATIENT TRANSPORTED BY WHEELCHAIR TO ROOM 270.
[2024-03-15] MEDS ORDERED: MAGNESIUM HYDROXIDE 30 ML UDC PO PRN (17:10)
[2024-03-15] MEDS ORDERED: ACETAMINOPHEN 325 MG/TAB PO PRN (17:10)
[2024-03-15] MEDS ORDERED: SODIUM CHLORIDE 0.9% 1,000 ML IV PRN (17:10)
[2024-03-15] MEDS ORDERED: IPRATROPIUM-Albuterol 0.5MG-2.5MG/3 ML IN PRN (17:10)
[2024-03-15] MEDS ORDERED: ALPRAZolam 1 MG/TAB PO PRN (17:10)
--- NOTE | 2024-03-15 20:00 | NUR ---
RECIEVED PT IN IN STAVLE CONDITION. A/O X4. NO SIGNS OF DISTRESS/DISCOMFORT. IV TO RAC SALINE LOCK. TELEMETRY # 12. CALL LIGHT IN REACH. WILL CONTINUE TO MONITOR.
[2024-03-15] MEDS ORDERED: MIRTAZAPINE 15 MG/TAB PO SCH (21:00)
[2024-03-15] MEDS ORDERED: ENOXAPARIN SODIUM 40 MG/0.4 ML SYR SC SCH (21:00)
[2024-03-15] MEDS ORDERED: GABAPENTIN 300 MG/CAP PO SCH (21:00)
[2024-03-15] MEDS ORDERED: methylPREDNISolone Sod Succ 40 MG/ML SDV IV SCH (22:00)
[2024-03-16] VITALS (9 sets, daily range): BP systolic 98–121; BP diastolic 54–71
--- NOTE | 2024-03-16 | NUR ---
PT RESTING IN BED QUIETLY. APPEARED ASLEEP IN STABLE CONDITION. CALL LIGHT IN REACH. WILL CONTINUE TO MONITOR.
--- NOTE | 2024-03-16 04:00 | NUR ---
PT HAD NO COMPLAINTS OR DISTRESS AT THIS TIME. CALL LIGHT IN REACH.
--- NOTE | 2024-03-16 07:38 | NUR ---
PT IS AOX4, RESPIRATIONS ARE EVEN AND UNLABORED, EXPIRATORY WHEEZING NOTED TO THE BILATERAL LOWER LOBES AND LEFT UPPER LOBE, TRISH SOUNDS ARE ACTIVE, PEDAL PULSES ARE PALPABLE TO TOUCH, PT REPORTS FEELING LIKE "MY BONES ARE HURTING" BUT STATES ITS "NOT BAD"
[2024-03-16] MEDS ORDERED: DULOXETINE HCl 30 MG/CAP PO SCH (09:00)
[2024-03-16] MEDS ORDERED: ASPIRIN 81 MG/TAB PO SCH (09:00)
[2024-03-16] MEDS ORDERED: Levofloxacin 750 mg Premix 150 ML IV SCH (15:00)
--- NOTE | 2024-03-16 20:00 | NUR ---
PT RESTING IN BED NO DISTRESS NOTED. PT REPORTS NO PAIN. IV SITE FLUSHED WORKING PROPERLY BUT DRESSING HAS BLOOD UNDERNEATH IT NS INFUSION ONGOING 100ML/HR. ASSESSMENT DONE VS WNL ON RA. PT STATED WANTING PRN MEDICATION LATER ON. NURSE INFORM PT TO JUST LET HER KNOW WHEN SHE WAS READY TO TAKE THEM TO USE THE CALL LIGHT. PT WAS PROVIDED WITH MULTIPLE SNACKS AND ORAL FLUIDS. CALL LIGHT WITHIN REACH. PLAN OF CARE ONGOING.
--- NOTE | 2024-03-16 22:00 | NUR ---
PT AMBULATING IN THE HALLWAY WITH STAND BY ASSISTANCE.
[2024-03-17 00:02] VITALS: BP 106/65
--- NOTE | 2024-03-17 02:07 | NUR ---
PT RESTING NO DISTRESS NOTED ON EXAM. CALL LIGHT WITHIN REACH. PLAN OF CARE ONGOING.
[2024-03-17 03:50] VITALS: BP 102/53
--- NOTE | 2024-03-17 04:00 | NUR ---
PT RESTING NO DISTRESS NOTED ON EXAM . IV SITE CHECKED WORKING PROPERLY. CALL LIGHT WITHIN REACH. PLAN OF CARE ONGOING.
[2024-03-17 04:57] VITALS: BP 102/53
[2024-03-17 05:20] LABS: BASO% 0.1 % (0-3); HEMATOCRIT 34.9 % (37.0-47.0); HEMOGLOBIN 11.1 g/dl (12.0-16.0); IMMATURE GRANULOCYTES 0.3 % (0.0-5.0); LYMPH% 5.9 % (15-41); MEAN CELL VOLUME 72.1 fL CALC (80.0-100.0); MEAN CORPUSCULAR HGB 22.9 pG CALC (26.0-32.0); MEAN CORPUSCULAR HGB CONC 31.8 g/dL CAL (32.0-36.0); MONO% 4.1 % (2-13); NEUT# 16.03 thou/uL (2.00-7.15); NEUT% 89.6 % (42-76); RED BLOOD COUNT 4.84 mill/uL (4.20-5.60)
[2024-03-17 05:33] LABS: ALBUMIN 3.8 g/dL (3.2-5.0); CREATININE 0.7 mg/dL (0.5-1.0); MAGNESIUM 2.1 mg/dL (1.6-2.3); POTASSIUM 4.6 mmol/l (3.5-5.1); TOTAL PROTEIN 6.3 g/dL (6.3-8.2)
[2024-03-17 05:37] LABS: BILIRUBIN, TOTAL 0.2 mg/dL (0.02-1.3)
--- NOTE | 2024-03-17 07:40 | NUR ---
PT AOX4, RESPIRATIONS ARE EVEN AND UNLABORED, LUNGS ARE CLEAR, BOWEL SOUNDS ARE ACTIVE, PEDAL PULSES ARE PALPABLE TO TOUCH. PT COMPLAINING OF "CHEST PAIN THAT COMES AND GOES" STATES SHE "FORGOT TO TELL ANYONE BECAUSE SHE FELL ASLEEP" NOTIFIED FLAKO BRIDGES.
[2024-03-17 08:01] VITALS: BP 103/58
--- NOTE | 2024-03-17 08:29 | NUR ---
DR OROZCO AT BEDSIDE DISCUSSING PLAN OF CARE WITH PT AT THIS TIME.
[2024-03-17] MEDS ORDERED: PANTOPRAZOLE SODIUM Sesquihydr 40 MG/TAB PO SCH (09:00)
[2024-03-17] MEDS ORDERED: LEVOFLOXACIN500MG PO (09:06)
--- NOTE | 2024-03-17 10:28 | NUR ---
REVIEWED DISCHARGE INSTRUCTIONS WITH PT. BRIT'Warren IV, REMOVED TELE BOX NUMBER 12 AND PLACED IT IN THE BIN AT NURSES STATION.
--- NOTE | 2024-03-17 10:40 | NUR ---
PT LEFT THE FLOOR VIA WHEELCHAIR/STAFF WITH BELONGINGS IN HAND.
== END 2024-03-17 10:38 | disposition home or self-care (01) ==
LOC: ED 14:36 → ED-I 15:24 → ED 15:24 → ED-I 16:00 → ED 16:12 → MS2 16:13
PROVIDERS: Family Medicine; Nurse Practitioner Family; ADMIT Internal Medicine; ATTEND Internal Medicine
DX: J18.9 Pneumonia, unspecified organism (principal); J45.901 Unspecified asthma with (acute) exacerbation; J44.0 Chronic obstructive pulmonary disease with (acute) lower respiratory infection; I25.10 Atherosclerotic heart disease of native coronary artery without angina pectoris; M32.9 Systemic lupus erythematosus, unspecified; F41.9 Anxiety disorder, unspecified; K21.9 Gastro-esophageal reflux disease without esophagitis; I25.2 Old myocardial infarction; Z20.822 Contact with and (suspected) exposure to COVID-19
CPT/HCPCS: J1650

== ENCOUNTER 2024-04-10 01:13 | Emergency (ER) | payer OTHER ==
[~2024-04-10] VITALS: Ht 162.6 cm; Wt 89.0 kg
[~2024-04-10 01:13] MED LIST changes: +HYDROXYCHLOR200 MG PO; +HYDROXYZ HCL25 MG PO
[2024-04-10 01:57] VITALS: BP 123/79
[2024-04-10 02:06] VITALS: BP 115/75
[2024-04-10] MEDS ORDERED: ALBUTEROL SULFATE 2.5 MG VIAL NEB ONE (02:15)
[2024-04-10] MEDS ORDERED: SODIUM CHLORIDE 0.9% 1,000 ML IV ONE (02:15)
[2024-04-10] MEDS ORDERED: IPRATROPIUM-Albuterol 0.5MG-2.5MG/3 ML NEB ONE (02:15)
[2024-04-10] MEDS ORDERED: DEXAMETHASONE SOD. PHOSPHATE 10 MG/ML VIAL IV ONE (02:15)
[2024-04-10] MEDS ORDERED: Levofloxacin 750 mg Premix 150 ML IV ONE (02:20)
[2024-04-10] MEDS ORDERED: TRAZODONE100 MG PO (02:29)
[2024-04-10 02:30] VITALS: BP 120/73
[2024-04-10] MEDS ORDERED: FOLIC ACID1 MG PO (02:30)
[2024-04-10] MEDS ORDERED: DOXYCYCLINE HY100 MG PO (02:30)
[2024-04-10 02:49] LABS: BASO% 0.1 % (0-3); EOS% 1.2 % (0-8); HEMATOCRIT 36.3 % (37.0-47.0); HEMOGLOBIN 11.3 g/dl (12.0-16.0); IMMATURE GRANULOCYTES 0.2 % (0.0-5.0); MEAN CELL VOLUME 73.2 fL CALC (80.0-100.0); MEAN CORPUSCULAR HGB 22.8 pG CALC (26.0-32.0); MEAN CORPUSCULAR HGB CONC 31.1 g/dL CAL (32.0-36.0); MONO% 10.2 % (2-13); NEUT# 3.55 thou/uL (2.00-7.15); NEUT% 44.3 % (42-76); RED BLOOD COUNT 4.96 mill/uL (4.20-5.60); RED CELL DISTRI WIDTH 15.2 % (11.5-15.5)
[2024-04-10] MEDS ORDERED: ONDANSETRON HCl 4 MG/2 ML SDV IV ONE (03:00)
[2024-04-10 03:12] LABS: ALKALINE PHOSPHATASE 60 u/l (38-126); ANION GAP 7 (6-22 (CALC)); BUN 14 mg/dL (7-17); BUN/CREATININE RATIO 17 (12-20 (CALC)); CARBON DIOXIDE 24 mmol/l (22-30); CHLORIDE 109 mmol/l (95-108); CREATININE 0.9 mg/dL (0.5-1.0); ESTIMATED GFR 82 ML/MIN (>=90 (CALC)); POTASSIUM 3.7 mmol/l (3.5-5.1); SODIUM 137 mmol/l (137-146); TOTAL PROTEIN 6.6 g/dL (6.3-8.2)
[2024-04-10 03:24] LABS: BILIRUBIN, TOTAL 0.3 mg/dL (0.02-1.3); SGOT/AST 34 u/l (14-36)
[2024-04-10 03:31] VITALS: BP 125/81
[2024-04-10] MEDS ORDERED: HYDROcodone 7.5 MG/Acetaminophen 325 MG/COMBO PO ONE (03:35)
[2024-04-10] MEDS ORDERED: DiphenhydrAMINE HCL 50 MG/ML SDV IV ONE (03:45)
[2024-04-10] MEDS ORDERED: DEXAMETHASON6 MG PO (03:54)
[2024-04-10] MEDS ORDERED: ONDANSETRON4 MG PO (03:54)
[2024-04-10] MEDS ORDERED: LEVOFLOXACIN500MG PO (03:56)
[2024-04-10 04:30] VITALS: BP 109/74
[2024-04-10 04:39] VITALS: BP 109/74
== END 2024-04-10 04:39 | disposition home or self-care (01) ==
LOC: ED 01:13
PROVIDERS: Emergency Medicine
DX: J06.9 Acute upper respiratory infection, unspecified (principal); J44.1 Chronic obstructive pulmonary disease with (acute) exacerbation; I25.10 Atherosclerotic heart disease of native coronary artery without angina pectoris; F41.9 Anxiety disorder, unspecified; K21.9 Gastro-esophageal reflux disease without esophagitis; Z86.73 Personal history of transient ischemic attack (TIA), and cerebral infarction without residual deficits; Z20.822 Contact with and (suspected) exposure to COVID-19

== ENCOUNTER 2024-04-21 16:06 | Emergency (ER) | payer OTHER ==
[~2024-04-21] VITALS: Ht 162.6 cm; Wt 90.7 kg
[2024-04-21] VITALS (21 sets, daily range): BP systolic 100–128; BP diastolic 52–107
[~2024-04-21 16:06] MED LIST changes: +DEXAMETHASON6 MG PO; +DOXYCYCLINE HY100 MG PO; +FOLIC ACID1 MG PO; +TRAZODONE100 MG PO
[2024-04-21] MEDS ORDERED: IPRATROPIUM-Albuterol 0.5MG-2.5MG/3 ML NEB ONE ×2 (16:15)
[2024-04-21] MEDS ORDERED: methylPREDNISolone SODIUM SUCC 125 MG/2 ML SDV IV ONE (16:15)
[2024-04-21] MEDS ORDERED: AZITHROMYCIN 500 MG in SODIUM CHLORIDE 0.9% 250 ML IV ONE (16:20)
[2024-04-21 16:35] LABS: BASO% 0.3 % (0-3); EOS% 0.4 % (0-8); HEMATOCRIT 33.9 % (37.0-47.0); HEMOGLOBIN 10.6 g/dl (12.0-16.0); IMMATURE GRANULOCYTES 0.9 % (0.0-5.0); LYMPH% 34.4 % (15-41); MEAN CELL VOLUME 71.8 fL CALC (80.0-100.0); MEAN CORPUSCULAR HGB 22.5 pG CALC (26.0-32.0); MEAN CORPUSCULAR HGB CONC 31.3 g/dL CAL (32.0-36.0); MONO% 8.6 % (2-13); NEUT# 6.02 thou/uL (2.00-7.15); NEUT% 55.4 % (42-76); RED BLOOD COUNT 4.72 mill/uL (4.20-5.60); RED CELL DISTRI WIDTH 15.4 % (11.5-15.5)
[2024-04-21 16:53] LABS: ALBUMIN 4.2 g/dL (3.2-5.0); ALKALINE PHOSPHATASE 62 u/l (38-126); ANION GAP 11 (6-22 (CALC)); BUN 19 mg/dL (7-17); BUN/CREATININE RATIO 19 (12-20 (CALC)); CARBON DIOXIDE 25 mmol/l (22-30); CHLORIDE 110 mmol/l (95-108); ESTIMATED GFR 72 ML/MIN (>=90 (CALC)); POTASSIUM 4.3 mmol/l (3.5-5.1); SGOT/AST 26 u/l (14-36); SODIUM 142 mmol/l (137-146); TOTAL PROTEIN 6.6 g/dL (6.3-8.2)
[2024-04-21 16:54] LABS: BILIRUBIN, TOTAL 0.1 mg/dL (0.02-1.3)
[2024-04-21] MEDS ORDERED: HYDROmorphone HCL 2 MG/AMP IV ONE (17:00)
[2024-04-21] MEDS ORDERED: SODIUM CHLORIDE 0.9% 1,000 ML IV ONE (17:05)
[2024-04-21] MEDS ORDERED: ALBUTEROL SULFATE 2.5 MG VIAL IN ONE (17:15)
== END 2024-04-21 21:00 | disposition home or self-care (01) ==
LOC: ED 16:06
PROVIDERS: Family Medicine
DX: J45.901 Unspecified asthma with (acute) exacerbation (principal); J44.9 Chronic obstructive pulmonary disease, unspecified; I25.10 Atherosclerotic heart disease of native coronary artery without angina pectoris; F41.9 Anxiety disorder, unspecified; K21.9 Gastro-esophageal reflux disease without esophagitis; Z86.73 Personal history of transient ischemic attack (TIA), and cerebral infarction without residual deficits

== ENCOUNTER 2024-04-24 23:55 | Emergency (ER) | payer OTHER ==
[~2024-04-24] VITALS: Ht 162.6 cm; Wt 90.0 kg
[2024-04-25 00:55] VITALS: BP 107/66
== END 2024-04-25 01:11 | disposition home or self-care (01) ==
LOC: ED 23:55
DX: S83.92XA Sprain of unspecified site of left knee, initial encounter (principal); I25.10 Atherosclerotic heart disease of native coronary artery without angina pectoris; J44.9 Chronic obstructive pulmonary disease, unspecified; F41.9 Anxiety disorder, unspecified; K21.9 Gastro-esophageal reflux disease without esophagitis; I25.2 Old myocardial infarction; W18.40XA Slipping, tripping and stumbling without falling, unspecified, initial encounter; Y92.009 Unspecified place in unspecified non-institutional (private) residence as the place of occurrence of the external cause; Z86.73 Personal history of transient ischemic attack (TIA), and cerebral infarction without residual deficits

== ENCOUNTER 2024-05-19 20:59 | Emergency (ER) | payer OTHER ==
[~2024-05-19] VITALS: Ht 162.6 cm; Wt 96.0 kg
[2024-05-19 21:07] VITALS: BP 117/87
[2024-05-19] MEDS ORDERED: methylPREDNISolone SODIUM SUCC 125 MG/2 ML SDV IV ONE (21:20)
[2024-05-19] MEDS ORDERED: IPRATROPIUM-Albuterol 0.5MG-2.5MG/3 ML NEB ONE ×4 (21:20→22:30)
[2024-05-19] MEDS ORDERED: ASPIRIN 81 MG/TAB PO ONE (21:20)
[2024-05-19 21:26] LABS: BASO% 0.1 % (0-3); EOS% 1.5 % (0-8); HEMATOCRIT 34.4 % (37.0-47.0); HEMOGLOBIN 10.7 g/dl (12.0-16.0); IMMATURE GRANULOCYTES 0.3 % (0.0-5.0); LYMPH% 39.1 % (15-41); MEAN CELL VOLUME 74.8 fL CALC (80.0-100.0); MEAN CORPUSCULAR HGB 23.3 pG CALC (26.0-32.0); MEAN CORPUSCULAR HGB CONC 31.1 g/dL CAL (32.0-36.0); MONO% 8.6 % (2-13); NEUT# 3.7 thou/uL (2.00-7.15); NEUT% 50.4 % (42-76); RED BLOOD COUNT 4.6 mill/uL (4.20-5.60); RED CELL DISTRI WIDTH 15.6 % (11.5-15.5)
[2024-05-19 21:30] VITALS: BP 114/82
[2024-05-19 21:38] LABS: ALKALINE PHOSPHATASE 59 u/l (38-126); ANION GAP 6 (6-22 (CALC)); BUN 16 mg/dL (7-17); BUN/CREATININE RATIO 20 (12-20 (CALC)); CARBON DIOXIDE 26 mmol/l (22-30); CHLORIDE 109 mmol/l (95-108); CREATININE 0.8 mg/dL (0.5-1.0); ESTIMATED GFR 94 ML/MIN (>=90 (CALC)); LIPASE 85 u/l (23-300); POTASSIUM 4.2 mmol/l (3.5-5.1); SGOT/AST 24 u/l (14-36); SODIUM 137 mmol/l (137-146); TOTAL PROTEIN 6.3 g/dL (6.3-8.2)
[2024-05-19 21:50] LABS: BILIRUBIN, TOTAL 0.2 mg/dL (0.02-1.3)
[2024-05-19 22:00] VITALS: BP 114/72
[2024-05-19 22:30] VITALS: BP 111/70
[2024-05-19] MEDS ORDERED: oxyCODONE 5MG/ ACETAMINOPHEN 325MG TAB PO ONE (22:30)
[2024-05-19 23:00] VITALS: BP 101/61
[2024-05-19 23:30] VITALS: BP 104/70
[2024-05-20 00:01] VITALS: BP 117/73
[2024-05-20] MEDS ORDERED: IPRATROPIU0.5 MG/3 M IN (00:28)
[2024-05-20] MEDS ORDERED: NEBULIZER NEB (00:28)
[2024-05-20] MEDS ORDERED: PREDNISONE50 MG PO (00:28)
[2024-05-20 00:30] VITALS: BP 106/84
[2024-05-20 00:34] VITALS: BP 106/84
[2024-05-20] MEDS ORDERED: TRAMADOL HYDROC50 M1 PO (00:43)
[2024-05-20] MEDS ORDERED: TRAMADOL HCL50 MG PO (21:42)
[2024-05-20] MEDS ORDERED: HYDROXYCHLOR200 MG PO (21:43)
[2024-05-20] MEDS ORDERED: GABAPENTIN300 M2 PO (21:46)
[2024-05-20] MEDS ORDERED: CYMBALTA30 MG PO (21:49)
== END 2024-05-20 00:51 | disposition home or self-care (01) ==
LOC: ED 20:59
PROVIDERS: Emergency Medicine
DX: J20.9 Acute bronchitis, unspecified (principal); R07.9 Chest pain, unspecified; I25.10 Atherosclerotic heart disease of native coronary artery without angina pectoris; J44.9 Chronic obstructive pulmonary disease, unspecified; F41.9 Anxiety disorder, unspecified; K21.9 Gastro-esophageal reflux disease without esophagitis; I25.2 Old myocardial infarction; Z86.73 Personal history of transient ischemic attack (TIA), and cerebral infarction without residual deficits

== ENCOUNTER 2024-05-20 13:23 | Observation (INO) | payer OTHER ==
[2024-05-20] VITALS (23 sets, daily range): BP systolic 103–149; BP diastolic 48–93
[~2024-05-20] VITALS: Ht 162.6 cm; Wt 94.4 kg
[~2024-05-20 13:23] MED LIST changes: +NEBULIZER NEB
[2024-05-20] MEDS ORDERED: HYDROmorphone HCL 2 MG/AMP IV ONE (15:25)
[2024-05-20] MEDS ORDERED: IPRATROPIUM-Albuterol 0.5MG-2.5MG/3 ML NEB ONE (15:25)
[2024-05-20] MEDS ORDERED: methylPREDNISolone SODIUM SUCC 125 MG/2 ML SDV IV ONE (15:25)
[2024-05-20 16:12] LABS: BASO% 0.1 % (0-3); HEMATOCRIT 37.1 % (37.0-47.0); HEMOGLOBIN 11.5 g/dl (12.0-16.0); IMMATURE GRANULOCYTES 0.2 % (0.0-5.0); LYMPH% 7.4 % (15-41); MEAN CELL VOLUME 74.1 fL CALC (80.0-100.0); MONO% 5.2 % (2-13); NEUT# 13.35 thou/uL (2.00-7.15); NEUT% 87.1 % (42-76); RED BLOOD COUNT 5.01 mill/uL (4.20-5.60); RED CELL DISTRI WIDTH 15.5 % (11.5-15.5)
[2024-05-20 16:25] LABS: ALBUMIN 4.1 g/dL (3.2-5.0); ALKALINE PHOSPHATASE 64 u/l (38-126); ANION GAP 7 (6-22 (CALC)); BUN 17 mg/dL (7-17); BUN/CREATININE RATIO 24 (12-20 (CALC)); CARBON DIOXIDE 24 mmol/l (22-30); CHLORIDE 111 mmol/l (95-108); CREATININE 0.7 mg/dL (0.5-1.0); ESTIMATED GFR 111 ML/MIN (>=90 (CALC)); POTASSIUM 4.4 mmol/l (3.5-5.1); SGOT/AST 23 u/l (14-36); SODIUM 138 mmol/l (137-146); TOTAL PROTEIN 6.6 g/dL (6.3-8.2)
[2024-05-20 16:29] LABS: BILIRUBIN, TOTAL 0.3 mg/dL (0.02-1.3)
[2024-05-20] MEDS ORDERED: CLOPIDOGREL BISULFATE 75 MG/TAB TAB PO ONE (19:00)
[2024-05-20] MEDS ORDERED: MAGNESIUM HYDROXIDE 30 ML UDC PO PRN (20:05)
[2024-05-20] MEDS ORDERED: ACETAMINOPHEN 325 MG/TAB PO PRN (20:05)
[2024-05-20] MEDS ORDERED: SODIUM CHLORIDE 0.9% 1,000 ML IV PRN (20:05)
[2024-05-20] MEDS ORDERED: ONDANSETRON HCl 4 MG/2 ML SDV IV PRN (20:10)
[2024-05-20] MEDS ORDERED: NITROGLYCERIN 0.4 MG/TAB SL PRN (20:10)
[2024-05-20] MEDS ORDERED: ENOXAPARIN SODIUM 40 MG/0.4 ML SYR SC SCH (21:00)
[2024-05-20] MEDS ORDERED: methylPREDNISolone Sod Succ 40 MG/ML SDV IV SCH (21:00)
[2024-05-20] MEDS ORDERED: hydrOXYzine HCL 25 MG/TAB PO SCH (21:00)
[2024-05-20] MEDS ORDERED: traZODone HCL 50 MG/TAB PO SCH (21:00)
[2024-05-20] MEDS ORDERED: GABAPENTIN 300 MG/CAP PO SCH (21:00)
[2024-05-20] MEDS ORDERED: MONTELUKAST SODIUM 10 MG/TAB PO SCH (21:00)
[2024-05-20] MEDS ORDERED: TRAMADOL HCL50 MG PO (21:42)
[2024-05-20] MEDS ORDERED: HYDROXYCHLOR200 MG PO (21:43)
[2024-05-20] MEDS ORDERED: GABAPENTIN300 M2 PO (21:46)
[2024-05-20] MEDS ORDERED: CYMBALTA30 MG PO (21:49)
[2024-05-20] MEDS ORDERED: traMADol HCL 50 MG/TAB PO PRN (22:40)
[2024-05-20] MEDS ORDERED: IPRATROPIUM-Albuterol 0.5MG-2.5MG/3 ML NEB SCH (23:00)
[2024-05-20] MEDS ORDERED: ALPRAZolam 0.5 MG/TAB PO PRN (23:05)
[2024-05-21] VITALS (13 sets, daily range): BP systolic 90–128; BP diastolic 40–72
[2024-05-21 04:59] LABS: BASO% 0.1 % (0-3); HEMATOCRIT 34.5 % (37.0-47.0); HEMOGLOBIN 10.7 g/dl (12.0-16.0); IMMATURE GRANULOCYTES 0.3 % (0.0-5.0); LYMPH% 6.7 % (15-41); MEAN CELL VOLUME 73.9 fL CALC (80.0-100.0); MEAN CORPUSCULAR HGB 22.9 pG CALC (26.0-32.0); MONO% 2.4 % (2-13); NEUT# 13.04 thou/uL (2.00-7.15); NEUT% 90.5 % (42-76); RED BLOOD COUNT 4.67 mill/uL (4.20-5.60); RED CELL DISTRI WIDTH 15.6 % (11.5-15.5)
[2024-05-21 05:15] LABS: ALBUMIN 3.6 g/dL (3.2-5.0); BILIRUBIN, TOTAL 0.2 mg/dL (0.02-1.3); CREATININE 0.6 mg/dL (0.5-1.0); MAGNESIUM 2.2 mg/dL (1.6-2.3); POTASSIUM 4.4 mmol/l (3.5-5.1); TOTAL PROTEIN 6.1 g/dL (6.3-8.2)
[2024-05-21] MEDS ORDERED: DULOXETINE HCl 30 MG/CAP PO SCH (09:00)
[2024-05-21] MEDS ORDERED: ALPRAZolam 0.5 MG/TAB PO PRN (09:00)
[2024-05-21] MEDS ORDERED: AZITHROMYCIN 250 MG/TAB PO SCH (09:00)
[2024-05-21] MEDS ORDERED: FOLIC ACID 1 MG/TAB PO SCH (09:00)
[2024-05-21] MEDS ORDERED: HYDROXYCHLOROQUINE SULFATE 200 MG/TAB PO SCH (09:00)
[2024-05-22 00:08] VITALS: BP 95/47
[2024-05-22 00:15] VITALS: BP 95/47
[2024-05-22 05:01] VITALS: BP 94/46
[2024-05-22 05:39] LABS: BASO% 0.1 % (0-3); HEMATOCRIT 33.4 % (37.0-47.0); HEMOGLOBIN 10.3 g/dl (12.0-16.0); IMMATURE GRANULOCYTES 0.6 % (0.0-5.0); LYMPH% 5.7 % (15-41); MEAN CELL VOLUME 74.4 fL CALC (80.0-100.0); MEAN CORPUSCULAR HGB 22.9 pG CALC (26.0-32.0); MEAN CORPUSCULAR HGB CONC 30.8 g/dL CAL (32.0-36.0); MONO% 2.4 % (2-13); NEUT# 12.6 thou/uL (2.00-7.15); NEUT% 91.2 % (42-76); RED BLOOD COUNT 4.49 mill/uL (4.20-5.60); RED CELL DISTRI WIDTH 15.9 % (11.5-15.5)
[2024-05-22 05:56] LABS: ALBUMIN 3.4 g/dL (3.2-5.0); BILIRUBIN, TOTAL 0.2 mg/dL (0.02-1.3); CREATININE 0.7 mg/dL (0.5-1.0); POTASSIUM 4.2 mmol/l (3.5-5.1); TOTAL PROTEIN 5.9 g/dL (6.3-8.2)
[2024-05-22 07:00] VITALS: BP 90/43
[2024-05-22] MEDS ORDERED: ZPAK PO (10:02)
[2024-05-22 10:35] VITALS: BP 129/77
== END 2024-05-22 12:10 | disposition home or self-care (01) ==
LOC: ED 13:23 → ED-I 18:45 → ED 18:59 → MS2 19:00
PROVIDERS: Family Medicine; ADMIT Student in an Organized Health Care Education/Training Program; ATTEND Student in an Organized Health Care Education/Training Program
DX: J44.1 Chronic obstructive pulmonary disease with (acute) exacerbation (principal); J45.901 Unspecified asthma with (acute) exacerbation; D72.829 Elevated white blood cell count, unspecified; I25.10 Atherosclerotic heart disease of native coronary artery without angina pectoris; F41.9 Anxiety disorder, unspecified; F32.A Depression, unspecified; K21.9 Gastro-esophageal reflux disease without esophagitis; G89.29 Other chronic pain; I25.2 Old myocardial infarction; T48.996A Underdosing of other agents primarily acting on the respiratory system, initial encounter; Z91.138 Patient's unintentional underdosing of medication regimen for other reason; Z79.891 Long term (current) use of opiate analgesic; Z86.73 Personal history of transient ischemic attack (TIA), and cerebral infarction without residual deficits
CPT/HCPCS: G0378; J1650